=== PATIENT | male | born 1945 | race Caucasian/White ===

== ENCOUNTER 2021-04-20 09:08 | Emergency (ER) | payer MEDICARE, SELFPAY ==
--- NOTE | ~2021-04-20 | XR_ITS ---
EXAMINATION: XR ribs RT 2V DATE: 04/20/2021 10:26 INDICATION: Right low anterior chest pain after sneezing. TECHNIQUE: 2 views of the right ribs on 3 radiographs were obtained. COMPARISON: None. FINDINGS: A calcified right lung nodule is consistent with old granulomatous disease. No right-sided pleural effusion or pneumothorax. There is no rib fracture. IMPRESSION: 1. No rib fracture. Reviewed, dictated and finalized at location A. F EDUCATOR IMPRESSION: 1. No rib fracture.
[2021-04-20 09:38] VITALS: BP 144/67; PULSE 69; RESP 16; TEMP 37; O2SAT 96
--- NOTE | 2021-04-20 10:17 | ED.GENADULT ---
HPI - General Adult General Chief complaint: Unspecified Stated complaint: sharp pain under rib right side Time Seen by Provider: 04/20/21 10:07 Source: patient and RN notes reviewed Mode of arrival: ambulatory Limitations: no limitations History of Present Illness HPI narrative: Patient presents today complaining of right lower rib pain since 530 this morning after he sneezed. Pain increases with deep breath, coughing, and movement. Currently rates his pain 10/10. He has tried heat, cold, and ibuprofen without relief. MD complaint: Rib pain Related Data Home Medications Medication Instructions Recorded Confirmed aspirin 81 mg PO DAILY 04/20/21 04/20/21 atorvastatin 40 mg PO DAILY 04/20/21 04/20/21 levothyroxine 150 mcg PO DAILY 04/20/21 04/20/21 naproxen 500 mg PO PRN PRN 04/20/21 04/20/21 nitroglycerin 0.4 mg SUBLINGUAL PRN PRN 04/20/21 04/20/21 ramipril 10 mg PO DAILY 04/20/21 04/20/21 ropinirole 2 mg PO DAILY 04/20/21 04/20/21 sildenafil 25 mg PO DAILY PRN 04/20/21 04/20/21 Allergies Allergy/AdvReac Type Severity Reaction Status Date / Time No Known Allergies Allergy Unverified 07/24/17 12:37 Review of Systems Review of Systems: CONSTITUTIONAL: Denies body aches, fever, chills, or sweats. EYES: Denies visual changes, redness, or discharge. ENT: Denies rhinorrhea, congestion, sore throat, or otalgia. CARDIOVASCULAR: Denies chest pain, palpitations, or edema.+ Rib pain RESPIRATORY: Denies cough or dyspnea. GASTROINTESTINAL: Denies abdominal pain, nausea, vomiting, or diarrhea. GENITOURINARY: Denies dysuria or hematuria. SKIN: Denies rash, itching, or wounds. MUSCULOSKELETAL: Denies back pain, joint pain, or myalgia. NEUROLOGIC: Denies headache, numbness, tingling, or weakness. PSYCH: Denies depression or anxiety. [facility] Past Medical History Medical History (Updated 04/20/21 @ 10:45 by Milly Cornejo, MUSEUM SERVICE SCHEDULER, ) COPD (chronic obstructive pulmonary disease) High cholesterol History of bladder cancer Hypertension Comments At time of signature, I have reviewed and agree with nursing past medical, surgical, social and family history unless otherwise noted. Please see nursing chart for further information. There is no relevant family history pertinent to the presenting complaint Exam Narrative: GENERAL: Well-appearing, well-nourished, and in no acute distress. HEAD: Normocephalic, atraumatic. EYES: EOMI. No redness or drainage. Conjunctivae normal. ENT: Mucous membranes pink and moist. NECK: Normal AROM. Supple. No lymphadenopathy. CHEST: No respiratory distress. Clear to auscultation. Tenderness to the right anterior lower ribs. No deformity or crepitus noted. HEART: Regular rate and rhythm. No murmur appreciated. Normal peripheral pulses. ABDOMEN: Soft, nontender, nondistended, normal active bowel sounds. MUSCULOSKELETAL: No bony tenderness. EXTREMITIES: Normal range of motion. No edema. SKIN: Warm, dry, no rash. Capillary refill normal. Normal skin turgor. NEURO: No focal deficits. Alert and oriented x3. Gait steady. PSYCH: Normal affect. No signs of depression or anxiety. Course Vital Signs Vital signs: Vital Signs Temperature 98.6 F 04/20/21 09:38 Pulse Rate 69 04/20/21 09:38 Respiratory Rate 16 04/20/21 09:38 Blood Pressure 144/67 H 04/20/21 09:38 Pulse Oximetry 96 04/20/21 09:38 Temperature 98.6 F 04/20/21 09:38 Pulse Rate 69 04/20/21 09:38 Respiratory Rate 16 04/20/21 09:38 Blood Pressure 144/67 H 04/20/21 09:38 Pulse Oximetry 96 04/20/21 09:38 Medical Decision Making Differential Diagnosis Differential Diagnosis: Rib strain, rib fracture Vital Signs Vital Signs: Vital Signs Temperature 98.6 F 04/20/21 09:38 Pulse Rate 69 04/20/21 09:38 Respiratory Rate 16 04/20/21 09:38 Blood Pressure 144/67 H 04/20/21 09:38 Pulse Oximetry 96 04/20/21 09:38 Temperature 98.6 F 04/20/21 09:38 Pulse Rate 69 04/20/21 09:38
== END 2021-04-20 10:55 | disposition home or self-care (01) ==
PROVIDERS: Emergency Provider Nurse Practitioner; PCP Family Medicine
DX: S29.011A Strain of muscle and tendon of front wall of thorax, initial encounter (principal); S21.301A Unspecified open wound of right front wall of thorax with penetration into thoracic cavity, initial encounter; X50.9XXA Other and unspecified overexertion or strenuous movements or postures, initial encounter; J44.9 Chronic obstructive pulmonary disease, unspecified; E78.00 Pure hypercholesterolemia, unspecified; I10 Essential (primary) hypertension; Z85.51 Personal history of malignant neoplasm of bladder
CPT/HCPCS: 71100; 99203; G0463

== ENCOUNTER 2024-06-23 17:28 | Emergency (ER) | payer OTHER, MEDICARE, SELFPAY ==
--- NOTE | ~2024-06-23 | XR_ITS ---
HISTORY: LAT FALL, DISTAL LAT PAIN,UNABLE TO STRAIGHTEN KNEE COMPARISON: None TECHNIQUE: . 3 views of the right knee were performed FINDINGS: No acute displaced fracture within the distal femur, tibia or fibula. Medial and lateral tibiofemoral joint space narrowing is identified. Suprapatellar joint effusion is identified. The infrapatellar joint space is clear. Indeterminate lucency within the patella for which a sunrise view is recommended. 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 Indeterminate lucency within the patella for which a sunrise view is recommended. Reviewed, dictated and finalized at location A. 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 Indeterminate lucency within the patella for which a sunrise view is recommende maribel
--- NOTE | ~2024-06-23 | XR_ITS ---
HISTORY: abnormal x ray COMPARISON: Radiograph evaluation of the right knee performed 1 hour earlier. TECHNIQUE: [place] view of the right knee FINDINGS: No acute fracture is identified within the patella. IMPRESSION: No acute fracture Reviewed, dictated and finalized at location A. ER IMPRESSION: No acute fracture
[2024-06-23 17:36] VITALS: BP 164/59; PULSE 65; RESP 20; TEMP 36.6; O2SAT 97
--- NOTE | 2024-06-23 19:07 | ED.GENADULT ---
HPI - General Adult General Chief complaint: Extremity Injury, Lower Stated complaint: Fall Injury/Right Knee Source: patient and family Mode of arrival: ambulatory Limitations: no limitations History of Present Illness HPI narrative: Patient presents for evaluation of right knee pain. He indicates he slipped on ice outside of the [employer] [place] [employer]. He fell and believes he twisted his right knee. He hit his back on the ground. He did not hit his head. No LOC. He is anticoagulated with Eliquis for atrial fibrillation. He was able to get up off the ground. He is having difficulty with weightbearing. He denies pain at rest but with weightbearing his pain in the right knee increases to a level of 12 on scale of 1-10. He took 650 mg of Tylenol for symptoms. He has underlying restless leg syndrome and peripheral neuropathy. He denies any other injuries. Denies other complaints of pain. Related Data Home Medications ?Medication ?Instructions ?Recorded ?Confirmed ?Last Taken ?Type aspirin 81 mg tablet 81 mg PO DAILY 04/20/21 04/20/21 Unknown History atorvastatin 40 mg tablet 40 mg PO DAILY 04/20/21 04/20/21 Unknown History levothyroxine 150 mcg tablet 150 mcg PO DAILY 04/20/21 04/20/21 Unknown History naproxen 500 mg tablet 500 mg PO PRN PRN Pain 04/20/21 04/20/21 Unknown History nitroglycerin 0.4 mg sublingual 0.4 mg sublingual PRN PRN Chest 04/20/21 04/20/21 Unknown History tablet Pain ramipril 10 mg capsule 10 mg PO DAILY 04/20/21 04/20/21 Unknown History ropinirole 2 mg tablet 2 mg PO DAILY 04/20/21 06/23/24 Unknown History sildenafil 25 mg tablet 25 mg PO DAILY PRN Erectile 04/20/21 04/20/21 Unknown History Dysfunction amlodipine 5 mg tablet 5 mg PO DAILY 06/23/24 Unknown History apixaban 5 mg tablet (Eliquis) 5 mg PO Q12H 06/23/24 Unknown History metoprolol succinate 25 mg 25 mg PO Q24H 06/23/24 Unknown History tablet,extended release 24 hr ropinirole 4 mg tablet 4 mg PO QPM 06/23/24 Unknown History Allergies Allergy/AdvReac Type Severity Reaction Status Date / Time No Known Allergies Allergy Verified 06/23/24 17:41 Review of Systems Review of Systems: CONSTITUTIONAL: Denies fever, chills, or sweats. EYES: Denies visual changes, redness, or discharge. ENT: Denies rhinorrhea, congestion, sore throat, or otalgia. CARDIOVASCULAR: Denies chest pain, palpitations, or edema. RESPIRATORY: Denies cough or dyspnea. GASTROINTESTINAL: Denies abdominal pain, nausea, vomiting, or diarrhea. GENITOURINARY: Denies dysuria or hematuria. SKIN: Denies rash or itching. MUSCULOSKELETAL: Reports right knee pain. Denies back pain NEUROLOGIC: Denies headache, numbness, dizziness, or weakness. PSYCHIATRIC: Denies anxiety or depression. [facility] Past Medical History Medical History History of bladder cancer High cholesterol Hypertension COPD (chronic obstructive pulmonary disease) Surgical History Surgical History History of prostate surgery History of bladder surgery Family History Family History Mother Family history non-contributory Social History Social History Living arrangements: with family Gender identity (if verbalized by the patient): Male Sexual Orientation (if Verbalized by the Patient): Straight or Heterosexual Spiritual care concerns: No Exam Narrative: GENERAL: Well-appearing, well-nourished, and in no acute distress. HEAD: Normocephalic, atraumatic. EYES: PERRLA and EOMI. ENT: Nares clear, no rhinorrhea or epistaxis. Mucous membranes moist. Oropharynx without tonsillar hypertrophy exudate or other lesions. Bilateral TMs pearly elam nonbulging NECK: Supple. No adenopathy or masses. No carotid bruits or JVD CHEST: Clear to auscultation. No respiratory distress. No wheezes rales or rhonchi HEART: Regular rate and rhythm. No murmur heard. Normal peripheral pulses. ABDOMEN: Soft, nontender, nondistended, normal active bowel sounds. EXTREMITIES: Tenderness in the anterolateral aspect of the right knee. There is crepitus in the right knee. There is no obvious deformity. Full range of motion but extension reproduces pain in the right knee SKIN: Warm, dry, no rash. NEURO: No focal deficits. Alert and oriented x3. PSYCH: Normal mood and affect. Course Course Emergency Course: This is a 78-year-old male who presented for evaluation of right knee pain. X-ray negative for fracture. He has a walker and cane available at home. Recommend he get a hinged knee brace. In the meantime we provided him with a knee immobilizer. He has tolerated hydrocodone in the past. He is provided with a prescription for that tonight. He cannot take NSAIDs due to Eliquis use. He has no other injuries. He is advised to follow-up with orthopedics. Increase hydration. [id number] agents for symptom management. Follow up with primary provider. Go to the ER for worsening symptoms. Patient in agreement with plan of care. Level of Care: Express Care Visit Vital Signs Vital signs: Vital Signs Temperature 36.6 C 06/23/24 17:36 Pulse Rate 06/23/24 17:36 Respiratory Rate 06/23/24 17:36 Blood Pressure 164/59 H 06/23/24 17:36 Pulse Oximetry 97 06/23/24 17:36 Oxygen Delivery Room Air 06/23/24 17:36 Temperature 36.6 C 06/23/24 17:36 Pulse Rate 06/23/24 17:36 Respiratory Rate 06/23/24 17:36 Blood Pressure 164/59 H 06/23/24 17:36 Pulse Oximetry 97 06/23/24 17:36 Oxygen Delivery Room Air 06/23/24 17:36 Medical Decision Making Vital Signs Vital Signs: Vital Signs Temperature 36.6 C 06/23/24 17:36 Pulse Rate 06/23/24 17:36 Respiratory Rate 06/23/24 17:36 Blood Pressure 164/59 H 06/23/24 17:36 Pulse Oximetry 97 06/23/24 17:36 Oxygen Delivery Room Air 06/23/24 17:36 Temperature 36.6 C 06/23/24 17:36 Pulse Rate 65 06/23/24 17:36 Respiratory Rate 20 06/23/24 17:36 Blood Pressure 164/59 H 06/23/24 17:36 Pulse Oximetry 97 06/23/24 17:36 Oxygen Delivery Room Air 06/23/24 17:36 Imaging Data Radiologist's impression: Ordering Physician: Davonte Briseno APRN Date of Service: 06/23/24 Procedure(s): XR knee RT min 4V Accession Number(s): [id number] cc: Davonte Briseno APRN; Bubba, Tanmay Hewitt MD~ HISTORY: LAT FALL, DISTAL LAT PAIN,UNABLE TO STRAIGHTEN KNEE COMPARISON: None TECHNIQUE: . 3 views of the right knee were performed FINDINGS: No acute displaced fracture within the distal femur, tibia or fibula. Medial and lateral tibiofemoral joint space narrowing is identified. Suprapatellar joint effusion is identified. The infrapatellar joint space is clear. Indeterminate lucency within the patella for which a sunrise view is recommended. 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 Indeterminate lucency within the patella for which a sunrise view is recommended. Ordering Physician: Davonte Briseno APRN Date of Service: 06/23/24 Procedure(s): XR knee 1-2V RT Accession Number(s): [id number] cc: Davonte Briseno APRN; Bubba, Tanmay Hewitt MD~ HISTORY: abnormal x ray COMPARISON: Radiograph evaluation of the right knee performed 1 hour earlier. TECHNIQUE: [place] view of the right knee FINDINGS: No acute fracture is identified within the patella. IMPRESSION: No acute fracture Discharge Plan Discharge Clinical Impression: Muscle strain of right knee Patient Disposition: Home, Self-Care Condition: Stable Instructions: Antibiotic Form, Knee Pain (ED) Patient Language: [place] Prescriptions: New hydrocodone-acetaminophen 5-325 mg tablet 1 - 2 tablet PO Q6H PRN (Reason: pain) Qty: 20 0RF No Action atorvastatin 40 mg tablet 40 mg PO DAILY naproxen 500 mg tablet 500 mg PO PRN PRN (Reason: Pain) ropinirole 2 mg tablet 2 mg PO DAILY levothyroxine 150 mcg tablet 150 mcg PO DAILY nitroglycerin 0.4 mg tablet, sublingual 0.4 mg sublingual PRN PRN (Reason: Chest Pain) ramipril 10 mg capsule 10 mg PO DAILY sildenafil 25 mg Tablet 25 mg PO DAILY PRN (Reason: Erectile Dysfunction) aspirin 81 mg Tablet 81 mg PO DAILY amlodipine 5 mg tablet 5 mg PO DAILY metoprolol succinate 25 mg tablet extended release 24 hr 25 mg PO Q24H ropinirole 4 mg tablet 4 mg PO QPM Eliquis 5 mg tablet 5 mg PO Q12H Follow-up/Referrals: Harms,Tanmay Hewitt M.D. [Primary Care Provider] - Romulo Szymanski MD [Physician] - Time of Disposition: 19:52
[2024-06-23] MEDS: ACETAMINOPHEN 325 MG TABLET PO (19:20)
--- OUTSIDE RECORDS SUMMARY | 2024-06-25 03:24 | XMS_ITS ---
Author Organization [facility] Address [address] [place] [address] Phone Care Team Providers Care Caretaker Name Role Phone Unavailable Unavailable Unavailable Plan of Treatment No Plan of Treatment Recorded Assessments Includes: Assessments for all patient encounters No Assessments Recorded Medical Equipment - Implanted Devices Includes: Current and historical Devices No Medical Equipment Recorded Medications Administered Includes: Administered Medications in patient's chart No Administered Medications Recorded Results Includes: Results from 06/25/2023 through 06/25/2024 No Results Recorded For Specified Dates History of Present Illness History of Present Illness not supported for this document type No History of Present Illness Recorded Social History No Social History Recorded - Smoking Status Unknown Medical History Includes: Medical History in patient's chart No Medical History Recorded Family History Includes: Family History in patient's chart No Family History Recorded Review of Systems Review of Systems not supported for this document type No Review of Systems Recorded Mental Status No Mental Status Recorded Functional Status No Functional Status Recorded Physical Exam Physical Exam not supported for this document type No Physical Exam Recorded Clinical Notes Includes: Signed Clinical Notes starting from 06/21/2022 No Clinical Notes Recorded
--- OUTSIDE RECORDS SUMMARY | 2024-06-25 03:24 | XMS_ITS ---
Care Plan - [facility] Created on: June 25, 2024 JOSE NDIAYE : 1945 Sex: Male Author Organization [facility] Address [address] [place] [address] Phone Care Team Providers Care Dairy Clerk Name Role Phone Unavailable Unavailable Unavailable
--- OUTSIDE RECORDS SUMMARY | 2024-06-25 03:25 | XMS_ITS | Clinical Summary ---
Author Organization [facility] Address [address] [place] [address] Phone Care Team Providers Care Wool Hanker Name Role Phone Unavailable Unavailable Unavailable Reason for Visit and Chief Complaint GENERAL OFFICE VISIT Plan of Treatment No Plan of Treatment Recorded Assessments Includes: Assessments from this encounter No Assessments Recorded Medical Equipment - Implanted Devices Includes: Current Devices No Medical Equipment Recorded Medications Administered Includes: Administered Medications from this encounter No Administered Medications Recorded Results Includes: Results discussed during this encounter No Results Recorded For Specified Dates History of Present Illness Includes: History of Present Illness from this encounter No History of Present Illness Recorded Social History No Social History Recorded - Smoking Status Unknown Medical History Includes: Medical History addressed during this encounter No Medical History Recorded Family History Includes: Family History addressed during this encounter No Family History Recorded Review of Systems Includes: Review of Systems from this encounter No Review of Systems Recorded Mental Status Includes: Mental Status from this encounter No Mental Status Recorded Functional Status Includes: Functional Status from this encounter No Functional Status Recorded Physical Exam Includes: Physical Exam from this encounter No Physical Exam Recorded Encounters Encounter Provider Location Date Check-In Time Check- Out Time Diagnosis GENERAL OFFICE VISIT [facility] 8 9:45AM 11:59PM Clinical Notes Includes: Clinical Notes from this encounter No Clinical Notes Recorded
--- OUTSIDE RECORDS SUMMARY | 2024-06-25 03:25 | XMS_ITS | Clinical Summary ---
Author Organization [facility] Address [address] [place] [address] Care Team Providers Care Dress Shoe Inspector Name Role Phone Tanmay Mac MD Primary Care Provider [phone] Roger De MD Unavailable [phone] Jose Joyce MD Unavailable Stanley Hurtado MD Unavailable [phone] Allergies Active Allergy Reactions Criticality Noted Date Comments Duloxetine Diarrhea,Other (See comments) Low 02/05/2023 Blood Pressure increase Medications melatonin 5 mg tablet Take 1 tablet (5 mg total) by mouth nightly Active aspirin 81 mg enteric coated tablet Take 1 tablet (81 mg total) by mouth daily 30 tablet 0 Active gjjebaix-zcs-F U-zqyxzfc-expy in 0.4-300-250 mg-mcg-mcg tabletIndicati ons:Vitamin Deficiency Prevention 1 tablet Active iron, carbonyl 25 mg iron tablet Take by mouth Active magnesium gluconate 200 mg tabletIndicati ons:hypomagnes emia 1 tablet (200 mg total) Active ramipriL (ALTACE) 10 mg capsule TAKE 2 CAPSULES BY MOUTH DAILY 180 capsule 3 4 Active atorvastatin (LIPITOR) 40 mg tablet TAKE 1 TABLET BY MOUTH EVERY DAY 90 tablet 1 4 Active triamcinolone (KENALOG) 0.1 % cream Apply to affected area 1-2 times daily as needed. Avoid face and groin. 80 g 5 4 02/09/20 25 Active Additional Information Patient not taking.Reported on 06/21/2024 metoprolol XL (TOPROL-XL) 25 mg extended release tablet Take 2 tablets (50 mg total) by mouth daily for 30 doses 60 tablet 4 Active apixaban (ELIQUIS) 5 mg tablet Take 1 tablet (5 mg total) by mouth 2 (two) times a day 60 tablet 11 4 Active amLODIPine (NORVASC) 5 mg tablet Take 1 tablet (5 mg total) by mouth daily 30 tablet 11 4 03/23/20 25 Active levothyroxine (SYNTHROID) 150 mcg tablet TAKE 1 TABLET BY MOUTH EVERY DAY 100 tablet 1 4 Active pramipexole (MIRAPEX) 1 mg tablet Take 1 tablet (1 mg total) by mouth nightly 30 tablet 1 5 Active rOPINIRole (REQUIP) 4 mg tablet TAKE 1 TABLET BY MOUTH EVERY DAY NIGHTLY 90 tablet 3 4 06/21/19 25 Discontin ued(Alter chintan therapy) Active Problems Problem Noted Date Diagnosed Date RLS (restless legs syndrome) 06/21/2024 Assessment & Plan (06/21/2024 9:11 AM RIBBON CUTTER): WIll switch from ropinirole to mirapex and will follwor esponse. Spinal stenosis of lumbar re gion with neurogenic claudication 06/21/2024 Assessment & Plan (06/21/2024 9:12 AM RIBBON CUTTER): Refer for MRI. Pain radiating into the lower extremities. Does much better leaning forward with extended walking. Script given for rollator walker. Dyspepsia 06/21/2024 Assessment & Plan (06/21/2024 9:13 AM RIBBON CUTTER): NO evidence of an acute abdomen. No prior EGD. M Most likely body habitus related and while travelling. Stop iron supplemetnation. WIll montiro respnose. Check ultrasound for biliary pathology. Nicotine dependence with current use 04/07/2024 Assessment & Plan (04/07/2024 11:47 AM RIBBON CUTTER): Encouraged cutting back. Hospital discharge follow-up 04/07/2024 Assessment & Plan (04/07/2024 11:46 AM RIBBON CUTTER): IMahsa NP have personally reviewed pertinent inpatient and/or ED records, including discharge medications and Clindesk if applicable. This patient's discharge medication list has been reviewed and reconciled with his outpatient medication list and has also been reviewed with patient and/or caregiver. I have noted any changes. BMI 37.0-37.9, adult 02/09/2024 Assessment & Plan (06/21/2024 9:11 AM RIBBON CUTTER): ENcourage 150min/week aerobic exericse. Follow response. Assessment & Plan (02/09/2024 9:58 AM CDT): Encoruage 150min/week aerobic exericse. Healthy food chocies. Severe obesity (BMI 35.0-39.9) with comorbidity 02/09/2024 Assessment & Plan (06/21/2024 9:11 AM RIBBON CUTTER): Encourage 150min/weeka erobic exercise. WIll follow response. Assessment & Plan (02/09/2024 9:58 AM CDT): As above. Annual physical exam 02/09/2024 Assessment & Plan (02/09/2024 9:58 AM CDT): Reviewed lifsetyle changes related to prediabetes and will montior response. Continue colon/prostate cancer screneing. Reviewed dermatology evaluatoin and suns/kin cancer screening. Reivewed mobility changes. Prediabetes 02/09/2024 Assessment & Plan (02/09/2024 9:59 AM CDT): Reviewedi mpact of exercise and BMI on glucose regulation. WIll follow response. Chest pain 01/27/2024 SOB (shortness of breath) 01/27/2024 Paroxysmal atrial fibrillation (CMS/HCC) 024 Overview (01/15/2024): Some atrial fibrillation noted on cardiac monitoring in December 2023. It occurred less than 1% of the time. Eliquis 5 mg p.o. b.i.d. suggested (Rick Vasc score of 3 with a 3.2% yearly stroke risk) but patient is not taking it. Assessment & Plan (06/21/2024 9:11 AM RIBBON CUTTER): Contiues on metoprolol XL and apixaban. WIll follow response. Assessment & Plan (04/07/2024 11:48 AM RIBBON CUTTER): Rate controlled. Continue metoprolol, eliquis. Continue f/u with Cardiology. Red flags reviewed. Assessment & Plan (03/23/2024 12:27 PM CDT): Apparently had an episode of atrial fibrillation recently requiring ER visit. Increase in Toprol-XL was suggested but he was reluctant because he runs low heart rate in the 50s. The same record showed rather high blood pressures in the 170 mm systolic range. I will add a 3rd antihypertensive agent with Norvasc 5 mg p.o. q.d.. I advised him to keep a blood pressure record and show it to Dr. Mac in a few weeks. He had cranberry juice with vodka just prior to the rapid episode. In addition, he still has a nicotine patch. We discussed his chads Vasc score of 3 and now he is willing to get started on Eliquis 5 mg p.o. b.i.d.. I gave him usual bleeding precautions. We discussed possible need for permanent pacemaker for tachy-charly syndrome. Assessment & Plan (01/15/2024 12:18 PM CDT): Patient had a rapid heart rate around 150 beats per minute on 09 November 2023 and was seen in the ED. By the time he came in to the emergency room, he converted back to normal and EKG then indeed showed sinus rhythm. He will need Eliquis 5 mg p.o. b.i.d.. I will start this after the cardiac catheterization done. Chest wall muscle strain 04/18/2022 Former cigarette smoker 12/28/2020 Class 2 severe obesity due t o excess calories with serious comorbidity and body mass index (BMI) of 38.0 to 38.9 in adult 08/01/2020 Assessment & Plan (08/01/2020 10:41 AM RIBBON CUTTER): Reviewed need to lose weight, reviewed health benefits. Reviewed recommendations for daily intake & activity 20-30 minutes/day. Discussed healthy diet and importance of regular physical activity. Centrilobular emphysema 07/18/2020 Assessment & Plan (04/07/2024 2:54 PM RIBBON CUTTER): No recent exacerbations. Highly encouraged to continue cutting back tobacco. We will also avoid nicotine gum. Red flags reviewed. Assessment & Plan (08/01/2020 10:42 AM RIBBON CUTTER): COPD remains stable. [facility] (Dr Mohamud). Discussed monitoring symptoms and use of quick-relief medications; to contact us early in course of exacerbation. Warning signs of respiratory distress were reviewed with Jose Em. Will continue current treatment at this time. Encounter for Medicare annual wellness exam 07/03 Assessment & Plan (08/01/2020 10:42 AM RIBBON CUTTER): 1. Eat a healthy diet: focus on lean meats and proteins, more fruits, vegetables and whole grains and low in sugars and fats. Limit red meat and avoid processed meat. 2. Maintain a healthy weight; avoid being overweight. Aim for a normal body mass index (BMI) of 18.5-24.9. Help learning to eat healthier, we can set up appointment with fabrication mig welder/rubber moulding machine operator. 3. Have an active lifestyle, strive for 30 minutes of moderate exercise 5 times a week and strength or resistance training at least twice a week. 4. Use broad-spectrum (UVA+UVB) sunscreen with SPF 30 or greater, is water resistant, limit time spent in the sun (10 am-4pm), wear hat, wear UV protective clothing, wear sunglasses. Never use a tanning bed. Skin that was irradiated may be more sensitive over your lifetime. 5. Does not smoke or chew tobacco. 6. Limit alcohol intake, 2 drinks per day for a man. Malignant neoplasm of urinary bladder 05/10/2020 Assessment & Plan (06/21/2024 9:10 AM RIBBON CUTTER): Continue annual f/u with urology. No recurrent hematuria or other abonralities. Assessment & Plan (02/09/2024 9:57 AM CDT): Continue f/u with Dr. Barclay. No evidence fo recurrence. Assessment & Plan (08/01/2020 10:44 AM RIBBON CUTTER): Managed by Dr Joyce. Completed BCG 05/2020. Enlarged prostate 12/10/2019 Overview (12/10/2019): Added automatically from request for surgery [id number] Gross hematuria 12/01/2019 Bladder mass 11/26/2019 Overview (11/26/2019): Added automatically from request for surgery [id number] Hematuria 07/13/2019 Abnormal glucose 04/19/2019 Assessment & Plan (12/23/2019 10:00 AM CDT): I've suggested weight loss, if this is ineffective consideration to low-dose metformin could be considered. Bilateral carotid artery stenosis 04/19/2019 Overview (12/28/2020): Carotid ultrasound 12/27/2019: Conclusions: 1. Mild (20-50%) atherosclerosis with no evidence of significant stenosis of the extracranial carotid arteries bilaterally. 2. Bilateral antegrade vertebral flow. 3. A follow-up study may be performed after 1 year. Assessment & Plan (12/28/2020 8:34 AM CDT): Patient remains asymptomatic with his known carotid disease. I will re-evaluate it again this year, if no change has occurred I will likely wait 2 years inbetween surveillance. Assessment & Plan (12/23/2019 10:06 AM CDT): Patient has follow-up carotid ultrasound planned for the coming week, we will be in touch with him by phone with those results. Essential hypertension 03/26/2019 Assessment & Plan (08/01/2020 10:43 AM RIBBON CUTTER): The blood pressure is under good control. Ideally it should be under 130/80. Continue medications without adjustment. Continue efforts to eat well (4-5 fruits and veggies) daily and exercise for about 30 min nearly every day. Watch salt intake, keeping to less than 2000mg per day. Limit alcohol. Include strategies to cope with stress. Elevated LDL cholesterol level 03/26/2019 Overview (03/23/2024): LDL of 112 mg/dL on 26 March 2019. LDL of 45 mg/dL on 17 June 2019. LDL of 40 mg/dL on 12 September 2021. LDL of 54 mg/dL on 13 August 2022. LDL of 62 mg/dL on 16 July 2023. LDL of 59 mg/dL on 16 January 2024. On Lipitor 40 mg p.o. q.d.. Assessment & Plan (01/15/2024 12:17 PM CDT): Discussed LDL cholesterol goal of less than 70 mg/dL. He has been at goal since 2020. No change in medical regimen here. Assessment & Plan (10/07/2023 11:46 AM CDT): Discussed LDL cholesterol goal of less than 70 mg/dL. He has been at goal over the past 4 years. No change in medical regimen here. Assessment & Plan (08/08/2022 2:33 PM RIBBON CUTTER): We discussed LDL cholesterol goal of less than 70 mg/dL. He has been at goal since 2020. No change in medical regimen here. Assessment & Plan (12/28/2020 8:32 AM CDT): Patient's LDL cholesterol in July was 63. I suggested he continue to work on weight management. Assessment & Plan (08/01/2020 10:40 AM RIBBON CUTTER): 06/17/19 BT=588 HDL=39 EU=076 LDL=45 TC/HDL=3.0 08/01/20 FZ=260 HDL=36 KH=441 LDL=63 TC/HDL=3.6 Atorvastatin 40mg daily. Needs to increase activity. The 10-year ASCVD risk score (Christopher NELSON Jr., et al., 2013) is: 23.5% Values used to calculate the score: Age: 74 years Sex: Male Is Non- : No Diabetic: No Tobacco smoker: No Systolic Blood Pressure: 134 mmHg Is BP treated: Yes HDL Cholesterol: 39 mg/dL Total Cholesterol: 130 mg/dL Patient should focus on limiting bad fats in the diet and using exercise as a way to improve the lipid status. Secondary prevention. Reviewed medications. Denies any statin Ses. Reviewed diet/exercise recommendations. Reviewed red flags. Assessment & Plan (06/27/2020 10:28 AM RIBBON CUTTER): Patient's LDL cholesterol previously was 45 but it is about time to re-evaluate this. If it has gone relatively unchanged he should have no need for alteration to his medical regimen. Assessment & Plan (12/23/2019 9:59 AM CDT): Patient remains free of any symptoms to suggest angina. His LDL cholesterol was less than 50 mg/dL. His hemoglobin A1c was 6.0. He will continue with his current medical regimen. Coronary artery disease invo lving [place] coronary artery of sk[place] heart without angina pectoris 03/26/2019 Overview (08/08/2022): Status post ARETHA to mid LAD and ARETHA to mid RCA on 26 March 2019 (RL). Normal Cardiolite on 05 July 2020. LVEF of 69%. Assessment & Plan (06/21/2024 9:10 AM RIBBON CUTTER): Seconddary prevneiton. Continues on asa and statin terhapy. Assessment & Plan (03/23/2024 12:26 PM CDT): We discussed cardiac intervention from 5 years ago. He has not had any chest pain or shortness of breath with activities. Assessment & Plan (02/09/2024 9:57 AM CDT): Secondary rpevneitno. COntinue on aspirin and statin therapy. Upcoming diagnostic catheterization. Assessment & Plan (01/15/2024 12:17 PM CDT): He has been having exertional shortness of breath with moderate exertion. Room to room walking is okay. Also had an episode of chest discomfort lasting 15 minutes a few weeks ago when his heart rate was going 150 beats per minute. We discussed the option of either another pharmacologic nuclear stress test or a cardiac catheterization. We decided on doing a cardiac catheterization in the next week or two. Assessment & Plan (11/13/2023 12:41 PM CDT): Continue secondary prevention with atorvastatin aspirin, LDL is at goal. Congratulated patient on quitting smoking. Assessment & Plan (10/07/2023 11:45 AM CDT): Discussed cardiac intervention from 5 years ago. He has not had any chest pain or shortness of breath with activities. Readily admits that he has gained 5-10 lb since the last visit. I recommended a regular walking program. He wanted a cheeseburger, surely he was joking. Assessment & Plan (08/08/2022 2:33 PM RIBBON CUTTER): We discussed cardiac catheterization and interventional result from 2019. He had shortness of breath at that time. No more shortness of breath since procedure was done. He has really not been doing much because of neuropathy. No change in medical regimen here. Assessment & Plan (12/28/2020 8:32 AM CDT): Patient remains free of any symptoms to suggest angina or heart failure. He will continue with aggressive secondary risk factor modification. Assessment & Plan (08/01/2020 10:42 AM RIBBON CUTTER): Managed by Dr Wallace at [facility] Assessment & Plan (06/27/2020 10:29 AM RIBBON CUTTER): Patient's episode of chest discomfort may represent angina but this time without evidence for recurrence despite active lifestyle I will adjust his metoprolol dose to 50 mg daily and evaluate this further with Lexiscan stress testing on his beta-magda. If no significant area of ischemia exists he will continue with his current medical regimen and I will review his care in about 6 months. Because of the patient's use of sildenafil. I have suggested he discontinue his sublingual nitroglycerin. Assessment & Plan (12/23/2019 10:06 AM CDT): Patient remains free of any symptoms to suggest angina or heart failure he will continue with his current medical regimen and aggressive secondary risk factor modification. Recurrent right inguinal hernia 05/07/2018 Assessment & Plan (05/07/2018 2:15 PM RIBBON CUTTER): Will obtain CT abdomen and pelvis for surgical planning due to previous hernia repair with mesh. Keratosis, senilis 02/26/2017 Lumbar radiculopathy 01/14/2017 Psoriasis 05/22/2016 Assessment & Plan (06/21/2024 9:10 AM RIBBON CUTTER): Referral to dermatology for second opinion. Prior sensitometrist tried to prescribe skyrizi but copay was not feasible. Continues on gold valdivia psoriasis therapy. Assessment & Plan (02/09/2024 9:57 AM CDT): Trial of triamcinolone sent to pharmacy. No s/s of secondary bacterial infection. Eczema 05/22/2016 Cyst of breast 09/27/2015 Overview (09/05/2016): Breast cyst SVT (supraventricular tachycardia) ([facility]) Overview (08/08/2022): Status post ablation of AVNRT and atrial flutter on 23 February 2015 (DG). Assessment & Plan (03/23/2024 12:24 PM CDT): We discussed ablation procedure from 9 years ago. Assessment & Plan (02/09/2024 9:56 AM CDT): Contniues f/u with Cardiology. Roselineing for presence of afib. Assessment & Plan (11/13/2023 12:40 PM CDT): Normal sinus rhythm today in office, denies any recurrence of tachycardia, chest pain or shortness breath. Continue to monitor closely. Following with Cardiology as well. Assessment & Plan (10/07/2023 11:46 AM CDT): Patient denies any palpitations, dizziness or syncope. Exam in the office today revealed a regular rhythm likely sinus. Assessment & Plan (08/08/2022 2:36 PM RIBBON CUTTER): Patient could not remember the location or the physician so we had to dig it up. Ever since the ablation, he has not had any palpitations. Obstructive sleep apnea syndrome 01/17/2014 Overview (09/05/2016): Obstructive sleep apnea Assessment & Plan (02/09/2024 9:56 AM CDT): Reviewed import of nightly CPAP. WIll follow respnose. Decreased fatigue and will montior resopnse. Assessment & Plan (08/01/2020 10:44 AM RIBBON CUTTER): Reports 100% compliance w/CPAP. Hypothyroidism 01/17/2014 Overview (09/05/2016): Hypothyroidism Assessment & Plan (02/09/2024 9:57 AM CDT): Clinicaly and chemically euthryoid. No change at the present time. Assessment & Plan (08/01/2020 10:50 AM RIBBON CUTTER): TSH/T4 ordered; will contact with results when received. Reviewed med SE & scheduling. Reviewed sxs hypo/hyperthyroidism. No changes at this time. Has not had TFTs checked since 2018. Resolved Problems Problem Noted Date Diagnosed Date Resolved Date BMI 36.0-36.9,adult 08/01/2020 08/02/19 21 Urine troubles 07/13/2019 07/18/2020 Severe obesity (BMI 35.0-39. 9) with comorbidity 07/02/2019 07/18/2020 Smokeless tobacco use 03/26/20192020 Right testicular pain 05/07/20182020 Assessment & Plan (05/07/2018 2:16 PM RIBBON CUTTER): Ct will also evaluate for any abnormality, but long discussion with the patient regarding odds of pain due to previous hernia, he stated that the symptoms were severe to the right testicle prior to first right inguinal hernia repair. Discussed possible pain management referral. Tinea pedis 06/25/2016 07/18/2020 Thumb pain 07/11/2014 07/18/2020 Overview (09/05/2016): Pain in thumb Pain of hand 07/11/2014 07/18/2020 Overview (09/05/2016): Pain in hand Encounters Date Type Department Care Team Description 06/21/2024 8:30 AM RIBBON CUTTER Office Visit [facility] [address] [id number] Tanmay Mac MD Dyspepsia (Primary Dx); Spinal stenosis of lumbar region with neurogenic claudication; Coronary artery disease involving [place] coronary artery of sk[place] heart without angina pectoris; Malignant neoplasm of urinary bladder, unspecified site (HCC); Paroxysmal atrial fibrillation (CMS/HCC) (HCC); RLS (restless legs syndrome); BMI 37.0-37.9, adult; Severe obesity (BMI 35.0-39.9) with comorbidity (HCC); Psoriasis 06/16/2024 Nurse Triage [facility] [address] [address] Tanmay Mac MD 05/02/2024 [facility] Accountable Care Organization [address] [place] [id number] Phuong Valdivia MA 04/20/2024 [facility] Care Organization [address] [place] [id number] Maude Edouard CMA 04/08/2024 9:50 AM RIBBON CUTTER Lab [facility] [address] [place] [address] 04/07/2024 11:30 AM RIBBON CUTTER Office Visit [facility] [address] [place] [address] Mahsa Bunn NP Paroxysmal atrial fibrillation (CMS/HCC) (HCC) (Primary Dx); Centrilobular emphysema (HCC); Nicotine dependence with current use; Hospital discharge follow-up; Class 2 severe obesity due to excess calories with serious comorbidity and body mass index (BMI) of 39.0 to 39.9 in adult (HCC) from Last 3 Months Immunizations Name Administration Dates Next Due Influenza, Quad, Adjuvantate d, Intramuscular 03/09/2023,03/08/2021 Influenza, Quadrivalent, Hig h Dose, Preservative Free, Intrr 03/14/2022,03/28/2020 Influenza, Quadrivalent, Spl it, Preservative Free, Intramuscular 02/27/2015 Influenza, Trivalent, High D ose, Split, Preservative Free, Intramuscular 03/04/2024,03/11/2018,04/03/2017,02/11 Influenza, Trivalent, IM (MDV) 01/31/2014 Influenza, Unspecified 02/05/2023(Deferr ed: Patient Refused),02/07/2021(Deferred: Patient Refused),03/08/2019 Moderna SARS-CoV-2 Monovalen t Vaccination (12+ YRS) 04/06/2021,08/21/2020,07/13/2020 Pneumococcal Conjugate PCV 13 05/01/2018, 016 Pneumococcal Conjugate Pcv20 03/04/2024 Pneumococcal Polysaccharide PPV23 05/07/2019,06/2012,06/02/2012 RSV Vaccine, Pref, Recombina nt, Subunit, Adjuvanted, PF, IM (Arexvy) 07/16/2023 TD Preservative Free 07/04/2016 ZOSTER Recombinant 12/30/2020,09/02/2018, 019 Surgical History Surgery Date Site/Laterality Comments CARDIAC ELECTROPHYSIOLOGY STUDY AND ABLATION Cardiac ablation OTHER SURGICAL HISTORY 10/13/2015 Bilateral TEP endoscopic bilateral inguinal hernia OTHER SURGICAL HISTORY 10/13/2015 Right Right Mastectomy / Benign COLONOSCOPY 06/02/2013 - 06/01/2014 HERNIA REPAIR 06/30/2018 Right Laparoscopic Robotic Assisted Right Inguinal Hernia Repair BREAST BIOPSY 06/02/2015 - 06/01/2016 Right benign BLADDER SURGERY PROSTATE SURGERY 01/01/2020 - 01/31/2020 CARDIAC CATHETERIZATION 06/02/2018 - 06/01/2019 Medical History Medical History Date Comments Cardiovascular disease Coronary artery disease Hx Other Medical 2007 bundle branch t achacardia; Comments: PLD 01/17/2014 - Hx Other Medical 1999 underactive thy roid; Comments: PLD 01/17/2014 - Hx Other Medical 2012 psoriasis; Comm ents: PLD 01/17/2014 - Hypertension Hypertension Hx Other Medical Restless leg sy ndrome; Comments: GDS 09/27/2015 - Sleep apnea Hypothyroidism Chronic leg pain Psoriasis Inguinal hernia Chest pain 03/2019 Hematuria Erectile dysfunction Hyperlipidemia Coronary artery disease cardiac stents x 2 COPD (chronic obstructive pu lmonary disease) (HCC) Cancer (CMS/HCC) (HCC) bladder Carotid artery disease (HCC) Peripheral neuropathy Emphysema of lung (HCC) Family History Medical History Relation Name Comments Cancer Father Augusto Em Multiple myeloma Father Augusto Em Hypertension Maternal Grandfather Darrick Kasper Arthritis Mother Tena Em Cancer Mother Tena Em Other Mother Tena Em Alive and we ll; /Age 90 wih arthritis.; Cancer Other 1 Family history of Cancer; Heart disease Other 2 Osteoarthritis Other 2 Family histor y of Osteoarthritis; Diabetes Paternal Grandmother Gloria Em Relation Name Status Comments Father Augusto Em Maternal Grandfather Darrick Kasper Mother Tena Em Other 1 Other 2 Paternal Grandmother Gloria Em Social History Tobacco Use Types Packs/Day Years Used Date Smoking Tobacco: Former Cigarettes 0.8 56 1 959 - 2015 Smokeless Tobacco: Never Tobacco Cessation:Counseling Given: Not Answered Alcohol Use Standard Drinks/Week Comments No 0 (1 standard drink = 0.6 oz pur e alcohol) AUDIT-C Answer Date Recorded Q1: How often do you have a drink containing alc ohol? Monthly or less 07/29/2022 Q2: How many drinks containi ng alcohol do you have on a typical day when you are drinking? 1 or 2 07/29/2022 Q3: How often do you have si x or more drinks on one occasion? Never 07/29/2022 Overall Financial Resource Strain (CARDIA) Answe r Date Recorded How hard is it for you to pa y for the very basics like food, housing, medical care, and heating? Not hard at all 12/03/2019 PHQ-2 Answer Date Recorded PHQ-2 Total Score (If total score is 3 or more points, staff should administer the PHQ-9) 0 06/21/2024 Hunger Vital Sign Answer Date Recorded Within the past 12 months, y ou worried that your food would run out before you got the money to buy more. Never true 12/03/19 20 Within the past 12 months, t he food you bought just didn't last and you didn't have money to get more. Never true 12/03/2019 PRAPARE - Transportation Answer Date Re corded In the past 12 months, has l ack of transportation kept you from medical appointments or from getting medications? No 08/2019 In the past 12 months, has l ack of transportation kept you from meetings, work, or from getting things needed for daily living? No 12/03/2019 Personal Safety Answer Date Recorded Have you ever been in or are you currently in a harmful physical or emotional relationship or is someone making you feel afraid or unsafe? Denies 03/20/2024 Sex and Gender Information Value Date Recorded Sex Assigned at Not on file Legal Sex Male 10:06 AM RIBBON CUTTER Gender Identity Male 04/08/2021 3:39 PM RIBBON CUTTER Sexual Orientation Straight 04/08/2021 3: 39 PM RIBBON CUTTER Obstetrics History Last Filed Vital Signs Vital Sign Reading Time Taken Comments Blood Pressure 128/72 06/21/2024 8:14 AM RIBBON CUTTER Pulse 55 06/21/2024 8:14 AM RIBBON CUTTER Temperature 36.4 ??C (97.6 ??F) 06/21/2024 8:14 AM CS T Respiratory Rate 18 06/21/2024 8:14 AM RIBBON CUTTER Oxygen Saturation 97% 06/21/2024 8:14 AM RIBBON CUTTER room air Inhaled Oxygen Concentration - - Weight 115.2 kg (254 lb) 06/21/2024 8:14 AM RIBBON CUTTER Height 175.3 cm (5' 9 ) 06/21/2024 8:14 AM RIBBON CUTTER Body Mass Index 37.51 06/21/2024 8:14 AM RIBBON CUTTER Plan of Treatment Health Maintenance Due Date Last Done Comments Hepatitis B Screening 09/25/1963 DTaP/Tdap/Td Vaccine (1 - Tdap) 07/05/2016 7 Covid-19 Vaccine (4 2023-2 5 season) 2024 04/06/2021, 08/21/2020, 07/13/2020 Lung Cancer Screening 07/10/2024 07/10/2023 , 07/05/2022, 06/18/2021, Additional history exists Well Visit 65+ 02/08/2025 02/09/2024, 07/04, 08/01/2020, Additional history exists Depression Screening 06/21/2025 06/21/2024, 04/07/2024, 02/09/2024, Additional history exists Fall Risk Assessment 06/21/2025 06/21/2024, 02/23/2024, 02/09/2024, Additional history exists Colon Cancer Screening-CT Colonography Discontinued 07/02/2016 Colon Cancer Screening-Colonoscopy Discontinued 07/02/2016 Colon Cancer Screening-DNA Stool Discontinued 07/02/19 Colon Cancer Screening-FIT Discontinued 07/02/2016 Colon Cancer Screening-FOBT Discontinued 07/02/2016 Colon Cancer Screening-Sigmoidoscopy Discontinued 07/02/2016 Colorectal Cancer Screening Discontinued Abdominal Aortic Aneurysm (A AA) Screen Completed 05/15/2018, 12/09/2016 Zoster Vaccine Completed 12/30/2020, 04/0 07/2018, 06/18/2018 Influenza Vaccine Completed 03/04/2024, , 03/14/2022, Additional history exists Pneumococcal vaccine 65+ Completed 024, 05/07/2019, 05/01/2018, Additional history exists Hepatitis C Screening Completed 04/08/2024 Medical Devices Implanted Type Area Stringer Machine Tender Device Identifier Shelf Expiration Date Model / Serial / Lot [employer] [id number] Progrip 15x9cm Self Gold Assayer Rectangle Mesh Surgical Polyester Hernia - [id number] Implanted:Qty: 1 on 06/30/2018 by Shane Garcia MD at [facility] Mesh Right: Groin [employer] 07/30/2022 [id number] / / [id number] [employer] [id number] System Coronary Stent Xience Megha Everolimus L18 Mm Od3.25 Mm Rapid Exchange - [id number] Implanted:Qty: 1 on 03/26/2019 by Roger De MD at [facility] Stent [employer] 09/09/2019 [id number] / / [id number] [employer] [id number] Synergy 3.5mm 16mm 144cm Radiopaque 1 Access Port Inflation Lumen - [id number] Implanted:Qty: 1 on 03/26/2019 by Roger De MD at [facility] Stent [employer] Kirk 12/29/2020 [id number] / / [id number] Daig [employer] [id number] Angio-Seal Evolution 6fr .035in Guidewire Bypass Tube Suture - [id number] Implanted:Qty: 1 on 03/26/2019 by Roger De MD at [facility] [employer]ig [employer] 11/30/2019 [id number] / / [id number] Procedures Procedure Name Priority Date/Time Associated Diagnosis Comments HEPATITIS B SURFACE ANTIBODY (IMMUNE STATUS) Routine 04/08/2024 3:03 PM RIBBON CUTTER T-SPOT.TB Routine 04/08/2024 10:41 AM RIBBON CUTTER EGFR Routine 04/08/2024 9:50 AM RIBBON CUTTER DIFFERENTIAL AUTO Routine 04/08/2024 9:5 0 AM RIBBON CUTTER LIPID PANEL Routine 04/08/2024 9:50 AM RIBBON CUTTER HEPATIC FUNCTION PANEL Routine 04/08/2024 9:50 AM RIBBON CUTTER CBC WITH AUTO DIFFERENTIAL Routine 04/08/2024 9:50 AM RIBBON CUTTER BASIC METABOLIC PANEL Routine 04/08/2024 9:50 AM RIBBON CUTTER HEPATITIS C ANTIBODY Routine 04/08/2024 9:[address] LUNG CANCER SCREENING Schedule Routine, Read Routine (OP Routine) 07/10/2023 10:25 AM RIBBON CUTTER Personal history of nicotine dependence CT ABDOMEN PELVIS W CONTRAST Today 05/15/2018 8:53 AM RIBBON CUTTER Recurrent right inguinal hernia COLONOSCOPY 07/02/2016 12:00 AM RIBBON CUTTER from Last 3 Months or Most Recently Relevant to Health Maintenance Results * Hepatitis B surface antibody (immune status) Blood (04/08/2024 3:03 PM RIBBON CUTTER) HBsAb (immune status) Nonreactive Comment: Interpretive Data Nonreactive: This result is consistent with a lack of immunity to Hepatitis B Virus when used in the setting of routine screening. Equivocal: The immune status of the individual should be further assessed, if appropriate, after consideration of clinical status, risk factors, and additional diagnostic information. Reactive: This result is consistent with immunity to Hepatitis B Virus when used in the setting of routine screening. Current interpretive data was last revised on 19. Testing performed by: [facility], [address] [place] [address]., [facility] Blood 04/08/2024 3:03 PM RIBBON CUTTER 04/08/2024 3:03 PM RIBBON CUTTER Tim Robison MD LAB MICROBIOLOGY - [facility] AL ORDERABLES Final Result [facility] RHODHISS) 1 [facility] Department [place] [address] * T-SPOT.TB Blood (04/08/2024 10:41 AM RIBBON CUTTER) T-SPOT.TB Negative SeeBelow Comment: Normal Value: Negative A negative test result does not exclude the possibility of exposure to or infection with Mycobacterium tuberculosis (M. tuberculosis). ??Patients with recent exposure to TB infected individuals exhibiting a negative T-SPOT.TB result should be considered for retesting within 6 weeks or if other relevant clinical symptoms indicate. ??Results from T-SPOT.TB testing must be used in conjunction with each individual's epidemiological history, current medical status, and results of other diagnostic evaluations. ??The T-SPOT.TB test is qualitative and results are reported as positive, borderline or negative, given that the test controls perform as expected. In line with the Centers for Disease Control and Prevention's 2010 recommendation to report quantitative measurements alongside the qualitative result, the laboratory provides spot counts for informational purposes only. ??The T-SPOT.TB test should not be interpreted as a quantitative test. Testing performed by: [facility], [address] [place] [address], [id number] T-SPOT.TB Panel A Spot Count 0 [facility] (MARY) Comment:Testing performed by : [facility], [address] [place] [address], [id number] T-SPOT.TB Panel B Spot Count 0 [facility] (MARY) Comment:Testing performed by : [facility], [address] [place] [address], [id number] T-SPOT.TB Negative Control Passed [facility] (MARY) Comment:Testing performed by : [facility], [address] [place] [address], [id number] T-SPOT.TB Positive Control Passed [facility] (MARY) Comment: Test Performed at: [facility], [facility] [address] [place] [address] ??[phone] ? TISH OVIEDO,PHD Testing performed by: [facility], [address] [place] [address], [id number] Blood 04/08/2024 10:4 1 AM RIBBON CUTTER 04/08/2024 2:22 PM RIBBON CUTTER Tim Robison MD LAB MICROBIOLOGY - GENER AL ORDERABLES Final Result [facility] (MARY) 1 [facility] Department [place] [address] * eGFR (04/08/2024 9:50 AM RIBBON CUTTER) eGFR 85 >=60 mL/min/1. 73 m2 Comment: Interpretive Data Reference Interval Normal ?>/= 90 mL/min/1.73m2 Mildly decreased* ? 60 - 89 mL/min/1.73m2 Mildly to moderately decreased ?45 - 59 mL/min/1.73m2 Moderately to severely decreased ??30 - 44 mL/min/1.73m2 Severely decreased ?15 - 29 mL/min/1.73m2 Kidney Failure ?< 15 ??mL/min/1.73m2 *Relative to young adult level Estimated glomerular filtration rate is determined by the 2020 CKD-EPI equation recommended by the National Kidney Foundation (A Unifying Approach to GFR Estimation: Recommendations of the NKF-ASK Task Force on Reassessing the Inclusion of Race in Diagnosing Kidney Disease, JASN 2020). The CKD-EPI equation should not be used for patients with unstable renal function and has not been validated in children and those over 70. Current interpretive data was last reviewed 2021. Testing performed by: [address] [address] Blood 04/08/2024 9:50 AM RIBBON CUTTER 04/08/2024 2:43 PM RIBBON CUTTER Tim Robison MD LAB BLOOD ORDERABLES Fin al Result [facility] ([facility]OD[facility]ISS) 1 [facility] Department [place] [address] * Differential, auto (04/08/2024 9:50 AM RIBBON CUTTER) Neutrophil abs 4.4 1.5 - 6.5 K/cumm Comment:Testing performed by : [facility], [address] [place] [address]., [id number] Imm gran abs 0.0 0.0 - 0.1 K/cumm [facility] (MARY) Comment:Testing performed by : [facility], [address] [place] [address]., [id number] Lymphocyte abs 1.8 0.8 - 3.3 K/cumm [facility] (MARY) Comment:Testing performed by : [facility], [address] [place] [address], [id number] Monocyte abs 0.5 0.2 - 0.8 K/cumm [facility] ([facility]) Comment:Testing performed by : [facility], [address] [place] [address]., [id number] Eosinophil abs 0.1 0.0 - 0.5 K/cumm [facility] (MARY) Comment:Testing performed by : [facility], [address] [place] [address]., [address] Basophil abs 0.0 0.0 - 0.1 K/cumm [facility] (MARY) Comment:Testing performed by : [facility], [address] [place] [address]., [address] Neutrophil pct 64.6 % [facility] (MARY) Comment: Interpretive Data Percent cell count reference ranges are not reported, since discordance with absolute values may lead to misinterpretation of CBC data. Current Interpretive Data was last revised on 2017. Testing performed by: [address] [address] Imm gran pct 0.4 % [facility] ([facility]) Comment: Interpretive Data Percent cell count reference ranges are not reported, since discordance with absolute values may lead to misinterpretation of CBC data. Current Interpretive Data was last revised on 2017. Testing performed by: [address] [address] Lymphocyte pct 25.7 % [facility] ([facility]) Comment: Interpretive Data Percent cell count reference ranges are not reported, since discordance with absolute values may lead to misinterpretation of CBC data. Current Interpretive Data was last revised on 2017. Testing performed by: [address] [address] Monocyte pct 7.9 % [facility] ([facility]) Comment: Interpretive Data Percent cell count reference ranges are not reported, since discordance with absolute values may lead to misinterpretation of CBC data. Current Interpretive Data was last revised on 2017. Testing performed by: [address] [address] Eosinophil pct 1.0 % [facility] ([facility]) Comment: Interpretive Data Percent cell count reference ranges are not reported, since discordance with absolute values may lead to misinterpretation of CBC data. Current Interpretive Data was last revised on 2017. Testing performed by: [facility], [address] [place] [address]., [address] Basophil pct 0.4 % [facility] ([facility]) Comment: Interpretive Data Percent cell count reference ranges are not reported, since discordance with absolute values may lead to misinterpretation of CBC data. Current Interpretive Data was last revised on 2017. Testing performed by: [facility], [address] [place] [address]., [id number] Blood 04/08/2024 9:50 AM RIBBON CUTTER 04/08/2024 2:22 PM RIBBON CUTTER us Tim Robison MD LAB BLOOD ORDERABLES Fin al Result [facility] ([facility]) 1 [facility] Department [place] [address] * (ABNORMAL) CBC with auto differential (04/08/2024 9:50 AM RIBBON CUTTER) WBC 6.8 3.8 - 9.9 K/cumm Comment:Testing performed by : [address] [address] Hgb 14.4 13.0 - 17.5 g/dL [facility] (MARY) Comment:Testing performed by : [address] [address] Hct 45.0 38.9 - 50.3 % [facility] ([facility]) Comment:Testing performed by : [address] [address] Plt 282 150 - 400 K/cumm [facility] (MARY) Comment:Testing performed by : [address] [address] MPV 10.1 9.1 - 12.3 fL [facility] ([facility]) Comment:Testing performed by : [address], [address] RBC 4.57 4.30 - 5.80 M/cumm [facility] (MARY) Comment:Testing performed by : [address], [address] MCV 98.5(H) 81.3 - 96.4 fL [facility] (MARY) Comment:Testing performed by : [facility], [address] [place] [address]., [address] MCH 31.5 27.1 - 33.3 pg [facility] (MARY) Comment:Testing performed by : [facility], [address] [place] [address]., [address] MCHC 32.0(L) 32.3 - 35.7 g/dL [facility] (MARY) Comment:Testing performed by : [facility], [address] [place] [address], [id number] RDW CV 13.6 11.1 - 14.9 % [facility] (MARY) Comment:Testing performed by : [facility], [address] [place] [address], [address] RDW SD 49.4(H) 35.7 - 48.1 fL [facility] (MARY) Comment:Testing performed by : [facility], [address] [place] [address], [address] NRBC abs 0.00 0.00 - 0.01 K/cumm [facility] (MARY) Comment:Testing performed by : [facility], [address] [place] [address], [id number] Blood 04/08/2024 9:50 AM RIBBON CUTTER 04/08/2024 2:22 PM RIBBON CUTTER Tim Robison MD LAB BLOOD ORDERABLES Fin al Result [facility] ([place]OD[facility]ISS) 1 [facility] Department [place] [address] * Hepatitis C antibody Blood (04/08/2024 9:50 AM RIBBON CUTTER) Hep C Ab Nonreactive Nonreactive Comment: Interpretive Data Nonreactive: Antibodies to HCV not detected. Does NOT exclude the possibility of recent exposure to HCV. Equivocal: Equivocal for HCV antibodies. Supplemental molecular testing will be automatically performed to determine infection status in accordance with current CDC screening recommendations. ?? Reactive: Positive for HCV antibodies. ??This may represent current or past HCV infection. Supplemental molecular testing will be automatically performed to determine ??current infection status in accordance with current CDC screening recommendations. Interpretive data was last revised on 2019. Testing performed by: [address] [address] Blood 04/08/2024 9:50 AM RIBBON CUTTER 04/08/2024 2:23 PM RIBBON CUTTER us Tim Robison MD LAB MICROBIOLOGY - GENER AL ORDERABLES Final Result [facility] (MARY) 1 [facility] Department [place] [address] * Hepatic function panel (04/08/2024 9:50 AM RIBBON CUTTER) Bilirubin, total 0.4 0.1 - 1.2 mg/dL Comment:Testing performed by : [address], [address] Bilirubin, direct 0.1 0.1 - 0.3 mg/dL [facility] ([facility]) Comment: Lipemia present. ??Results may be affected. Testing performed by: [address] [address] Protein, pl 7.6 6.5 - 8.5 g/dL [facility] ([facility]) Comment:Testing performed by : [address] [address] Albumin 4.5 3.5 - 5.0 g/dL [facility] ([facility]) Comment:Testing performed by : [address], [address] Alk phos 69 40 - 130 Units/L [facility] ([facility]) Comment:Testing performed by : [address] [address] ALT 24 7 - 55 Units/L [facility] ([facility]) Comment:Testing performed by : [address] [address] AST 34 10 - 50 Units/L [facility] (MARY) Comment:Testing performed by : [address], [address] Blood 04/08/2024 9:50 AM RIBBON CUTTER 04/08/2024 2:22 PM RIBBON CUTTER us Tim Robison MD LAB BLOOD ORDERABLES Fin al Result [facility] (MARY) 1 [facility] Department [place] [address] * (ABNORMAL) Lipid panel (04/08/2024 9:50 AM RIBBON CUTTER) Cholesterol 143 30 - 199 mg/dL Comment: Interpretive Data Ages < or = 19 years ??Acceptable: ? <170 mg/dL ??Borderline high: ??170-199 mg/dL ??High: ? >or= 200 mg/dL Ages > or = 20 years ??Desirable: ?<200 mg/dL ??Borderline high: ??200-239 mg/dL ??High: ? >or= 240 mg/dL Literature References: 1. Expert Panel on Integrated Guidelines for Cardiovascular Health and Risk Reduction in Children and Adolescents. Pediatrics 2011;128:S213 2. NCEP Expert Panel. Circulation 2004;110:227 Current Interpretive Data was last revised on 2018. Testing performed by: [facility], [address] [place] [address]., [address] Triglycerides 159(H) <=149 mg/dL [facility] (MARY) Comment: Interpretive Data Ages < or = 9 years ??Acceptable: ? <75 mg/dL ??Borderline high: ??75-99 mg/dL ??High: ? >or= 100 mg/dL Ages 10 to 20 years ??Acceptable: ? <90 mg/dL ??Borderline high: ??90-129 mg/dL ??High: ? >or= 130 mg/dL Ages > or = 20 years ??Desirable: ?<150 mg/dL ??Borderline high: ??150-199 mg/dL ??High: ? 200-499 mg/dL ?Very high: ?? >or= 499 mg/dL Literature References: 1. Expert Panel on Integrated Guidelines for Cardiovascular Health and Risk Reduction in Children and Adolescents. Pediatrics 2011;128:S213 2. NCEP Expert Panel. Circulation 2004;110:227 Current Interpretive Data was last revised on 2018. Testing performed by: [facility], [address] [place] [address]., [address] HDL 34(L) >=40 mg/dL [facility] (MARY) Comment: Interpretive Data Ages < or = 19 years ??Acceptable: ? >45 mg/dL ??Borderline low: ?? 40-45 mg/dL ??Low: ? <40 mg/dL Ages > or = 20 years ??Desirable: ?>or= 60 mg/dL ??Low: ? <40 mg/dL Literature References: 1. Expert Panel on Integrated Guidelines for Cardiovascular Health and Risk Reduction in Children and Adolescents. Pediatrics 2011;128:S213 2. NCEP Expert Panel. Circulation 2004;110:227 Current Interpretive Data was last revised on 2018. Testing performed by: [facility], [address] [place] [address]., [address] LDL, calculated 81 <=129 mg/dL [facility] (MARY) Comment: Interpretive Data Ages < or = 19 years ??Acceptable: ? <110 mg/dL ??Borderline high: ??110-129 mg/dL ??High: ?>or= 130 mg/dL Ages > or = 20 years ??Optimal: ? <100 mg/dL ??Near optimal: ?100-129 mg/dL ??Borderline high: ?? 130-159 mg/dL ??High: ?>160 mg/dL Calculated using the Padilla LDL-C estimating equation. This equation was implemented on 2024. Prior to this date LDL-C was estimated using the Friedewald equation. Literature References: 1. Expert Panel on Integrated Guidelines for Cardiovascular Health and Risk Reduction in Children and Adolescents. Pediatrics 2011;128:S213 2. NCEP Expert Panel. Circulation 2004;110:227 3. Randy Hernandez et al. GARCIA Cardiol. 2020 September 30;5(5):540-548. doi: 10.1001/jamacardio.2020.0013 Current Interpretive Data was last revised on 2024. Testing performed by: [address] [address] Non-HDL Cholesterol 109 mg/dL [facility] (MARY) Comment: Interpretive Data Ages < or = 19 years ??Acceptable: ?<120 mg/dL ??Borderline high: ??120-144 mg/dL ??High: ?>145 mg/dL Ages > or = 20 years ??When triglycerides are >200 mg/dL, Non-HDL cholesterol is a secondary target of ? therapy with treatment goals that are 30 mg/dL greater than the LDL cholesterol target. ? Literature References: 1. Expert Panel on Integrated Guidelines for Cardiovascular Health and Risk Reduction in Children and Adolescents. Pediatrics 2011;128:S213 2. NCEP Expert Panel. Circulation 2004;110:227 Current Interpretive Data was last revised on 2018. Testing performed by: [address] [address] Chol/HDL ratio 4 [facility] (MARY) Comment:Testing performed by : [address] [address] Blood 04/08/2024 9:50 AM RIBBON CUTTER 04/08/2024 2:22 PM RIBBON CUTTER us Tim Robison MD LAB BLOOD ORDERABLES Fin al Result [facility] (MARY) 1 [facility] Department [place] [address] * Basic metabolic panel (04/08/2024 9:50 AM RIBBON CUTTER) [facility] Signature Sodium 136 135 - 145 mmol/L Comment:Testing performed by : [address] [place] [address] Potassium, pl 4.3 3.3 - 4.9 mmol/L [facility] ([facility]) Comment:Testing performed by : [facility], [address] [place] [address]., [address] Chloride 101 97 - 110 mmol/L [facility] ([facility]) Comment:Testing performed by : [facility], [address] [place] [address], [address] CO2 24 22 - 32 mmol/L [facility] (MARY) Comment:Testing performed by : [facility], [address] [place] [address], [address] Anion gap 11 2 - 15 mmol/L [facility] ([facility]) Comment:Testing performed by : [facility], [address] [place] [address], [address] BUN 20 6 - 25 mg/dL [facility] ([facility]) Comment:Testing performed by : [facility], [address] [place] [address], [address] Creatinine 0.93 0.80 - 1.30 mg/dL [facility] ([facility]) Comment:Testing performed by : [facility], [address] [place] [address], [address] Glucose 94 70 - 199 mg/dL [facility] ([facility]) Comment: Interpretive Data Fasting glucose >/= 126 mg/dl is diagnostic for diabetes. ?? Fasting is defined as no caloric intake for at least 8 hours. Fasting glucose between 100 mg/dl to 125 mg/dl is diagnostic of prediabetes. In a patient with classic symptoms of hyperglycemia or hyperglycemic crisis, a random glucose >/= 200 mg/dl is diagnostic for diabetes. In the absence of unequivocal hyperglycemia, results should be confirmed by repeat testing. The classification and Diagnosis of Diabetes Diabetes Care 202; 46: S19-S40. Current interpretive data was last revised 2022. Testing performed by: [facility], [address] [place] [address]., [id number] Calcium 9.4 8.5 - 10.3 mg/dL [facility] ([facility]) Comment:Testing performed by : [address], [address] Blood 04/08/2024 9:50 AM RIBBON CUTTER 04/08/2024 2:22 PM RIBBON CUTTER us Tim Robison MD LAB BLOOD ORDERABLES Fin al Result [facility] ARE[facility] RHODHISS) 8 [facility] Department [place] [address] * CT Lung Cancer Screening (07/10/2023 10:25 AM RIBBON CUTTER) Anatomical Region Laterality Modality Chest N/A Computed Tomogra phy 07/10/2023 11:1 7 AM RIBBON CUTTER Impressions 07/10/2023 11:17 AM RIBBON CUTTER 1. ??Lung RADS Category 1 (negative) S. ??Recommend Low dose Screening CT of chest in 12 months. 2. ??Multivessel moderate to marked coronary artery calcification. Lung RADS Categories: 1 - Negative (no nodules, or only benign calcified or fat-containing nodules) 2 - Benign Appearance or Behavior (nodules with very low likelihood of becoming a clinically active cancer due to size or lack of growth) 3 - Probably Benign (probably benign findings-short term follow up suggested; includes nodules with a low likelihood of becoming a clinically active cancer) 4A,4B,4X - Suspicious (category 3 or 4 nodules with findings for which additional diagnostic testing and/or tissue sampling is recommended) S - Other (clinically significant or potentially clinically significant findings (non-lung cancer) C - Prior Lung Cancer (modifier for patients with a prior diagnosis of lung cancer who return to screening) Electronically signed by: Gladys Langford M.D. Narrative 07/10/2023 11:17 AM RIBBON CUTTER EXAMINATION: ??Lung cancer screening CT of the Chest without intravenous contrast HISTORY: Lung Cancer Screening TECHNIQUE: ??Low radiation dose chest protocol. No intravenous contrast. Reconstructed slice width 1.[address] Dose Index 2.29 mGy. Dose-length product 124 mGy-cm. COMPARISON: CT lung cancer screening 07/05/2022. FINDINGS: ?? Lung nodules or findings of lung cancer: A calcified right upper lobe granuloma is present. No pulmonary nodule is otherwise seen.. Smoking related lung disease: None. Other findings: Normal heart size is seen without pericardial effusion. Nonaneurysmal aorta with mild to moderate calcified plaque is present. There is moderate to marked multivessel coronary artery calcification. No mediastinal lymphadenopathy is seen. Procedure Note Gladys Langford MD - 07/10/2023 EXAMINATION: Lung cancer screening CT of the Chest without intravenous contrast HISTORY: Lung Cancer Screening TECHNIQUE: Low radiation dose chest protocol. No intravenous contrast. Reconstructed slice width 1.[address] Dose Index 2.29 mGy. Dose-length product 124 mGy-cm. COMPARISON: CT lung cancer screening 07/05/2022. FINDINGS: Lung nodules or findings of lung cancer: A calcified right upper lobe granuloma is present. No pulmonary nodule is otherwise seen.. Smoking related lung disease: None. Other findings: Normal heart size is seen without pericardial effusion. Nonaneurysmal aorta with mild to moderate calcified plaque is present. There is moderate to marked multivessel coronary artery calcification. No mediastinal lymphadenopathy is seen. IMPRESSION: 1. Lung RADS Category 1 (negative) S. Recommend Low dose Screening CT of chest in 12 months. 2. Multivessel moderate to marked coronary artery calcification. Lung RADS Categories: 1 - Negative (no nodules, or only benign calcified or fat-containing nodules) 2 - Benign Appearance or Behavior (nodules with very low likelihood of becoming a clinically active cancer due to size or lack of growth) 3 - Probably Benign (probably benign findings-short term follow up suggested; includes nodules with a low likelihood of becoming a clinically active cancer) 4A,4B,4X - Suspicious (category 3 or 4 nodules with findings for which additional diagnostic testing and/or tissue sampling is recommended) S - Other (clinically significant or potentially clinically significant findings (non-lung cancer) C - Prior Lung Cancer (modifier for patients with a prior diagnosis of lung cancer who return to screening) Electronically signed by: Gladys Langford M.D. Stanley Hurtado MD [facility] CT PROCEDURES Final Result * CT Abdomen Pelvis W Contrast (05/15/2018 8:53 AM RIBBON CUTTER) Anatomical Region Laterality Modality Body N/A Computed Tomogra phy 05/15/2018 8:55 AM RIBBON CUTTER Impressions 05/15/2018 8:58 AM RIBBON CUTTER 1. ??Fat-containing right inguinal hernia. 2. ??Bosniak 1 bilateral renal cysts. 3. ??Diverticulosis. Electronically signed by: Ahsan Ozuna M.D. Narrative 05/15/2018 8:58 AM RIBBON CUTTER EXAM: CT ABDOMEN PELVIS W CONTRAST HISTORY: Unilateral inguinal hernia, without obstruction or gangrene, recurrent COMPARISON: 12/09/2016 TECHNIQUE: Following administration of axial images of the abdomen and pelvis were obtained. Sagittal and coronal ??reconstructions were performed. FINDINGS: Abdomen: Views through the lung bases reveal no acute pulmonary findings. ??A 2 cm Bosniak 1 right renal cyst is noted. ??A 1.4 cm Bosniak 1 left renal cyst is noted. ??Bilateral perinephric fat stranding is likely age-related. ??The liver, gallbladder, spleen, pancreas, and adrenal glands are normal. ??The large and small bowel appear overall normal in caliber and configuration. ??Scattered sigmoid diverticula are seen without evidence of acute diverticulitis noted. ??No free intraperitoneal air or obstruction is seen. ??The abdominal aorta appears overall normal in course and caliber. ??No significant mesenteric or retroperitoneal lymphadenopathy is noted. Pelvis: The urinary bladder is unremarkable. ??The pelvic viscera are normal. ??No free pelvic fluid is seen. ??No pelvic or lymphadenopathy is noted. ??A fat-containing right inguinal hernia is again noted. Procedure Note Ahsan Ozuna MD - 05/15/2018 EXAM: CT ABDOMEN PELVIS W CONTRAST HISTORY: Unilateral inguinal hernia, without obstruction or gangrene, recurrent COMPARISON: 12/09/2016 TECHNIQUE: Following administration of axial images of the abdomen and pelvis were obtained. Sagittal and coronal reconstructions were performed. FINDINGS: Abdomen: Views through the lung bases reveal no acute pulmonary findings. A 2 cm Bosniak 1 right renal cyst is noted. A 1.4 cm Bosniak 1 left renal cyst is noted. Bilateral perinephric fat stranding is likely age-related. The liver, gallbladder, spleen, pancreas, and adrenal glands are normal. The large and small bowel appear overall normal in caliber and configuration. Scattered sigmoid diverticula are seen without evidence of acute diverticulitis noted. No free intraperitoneal air or obstruction is seen. The abdominal aorta appears overall normal in course and caliber. No significant mesenteric or retroperitoneal lymphadenopathy is noted. Pelvis: The urinary bladder is unremarkable. The pelvic viscera are normal. No free pelvic fluid is seen. No pelvic or lymphadenopathy is noted. A fat-containing right inguinal hernia is again noted. IMPRESSION: 1. Fat-containing right inguinal hernia. 2. Bosniak 1 bilateral renal cysts. 3. Diverticulosis. Electronically signed by: Ahsan Ozuna M.D. Karen Eyers DENTAL INSURANCE BILLER IMG CT PROCEDURES Final Result * COLONOSCOPY (07/02/2016 12:00 AM RIBBON CUTTER) Anatomical Region Laterality Modality Other Narrative 07/02/2016 12:00 AM RIBBON CUTTER Ordered by an unspecified provider. Procedure Note ProviderDonis MD - 07/02/2016 12:00 AM CST PROCEDURE REPORT Patient: JOSE EM Service Date: 07/02/2016 Account: [id number] Room No: : 1945 Patient Type: [facility] Attend.: Taurus Bentley M.D. Admit Date: 07/02/2016 Dict.: Taurus Bentley M.D. Disch. Date: 07/02/2016 SURGEON Taurus Bentley MD COLONOSCOPY HISTORY A 70-year-old male presents for screening . PHYSICAL EXAM Obese gentleman. Lungs: Clear. Cardiovascular Exam: Unremarkable. PROCEDURE Colonoscopy was performed with the Olympus video endoscope. Patient was premedicated by Anesthesia. On digital exam, there are grade 3hemorrhoids. We inserted the endoscope and advanced it to the cecum. Colonic prepwas adequate. We carefully searched the mucosa on withdrawal, could find no evidence of inflammation or neoplasia anywhere through the length of the bowel. Patient tolerated procedure without difficulty. POSTOPERATIVE DIAGNOSIS Hemorrhoidal disease, otherwise normal. PLAN Surveillance 10 years. Electronically Authenticated and Edited by: Taurus Bentley MD On 07/04/2016 10:15 AM RIBBON CUTTER Taurus Bentley M.D. DR/karin TD: 07/02/2016 14:02 CC: Tanmay Mac M.D. Historical Provider ENDOSCOPY PROCEDURES Eliane l Result from Last 3 Months or Most Recently Relevant to Health Maintenance Insurance MEDICARE SOLUTIONS [place] [id number] MEDICARE SOLUTIONS MEDICARE SOLUTIONS Advance Directives For more information, please contact: [phone] * Full Code (Latest Code Status on File) Date Activated Date Inactivated Comments 11/28/2019 5:53 AM 12/02/2019 7:50 PM * Full Code Date Activated Date Inactivated Comments 03/25/2019 11:25 PM 03/27/2019 4:59 PM Care Teams Dress Shoe Inspector Relationship Specialty Start Date End Date Tanmay Mac MD [address] [place] [address] PCP - General 08/30/16 Roger De MD [address] [place] [address] Consulting Physician Cardiovascular Disease 03/27/19 Jose Joyce MD [address] [place] [address] Consulting Physician Urology 12/02/19 [place] [id number] [address] Referring Physician Pulmonary Disease 07/26/22
--- OUTSIDE RECORDS SUMMARY | 2024-06-25 03:25 | XMS_ITS ---
Author Organization [facility] Address [address] [place] [address] Care Team Providers Care Construction Scheduler Name Role Phone Tanmay Mac MD Primary Care Provider [phone] Roger De MD Unavailable [phone] Jose Joyce MD Unavailable [phone] Stanley Hurtado MD Unavailable [phone] Active Problems Problem Noted Date Diagnosed Date RLS (restless legs syndrome) 06/21/2024 Assessment & Plan (06/21/2024 9:11 AM FORMING DEPARTMENT END FINDER): WIll switch from ropinirole to mirapex and will follwor esponse. Spinal stenosis of lumbar re gion with neurogenic claudication 06/21/2024 Assessment & Plan (06/21/2024 9:12 AM FORMING DEPARTMENT END FINDER): Refer for MRI. Pain radiating into the lower extremities. Does much better leaning forward with extended walking. Script given for rollator walker. Dyspepsia 06/21/2024 Assessment & Plan (06/21/2024 9:13 AM FORMING DEPARTMENT END FINDER): NO evidence of an acute abdomen. No prior EGD. M Most likely body habitus related and while travelling. Stop iron supplemetnation. WIll montiro respnose. Check ultrasound for biliary pathology. Nicotine dependence with current use 04/07/2024 Assessment & Plan (04/07/2024 11:47 AM FORMING DEPARTMENT END FINDER): Encouraged cutting back. Hospital discharge follow-up 04/07/2024 Assessment & Plan (04/07/2024 11:46 AM FORMING DEPARTMENT END FINDER): IMahsa, ARCHITECTURAL DRAFTING INSTRUCTOR have personally reviewed pertinent inpatient and/or ED records, including discharge medications and [employer] if applicable. This patient's discharge medication list has been reviewed and reconciled with his outpatient medication list and has also been reviewed with patient and/or caregiver. I have noted any changes. BMI 37.0-37.9, adult 02/09/2024 Assessment & Plan (06/21/2024 9:11 AM FORMING DEPARTMENT END FINDER): ENcourage 150min/week aerobic exericse. Follow response. Assessment & Plan (02/09/2024 9:58 AM CDT): Encoruage 150min/week aerobic exericse. Healthy food chocies. Severe obesity (BMI 35.0-39.9) with comorbidity 02/09/2024 Assessment & Plan (06/21/2024 9:11 AM FORMING DEPARTMENT END FINDER): Encourage 150min/weeka erobic exercise. WIll follow response. [...] it. Assessment & Plan (06/21/2024 9:11 AM FORMING DEPARTMENT END FINDER): Contiues on metoprolol XL and apixaban. WIll follow response. Assessment & Plan (04/07/2024 11:48 AM FORMING DEPARTMENT END FINDER): Rate controlled. Continue metoprolol, eliquis. Continue f/u [...] 08/01/2020 Assessment & Plan (08/01/2020 10:41 AM FORMING DEPARTMENT END FINDER): Reviewed need to lose weight, reviewed health benefits. Reviewed recommendations for daily intake & activity 20-30 minutes/day. Discussed healthy diet and importance of regular physical activity. Centrilobular emphysema 07/18/2020 Assessment & Plan (04/07/2024 2:54 PM FORMING DEPARTMENT END FINDER): No recent exacerbations. Highly encouraged to continue cutting back tobacco. We will also avoid nicotine gum. Red flags reviewed. Assessment & Plan (08/01/2020 10:42 AM FORMING DEPARTMENT END FINDER): COPD remains stable. [facility] (Dr Mohamud). Discussed monitoring symptoms and use of quick-relief medications; to contact us early in course of exacerbation. Warning signs of respiratory distress were reviewed with Jarek Em. Will continue current treatment at this time. Encounter for Medicare annual wellness exam 07/03 Assessment & Plan (08/01/2020 10:42 AM FORMING DEPARTMENT END FINDER): 1. Eat a healthy diet: focus on lean meats and proteins, more fruits, vegetables and whole grains and low in sugars and fats. Limit red meat and avoid processed meat. 2. Maintain a healthy weight; avoid being overweight. Aim for a normal body mass index (BMI) of 18.5-24.9. Help learning to eat healthier, we can set up appointment with choir accompanist/tile fitter. 3. Have an active lifestyle, strive for [...] 05/10/2020 Assessment & Plan (06/21/2024 9:10 AM FORMING DEPARTMENT END FINDER): Continue annual f/u with urology. No recurrent hematuria or other abonralities. Assessment & Plan (02/09/2024 9:57 AM CDT): Continue f/u with Dr. Barclay. No evidence fo recurrence. Assessment & Plan (08/01/2020 10:44 AM FORMING DEPARTMENT END FINDER): Managed by Dr Joyce. Completed BCG 05/2020. Enlarged prostate 12/10/2019 Overview (12/10/2019): Added automatically from request for surgery [id number] Gross hematuria 12/01/2019 Bladder mass 11/26/2019 Overview (11/26/2019): Added automatically from request for surgery [id number] Hematuria 07/13/2019 Abnormal glucose 04/19/2019 Assessment & [...] 03/26/2019 Assessment & Plan (08/01/2020 10:43 AM FORMING DEPARTMENT END FINDER): The blood pressure is under good control. [...] here. Assessment & Plan (08/08/2022 2:33 PM FORMING DEPARTMENT END FINDER): We discussed LDL cholesterol goal of less than 70 mg/dL. He has been at goal since 2020. No change in medical regimen here. Assessment & Plan (12/28/2020 8:32 AM CDT): Patient's LDL cholesterol in July was 63. I suggested he continue to work on weight management. Assessment & Plan (08/01/2020 10:40 AM FORMING DEPARTMENT END FINDER): 06/17/19 GU=370 HDL=39 VC=236 LDL=45 TC/HDL=3.0 08/01/20 IK=693 HDL=36 RH=232 LDL=63 TC/HDL=3.6 Atorvastatin 40mg daily. Needs to [...] flags. Assessment & Plan (06/27/2020 10:28 AM FORMING DEPARTMENT END FINDER): Patient's LDL cholesterol previously was 45 but [...] medical regimen. Coronary artery disease invo lving [place] coronary artery of [place] heart without angina pectoris 03/26/2019 Overview (08/08/2022): Status post ARETHA to mid LAD and ARETHA to mid RCA on 26 March 2019 (RL). Normal Cardiolite on 05 July 2020. LVEF of 69%. Assessment & Plan (06/21/2024 9:10 AM FORMING DEPARTMENT END FINDER): Seconddary prevneiton. Continues on asa and statin [...] joking. Assessment & Plan (08/08/2022 2:33 PM FORMING DEPARTMENT END FINDER): We discussed cardiac catheterization and interventional result [...] modification. Assessment & Plan (08/01/2020 10:42 AM FORMING DEPARTMENT END FINDER): Managed by Dr Wallace at [facility] Assessment & Plan (06/27/2020 10:29 AM FORMING DEPARTMENT END FINDER): Patient's episode of chest discomfort may represent [...] 05/07/2018 Assessment & Plan (05/07/2018 2:15 PM FORMING DEPARTMENT END FINDER): Will obtain CT abdomen and pelvis for surgical planning due to previous hernia repair with mesh. Keratosis, senilis 02/26/2017 Lumbar radiculopathy 01/14/2017 Psoriasis 05/22/2016 Assessment & Plan (06/21/2024 9:10 AM FORMING DEPARTMENT END FINDER): Referral to dermatology for second opinion. Prior regional safety manager tried to prescribe skyrizi but copay was not feasible. Continues on gold valdivia psoriasis therapy. Assessment & Plan (02/09/2024 9:57 AM CDT): Trial of triamcinolone sent to pharmacy. No s/s of secondary bacterial infection. Eczema 05/22/2016 Cyst of breast 09/27/2015 Overview (09/05/2016): Breast cyst SVT (supraventricular tachycardia) ([facility]) Overview (08/08/2022): Status post ablation of AVNRT and atrial flutter on 23 February 2015 (DG). Assessment & Plan (03/23/2024 12:24 PM CDT): We discussed ablation procedure from 9 years ago. Assessment & Plan (02/09/2024 9:56 AM CDT): Contniues f/u with Cardiology. Montioring for presence of afib. Assessment & Plan [...] sinus. Assessment & Plan (08/08/2022 2:36 PM FORMING DEPARTMENT END FINDER): Patient could not remember the location or the physician so we had to dig it up. Ever since the ablation, he has not had any palpitations. Obstructive sleep apnea syndrome 01/17/2014 Overview (09/05/2016): Obstructive sleep apnea Assessment & Plan (02/09/2024 9:56 AM CDT): Reviewed import of nightly CPAP. WIll follow respnose. Decreased fatigue and will montior resopnse. Assessment & Plan (08/01/2020 10:44 AM FORMING DEPARTMENT END FINDER): Reports 100% compliance w/CPAP. Hypothyroidism 01/17/2014 Overview (09/05/2016): Hypothyroidism Assessment & Plan (02/09/2024 9:57 AM CDT): Clinicaly and chemically euthryoid. No change at the present time. Assessment & Plan (08/01/2020 10:50 AM FORMING DEPARTMENT END FINDER): TSH/T4 ordered; will contact with results when received. Reviewed med SE & scheduling. Reviewed sxs hypo/hyperthyroidism. No changes at this time. Has not had TFTs checked since 2018. Current Oncology Plans No current plan information found. Past Plans No past plan information found. Radiation Treatments * No radiation treatments are documented for this patient in [facility]. Treatments may have been administered in another system. Lifetime Dose Tracking * Chemical Lifetime Dose Automatic Entry Manual Entr y DLP 356 mGycm 356 mGycm 0 mGycm CTDIvol 9.02 mGy 9.02 mGy 0 mGy Resolved Problems Problem Noted Date Diagnosed Date Resolved Date BMI 36.0-36.9,adult 08/01/2020 08/02/19 21 Urine troubles 07/13/2019 07/18/2020 Severe obesity (BMI 35.0-39. 9) with comorbidity 07/02/2019 07/18/2020 Smokeless tobacco use 03/26/20192020 Right testicular pain 05/07/20182020 Assessment & Plan (05/07/2018 2:16 PM FORMING DEPARTMENT END FINDER): Ct will also evaluate for any abnormality, [...]
--- OUTSIDE RECORDS SUMMARY | 2024-06-25 03:25 | XMS_ITS | Clinical Summary ---
Author Organization [facility] Address [address] [place] [address] Phone Care Team Providers Care Shop Laborer Name Role Phone Unavailable Unavailable Unavailable Reason for Visit and Chief Complaint NEW PATIENT VISIT Plan of Treatment No Plan of [...] Date Check-In Time Check- Out Time Diagnosis NEW PATIENT VISIT [facility] 7 10:45AM 11:59PM Clinical Notes Includes: Clinical Notes from this encounter No Clinical Notes Recorded
--- OUTSIDE RECORDS SUMMARY | 2024-06-25 03:25 | XMS_ITS | CONTINUITY OF CARE DOCUMENT ---
Author Name ryan davis Address Unknown Organization [facility] Office Address [address] [place] [address] Phone [phone] Care Team Providers Care Student Life Dean Name Role Phone Nahum Huffman DO Unavailable CAROLYNE MCARTHUR, IVELISSE Cazares Unavailable [phone] ADILENE BRAGA MD Unavailable [phone] PROBLEMS Condition Status Date Provider Notes Sleep apnea, obstructive; on CPAP active Alyssa Barrios RN SVT, recurrent/refractory active Catherine Barrios RN Atrial flutter active Nahum Huffman DO ENCOUNTERS Date Type Provider Location Encounter Diagnosis - In-person encounter Office Visit Nahum Huffman DO [facility] Office Atrial flutter VITAL SIGNS Date Observation Value Provider blood pressure, diastolic 90 mm[Hg] Alyssa Gaviria blood pressure, systolic 150 mm[Hg] Jasmina Gaviria pulse rate 86 /min Cortney Gaviria oxygen saturation, oximetry 98 % Cortney Gaviria respiratory rate E&M 16 /min Cortney Gaviria Body Mass Index (Ratio) 35.01 kg/m2 Curt Gaviria weight E&M 244 [lb_av] Cortney Gaviria height E&M 70 [in_i] Cortney Gaviria ALLERGIES No Known Drug Allergies HISTORY OF MEDICATION USE Medication Status Instructions Dates Provider Indications Com ments TYLENOL PM EXTRA STRENGTH active once daily 2 Cortney [place] [facility] MELATONIN 5 MG ORAL TABLET active once daily 8 Milly [place] [facility] IRON 325 (65 Fe) MG ORAL TABLET completed once daily 8 - 2 Cortney [place] CYMBALTA 30 MG ORAL CAPSULE DELAYED RELEASE PARTICLES active once daily 8 Milly Chávez CARTIA XT 180 MG ORAL CAPSULE EXTENDED RELEASE 24 HOUR completed once daily 8 - 2 Cortney Gaviria METOPROLOL SUCCINATE ER 25 MG ORAL TABLET EXTENDED RELEASE 24 HOUR active once daily 8 Milly [place] LEVOTHYROXINE SODIUM 150 MCG ORAL TABLET active ONE TAB. DAILY 8 Milly Chávez SOCIAL HISTORY Date Observation Value Provider social history E&M S moking History: Nick beauchamp is a former smoker. Nahum Huffman DO social history reviewed E&M i ewed - no changes required Nahum Huffman DO chewing tobacco use Current Cortney Zamora cigarette use yes Cortney Gaviria smoking status Former smoker Cortney Zapata l FAMILY HISTORY Family Member Condition Father Family History of Co ronary Artery Disease: Mother Family History of Co ronary Artery Disease: INSURANCE PROVIDERS Payer name Policy type / Coverage type [place] [employer] party ID [employer] MEDICARE COMPLETE HMO Other [id number] TREATMENT PLAN Date Name Performer Cardiology/EP:s/p AV NRT & Atrial FLultter ablation 02/23/15 Nahum Huffman DO Cardiology/EP:s/p AV NRT & Atrial Flultter ablation 02/23/15 n o recurrences Nahum Huffman DO Cardiology/EP:compliant with use Nahum Huffman DO Cardiology/EP Nahum Huffman DO HISTORY OF PROCEDURES Procedure Date Procedure Name Provider Procedure Notes S tatus SNOMED-CT: 239509521 Smoking Cessation Counseling Nahum Huffman DO completed EKG Nahum Huffman DO comple johnny SNOMED-CT: 967804068 [id number] Current Medications Documented Nahum Huffman DO completed
--- OUTSIDE RECORDS SUMMARY | 2024-06-25 03:25 | XMS_ITS | Referral Summary ---
Author Organization [facility] Address [address] [place] [address] Care Team Providers Care Crester Name Role Phone Tanmay Mac MD Primary Care Provider [phone] Roger De MD Unavailable [phone] Jose Joyce MD Unavailable [phone] Stanley Hurtado MD Unavailable [phone] Encounters Date Type Department Care Team Description 06/21/2024 8:30 AM INTERNATIONAL REPRESENTATIVE Office Visit [facility] [address] [address] Tanmay Mac MD Dyspepsia (Primary Dx); Spinal stenosis of lumbar region with neurogenic claudication; Coronary artery disease involving [place] coronary artery of [place] heart without angina pectoris; Malignant neoplasm of urinary bladder, unspecified site (HCC); Paroxysmal atrial fibrillation (CMS/HCC) (HCC); RLS (restless legs syndrome); BMI 37.0-37.9, adult; Severe obesity (BMI 35.0-39.9) with comorbidity (HCC); Psoriasis 06/16/2024 Nurse Triage [facility] [address] [address] Tanmay Mac MD 05/02/2024 [facility] Care Organization [address] [place] [address] Phuong Valdivia MA 04/20/2024 ACO Quality [facility] Accountable Care Organization [address] [place] [address] Maude Edouard CMA 04/08/2024 9:50 AM INTERNATIONAL REPRESENTATIVE Lab [facility] Laboratory [address] [place] [address] 04/07/2024 11:30 AM INTERNATIONAL REPRESENTATIVE Office Visit [facility] [place] [address] [place] [address] Mahsa Bunn NP Paroxysmal atrial fibrillation (CMS/HCC) (HCC) (Primary Dx); Centrilobular emphysema (HCC); Nicotine dependence with current use; Hospital discharge follow-up; Class 2 severe obesity due to excess calories with serious comorbidity and body mass index (BMI) of 39.0 to 39.9 in adult (HCC) from Last 3 Months Allergies Active Allergy Reactions Criticality Noted Date Comments Duloxetine Diarrhea,Other (See comments) Low 02/05/2023 Blood Pressure increase Medications melatonin 5 mg tablet Take 1 tablet (5 mg total) by mouth nightly Active aspirin 81 mg enteric coated tablet Take 1 tablet (81 mg total) by mouth daily 30 tablet 0 Active jtxcavoh-gpy-L F-gcupnpw-plor in 0.4-300-250 mg-mcg-mcg tabletIndicati ons:Vitamin Deficiency Prevention [...] 06/21/2024 Assessment & Plan (06/21/2024 9:11 AM INTERNATIONAL REPRESENTATIVE): WIll switch from ropinirole to mirapex and will follwor esponse. Spinal stenosis of lumbar re gion with neurogenic claudication 06/21/2024 Assessment & Plan (06/21/2024 9:12 AM INTERNATIONAL REPRESENTATIVE): Refer for MRI. Pain radiating into the lower extremities. Does much better leaning forward with extended walking. Script given for rollator walker. Dyspepsia 06/21/2024 Assessment & Plan (06/21/2024 9:13 AM INTERNATIONAL REPRESENTATIVE): NO evidence of an acute abdomen. No prior EGD. M Most likely body habitus related and while travelling. Stop iron supplemetnation. WIll montiro respnose. Check ultrasound for biliary pathology. Nicotine dependence with current use 04/07/2024 Assessment & Plan (04/07/2024 11:47 AM INTERNATIONAL REPRESENTATIVE): Encouraged cutting back. Hospital discharge follow-up 04/07/2024 Assessment & Plan (04/07/2024 11:46 AM INTERNATIONAL REPRESENTATIVE): [facility] have personally reviewed pertinent inpatient and/or ED records, including discharge medications and Clindesk if applicable. This patient's discharge medication list has been reviewed and reconciled with his outpatient medication list and has also been reviewed with patient and/or caregiver. I have noted any changes. BMI 37.0-37.9, adult 02/09/2024 Assessment & Plan (06/21/2024 9:11 AM INTERNATIONAL REPRESENTATIVE): ENcourage 150min/week aerobic exericse. Follow response. Assessment & Plan (02/09/2024 9:58 AM CDT): Encoruage 150min/week aerobic exericse. Healthy food chocies. Severe obesity (BMI 35.0-39.9) with comorbidity 02/09/2024 Assessment & Plan (06/21/2024 9:11 AM INTERNATIONAL REPRESENTATIVE): Encourage 150min/weeka erobic exercise. WIll follow response. [...] it. Assessment & Plan (06/21/2024 9:11 AM INTERNATIONAL REPRESENTATIVE): Contiues on metoprolol XL and apixaban. WIll follow response. Assessment & Plan (04/07/2024 11:48 AM INTERNATIONAL REPRESENTATIVE): Rate controlled. Continue metoprolol, eliquis. Continue f/u [...] 08/01/2020 Assessment & Plan (08/01/2020 10:41 AM INTERNATIONAL REPRESENTATIVE): Reviewed need to lose weight, reviewed health benefits. Reviewed recommendations for daily intake & activity 20-30 minutes/day. Discussed healthy diet and importance of regular physical activity. Centrilobular emphysema 07/18/2020 Assessment & Plan (04/07/2024 2:54 PM INTERNATIONAL REPRESENTATIVE): No recent exacerbations. Highly encouraged to continue cutting back tobacco. We will also avoid nicotine gum. Red flags reviewed. Assessment & Plan (08/01/2020 10:42 AM INTERNATIONAL REPRESENTATIVE): COPD remains stable. [facility] (Dr Mohamud). Discussed monitoring symptoms and use of quick-relief medications; to contact us early in course of exacerbation. Warning signs of respiratory distress were reviewed with Jose Em. Will continue current treatment at this time. Encounter for Medicare annual wellness exam 07/03 Assessment & Plan (08/01/2020 10:42 AM INTERNATIONAL REPRESENTATIVE): 1. Eat a healthy diet: focus on lean meats and proteins, more fruits, vegetables and whole grains and low in sugars and fats. Limit red meat and avoid processed meat. 2. Maintain a healthy weight; avoid being overweight. Aim for a normal body mass index (BMI) of 18.5-24.9. Help learning to eat healthier, we can set up appointment with bass string winder/spooler. 3. Have an active lifestyle, strive for [...] 05/10/2020 Assessment & Plan (06/21/2024 9:10 AM INTERNATIONAL REPRESENTATIVE): Continue annual f/u with urology. No recurrent hematuria or other abonralities. Assessment & Plan (02/09/2024 9:57 AM CDT): Continue f/u with Dr. Barclay. No evidence fo recurrence. Assessment & Plan (08/01/2020 10:44 AM INTERNATIONAL REPRESENTATIVE): Managed by Dr Joyce. Completed BCG 05/2020. Enlarged prostate 12/10/2019 Overview (12/10/2019): Added automatically from request for surgery [id number] Gross hematuria 12/01/2019 Bladder mass 11/26/2019 Overview (11/26/2019): Added automatically from request for surgery [id number] Hematuria 07/13/2019 Abnormal glucose 04/19/2019 Assessment & [...] 03/26/2019 Assessment & Plan (08/01/2020 10:43 AM INTERNATIONAL REPRESENTATIVE): The blood pressure is under good control. [...] here. Assessment & Plan (08/08/2022 2:33 PM INTERNATIONAL REPRESENTATIVE): We discussed LDL cholesterol goal of less than 70 mg/dL. He has been at goal since 2020. No change in medical regimen here. Assessment & Plan (12/28/2020 8:32 AM CDT): Patient's LDL cholesterol in July was 63. I suggested he continue to work on weight management. Assessment & Plan (08/01/2020 10:40 AM INTERNATIONAL REPRESENTATIVE): 06/17/19 QY=562 HDL=39 GQ=137 LDL=45 TC/HDL=3.0 08/01/20 AN=497 HDL=36 VB=359 LDL=63 TC/HDL=3.6 Atorvastatin 40mg daily. Needs to increase activity. The 10-year ASCVD risk score ([place] NELSON Jr., et al., 2013) is: 23.5% [...] flags. Assessment & Plan (06/27/2020 10:28 AM INTERNATIONAL REPRESENTATIVE): Patient's LDL cholesterol previously was 45 but [...] medical regimen. Coronary artery disease invo lving [place] coronary artery of [place] heart without angina pectoris 03/26/2019 Overview (08/08/2022): Status post ARETHA to mid LAD and ARETHA to mid RCA on 26 March 2019 (RL). Normal Cardiolite on 05 July 2020. LVEF of 69%. Assessment & Plan (06/21/2024 9:10 AM INTERNATIONAL REPRESENTATIVE): Seconddary prevneiton. Continues on asa and statin [...] joking. Assessment & Plan (08/08/2022 2:33 PM INTERNATIONAL REPRESENTATIVE): We discussed cardiac catheterization and interventional result [...] modification. Assessment & Plan (08/01/2020 10:42 AM INTERNATIONAL REPRESENTATIVE): Managed by Dr Wallace at [facility] Assessment & Plan (06/27/2020 10:29 AM INTERNATIONAL REPRESENTATIVE): Patient's episode of chest discomfort may represent [...] 05/07/2018 Assessment & Plan (05/07/2018 2:15 PM INTERNATIONAL REPRESENTATIVE): Will obtain CT abdomen and pelvis for surgical planning due to previous hernia repair with mesh. Keratosis, senilis 02/26/2017 Lumbar radiculopathy 01/14/2017 Psoriasis 05/22/2016 Assessment & Plan (06/21/2024 9:10 AM INTERNATIONAL REPRESENTATIVE): Referral to dermatology for second opinion. Prior senior manager mergers & acquisitions tried to prescribe skyrizi but copay was not feasible. Continues on gold valdivia psoriasis therapy. Assessment & Plan (02/09/2024 9:57 AM CDT): Trial of triamcinolone sent to pharmacy. No s/s of secondary bacterial infection. Eczema 05/22/2016 Cyst of breast 09/27/2015 Overview (09/05/2016): Breast cyst SVT (supraventricular tachycardia) ([facility]) Overview (08/08/2022): Status post ablation of AVNRT [...] sinus. Assessment & Plan (08/08/2022 2:36 PM INTERNATIONAL REPRESENTATIVE): Patient could not remember the location or the physician so we had to dig it up. Ever since the ablation, he has not had any palpitations. Obstructive sleep apnea syndrome 01/17/2014 Overview (09/05/2016): Obstructive sleep apnea Assessment & Plan (02/09/2024 9:56 AM CDT): Reviewed import of nightly CPAP. WIll follow respnose. Decreased fatigue and will montior resopnse. Assessment & Plan (08/01/2020 10:44 AM INTERNATIONAL REPRESENTATIVE): Reports 100% compliance w/CPAP. Hypothyroidism 01/17/2014 Overview (09/05/2016): Hypothyroidism Assessment & Plan (02/09/2024 9:57 AM CDT): Clinicaly and chemically euthryoid. No change at the present time. Assessment & Plan (08/01/2020 10:50 AM INTERNATIONAL REPRESENTATIVE): TSH/T4 ordered; will contact with results when [...] 05/07/20182020 Assessment & Plan (05/07/2018 2:16 PM INTERNATIONAL REPRESENTATIVE): Ct will also evaluate for any abnormality, [...] 07/11/2014 07/18/2020 Overview (09/05/2016): Pain in hand Immunizations Name Administration Dates Next Due Influenza, [...] Preservative Free 07/04/2016 ZOSTER Recombinant 12/30/2020,09/02/2018, 019 Social History Tobacco Use Types Packs/Day Years Used Date Smoking Tobacco: Former Cigarettes 0.8 56 1 089 - 2015 Smokeless Tobacco: Never Tobacco Cessation:Counseling [...] on file Legal Sex Male 10:06 AM INTERNATIONAL REPRESENTATIVE Gender Identity Male 04/08/2021 3:39 PM INTERNATIONAL REPRESENTATIVE Sexual Orientation Straight 04/08/2021 3: 39 PM INTERNATIONAL REPRESENTATIVE Last Filed Vital Signs Vital Sign Reading Time Taken Comments Blood Pressure 128/72 06/21/2024 8:14 AM INTERNATIONAL REPRESENTATIVE Pulse 55 06/21/2024 8:14 AM INTERNATIONAL REPRESENTATIVE Temperature 36.4 ??C (97.6 ??F) 06/21/2024 8:14 AM CS T Respiratory Rate 18 06/21/2024 8:14 AM INTERNATIONAL REPRESENTATIVE Oxygen Saturation 97% 06/21/2024 8:14 AM INTERNATIONAL REPRESENTATIVE room air Inhaled Oxygen Concentration - - Weight 115.2 kg (254 lb) 06/21/2024 8:14 AM INTERNATIONAL REPRESENTATIVE Height 175.3 cm (5' 9 ) 06/21/2024 8:14 AM INTERNATIONAL REPRESENTATIVE Body Mass Index 37.51 06/21/2024 8:14 AM INTERNATIONAL REPRESENTATIVE Plan of Treatment Not on file Medical Devices Implanted Type Area Lens Generating Machine Tender Device Identifier Shelf Expiration Date Model / Serial / Lot Med[employer] Inc [id number] Progrip 15x9cm Self Retreader Rectangle Mesh Surgical Polyester Hernia - [id number] Implanted:Qty: 1 on 06/30/2018 by Shane Garcia MD at [facility] Mesh Right: Groin Med[employer] Inc 07/30/2022 [id number] / / [id number] [employer] [id number] System Coronary Stent Xience Megha Everolimus L18 Mm Od3.25 Mm Rapid Exchange - [id number] Implanted:Qty: 1 on 03/26/2019 by Roger De MD at [facility] Stent [employer] 09/09/2019 [id number] / / [id number] [place] [employer] [id number] Synergy 3.5mm 16mm 144cm Radiopaque 1 Access Port Inflation Lumen - [id number] Implanted:Qty: 1 on 03/26/2019 by Roger De MD at [facility] Stent [place] [employer] 12/29/2020 [id number] / / [id number] [employer] [id number] Angio-Seal Evolution 6fr .035in Guidewire Bypass Tube Suture - [id number] Implanted:Qty: 1 on 03/26/2019 by Roger De MD at [facility] [employer] 11/30/2019 [id number] / / [id number] Procedures Procedure Name Priority Date/Time Associated Diagnosis Comments HEPATITIS B SURFACE ANTIBODY (IMMUNE STATUS) Routine 04/08/2024 3:03 PM INTERNATIONAL REPRESENTATIVE T-SPOT.TB Routine 04/08/2024 10:41 AM INTERNATIONAL REPRESENTATIVE EGFR Routine 04/08/2024 9:50 AM INTERNATIONAL REPRESENTATIVE DIFFERENTIAL AUTO Routine 04/08/2024 9:5 0 AM INTERNATIONAL REPRESENTATIVE LIPID PANEL Routine 04/08/2024 9:50 AM INTERNATIONAL REPRESENTATIVE HEPATIC FUNCTION PANEL Routine 04/08/2024 9:50 AM INTERNATIONAL REPRESENTATIVE CBC WITH AUTO DIFFERENTIAL Routine 04/08/2024 9:50 AM INTERNATIONAL REPRESENTATIVE BASIC METABOLIC PANEL Routine 04/08/2024 9:50 AM INTERNATIONAL REPRESENTATIVE HEPATITIS C ANTIBODY Routine 04/08/2024 9:[address] LUNG CANCER SCREENING Schedule Routine, Read Routine (OP Routine) 07/10/2023 10:25 AM INTERNATIONAL REPRESENTATIVE Personal history of nicotine dependence CT ABDOMEN PELVIS W CONTRAST Today 05/15/2018 8:53 AM INTERNATIONAL REPRESENTATIVE Recurrent right inguinal hernia COLONOSCOPY 07/02/2016 12:00 AM INTERNATIONAL REPRESENTATIVE from Last 3 Months or Most Recently Relevant to Health Maintenance Results * Hepatitis B surface antibody (immune status) Blood (04/08/2024 3:03 PM INTERNATIONAL REPRESENTATIVE) HBsAb (immune status) Nonreactive Comment: Interpretive Data [...] last revised on 19. Testing performed by: [facility], [address] [place] [address], [place]., [address] Blood 04/08/2024 3:03 PM INTERNATIONAL REPRESENTATIVE 04/08/2024 3:03 PM INTERNATIONAL REPRESENTATIVE us Tim Robison MD LAB MICROBIOLOGY - GENER AL ORDERABLES Final Result RAFFAELE IRINA (ANSON) [facility] Department [place] [address] * T-SPOT.TB Blood (04/08/2024 10:41 AM INTERNATIONAL REPRESENTATIVE) [facility] T-SPOT.TB Negative SeeBelow Comment: Normal Value: Negative [...] as a quantitative test. Testing performed by: [address] [address] T-SPOT.TB Panel A Spot Count 0 RAFFAELE AREVALO (MARY) Comment:Testing performed by : [address] [address] T-SPOT.TB Panel B Spot Count 0 [facility] (MARY) Comment:Testing performed by : [address] [address] T-SPOT.TB Negative Control Passed [facility] (MARY) Comment:Testing performed by : [address] [address] T-SPOT.TB Positive Control Passed [facility] (MARY) Comment: Test Performed at: [facility], [employer] [address] [place] [address] ??[id number] ? TISH OVIEDO,PHD Testing performed by: [address] [place]., [address] Blood 04/08/2024 10:4 1 AM INTERNATIONAL REPRESENTATIVE 04/08/2024 2:22 PM INTERNATIONAL REPRESENTATIVE Tim Robison MD LAB MICROBIOLOGY - GENER AL ORDERABLES Final Result RAFFAELE AREVALO (ANSON) 1 [facility] Department [place] [address] * eGFR (04/08/2024 9:50 AM INTERNATIONAL REPRESENTATIVE) eGFR 85 >=60 mL/min/1. 73 m2 Comment: [...] was last reviewed 2021. Testing performed by: [facility], [address] [place] [address], [place]., [address] Blood 04/08/2024 9:50 AM INTERNATIONAL REPRESENTATIVE 04/08/2024 2:43 PM INTERNATIONAL REPRESENTATIVE us Tim Robison MD LAB BLOOD ORDERABLES Fin al Result [facility] ([facility]SON) [facility] Department [place] [address] * Differential, auto (04/08/2024 9:50 AM INTERNATIONAL REPRESENTATIVE) Neutrophil abs 4.4 1.5 - 6.5 K/cumm Comment:Testing performed by : [address] [address] Imm gran abs 0.0 0.0 - 0.1 K/cumm [facility] (MARY) Comment:Testing performed by : [address] [address] Lymphocyte abs 1.8 0.8 - 3.3 K/cumm [facility] (MARY) Comment:Testing performed by : [address], [address] Monocyte abs 0.5 0.2 - 0.8 K/cumm [facility] (ANSON) Comment:Testing performed by : [facility], [address] [place] [address]., [address] Eosinophil abs 0.1 0.0 - 0.5 K/cumm [facility] (MARY) Comment:Testing performed by : [address] [address] Basophil abs 0.0 0.0 - 0.1 K/cumm [facility] (ANSON) Comment:Testing performed by : [address], [address] Neutrophil pct 64.6 % [facility] (MARY) Comment: Interpretive Data Percent cell count reference ranges are not reported, since discordance with absolute values may lead to misinterpretation of CBC data. Current Interpretive Data was last revised on 2017. Testing performed by: [address], [address] Imm gran pct 0.4 % [facility] (MARY) Comment: Interpretive Data Percent cell count reference ranges are not reported, since discordance with absolute values may lead to misinterpretation of CBC data. Current Interpretive Data was last revised on 2017. Testing performed by: [facility], [address] [place] [address]., [address] Lymphocyte pct 25.7 % [facility] (MARY) Comment: Interpretive Data Percent cell count reference ranges are not reported, since discordance with absolute values may lead to misinterpretation of CBC data. Current Interpretive Data was last revised on 2017. Testing performed by: [facility], [address] [place] [address]., [address] Monocyte pct 7.9 % [facility] (MARY) Comment: Interpretive Data Percent cell count reference ranges are not reported, since discordance with absolute values may lead to misinterpretation of CBC data. Current Interpretive Data was last revised on 2017. Testing performed by: [facility], [address] [place] [address]., [address] Eosinophil pct 1.0 % [facility] (MARY) Comment: Interpretive Data Percent cell count reference ranges are not reported, since discordance with absolute values may lead to misinterpretation of CBC data. Current Interpretive Data was last revised on 2017. Testing performed by: [facility], [address] [place] [address]., [address] Basophil pct 0.4 % [facility] (MARY) Comment: Interpretive Data Percent cell count reference ranges are not reported, since discordance with absolute values may lead to misinterpretation of CBC data. Current Interpretive Data was last revised on 2017. Testing performed by: [address] [address] Blood 04/08/2024 9:50 AM INTERNATIONAL REPRESENTATIVE 04/08/2024 2:22 PM INTERNATIONAL REPRESENTATIVE us Tim Robison MD LAB BLOOD ORDERABLES Fin al Result RAFFAELE AREVALO (MARY) [facility] Department [place] [address] * (ABNORMAL) CBC with auto differential (04/08/2024 9:50 AM INTERNATIONAL REPRESENTATIVE) WBC 6.8 3.8 - 9.9 K/cumm Comment:Testing performed by : [address] [address] Hgb 14.4 13.0 - 17.5 g/dL [facility] (MARY) Comment:Testing performed by : [facility], [address] [place] [address], [address] Hct 45.0 38.9 - 50.3 % [facility] (MARY) Comment:Testing performed by : [facility], [address] [place] [address], [address] Plt 282 150 - 400 K/cumm [facility] (MARY) Comment:Testing performed by : [facility], [address] [place] [address], [address] MPV 10.1 9.1 - 12.3 fL [facility] (MARY) Comment:Testing performed by : [address], [address] RBC 4.57 4.30 - 5.80 M/cumm [facility] (MARY) Comment:Testing performed by : [address], [address] MCV 98.5(H) 81.3 - 96.4 fL [facility] (MARY) Comment:Testing performed by : [address], [address] MCH 31.5 27.1 - 33.3 pg [facility] (MARY) Comment:Testing performed by : [address], [address] MCHC 32.0(L) 32.3 - 35.7 g/dL [facility] (MARY) Comment:Testing performed by : [address], [address] RDW CV 13.6 11.1 - 14.9 % [facility] (MARY) Comment:Testing performed by : [address], [address] RDW SD 49.4(H) 35.7 - 48.1 fL [facility] (MARY) Comment:Testing performed by : [address], [address] NRBC abs 0.00 0.00 - 0.01 K/cumm [facility] (MARY) Comment:Testing performed by : [address], [address] Blood 04/08/2024 9:50 AM INTERNATIONAL REPRESENTATIVE 04/08/2024 2:22 PM INTERNATIONAL REPRESENTATIVE Tim Robison MD LAB BLOOD ORDERABLES Fin al Result Performing Organization Address City/[facility]/ZIP Co de Phone Number RAFFAELE AREVALO (ANSON) [address] [facility] [place] [address] * Hepatitis C antibody Blood (04/08/2024 9:50 AM INTERNATIONAL REPRESENTATIVE) Hep C Ab Nonreactive Nonreactive Comment: Interpretive [...] last revised on 2019. Testing performed by: [address] [address] Blood 04/08/2024 9:50 AM INTERNATIONAL REPRESENTATIVE 04/08/2024 2:23 PM INTERNATIONAL REPRESENTATIVE Tim Robison MD LAB MICROBIOLOGY - GENER AL ORDERABLES Final Result Performing Organization Address [facility] Co de Phone Number RAFFAELE AREVALO (ANSON) [address] [facility] [place] [address] * Hepatic function panel (04/08/2024 9:50 AM INTERNATIONAL REPRESENTATIVE) Bilirubin, total 0.4 0.1 - 1.2 mg/dL Comment:Testing performed by : [address] [address] Bilirubin, direct 0.1 0.1 - 0.3 mg/dL RAFFAELE AREVALO (MARY) Comment: Lipemia present. ??Results may be affected. Testing performed by: [address] [address] Protein, pl 7.6 6.5 - 8.5 g/dL [facility] (MARY) Comment:Testing performed by : [facility], [address] [place] [address]., [address] Albumin 4.5 3.5 - 5.0 g/dL [facility] (MARY) Comment:Testing performed by : [facility], [address] [place] [address]., [address] Alk phos 69 40 - 130 Units/L [facility] (MARY) Comment:Testing performed by : [facility], [address] [place] [address]., [address] ALT 24 7 - 55 Units/L [facility] (MARY) Comment:Testing performed by : [facility], [address] [place] [address]., [address] AST 34 10 - 50 Units/L [facility] (MARY) Comment:Testing performed by : [facility], [address] [place] [address], [address] Blood 04/08/2024 9:50 AM INTERNATIONAL REPRESENTATIVE 04/08/2024 2:22 PM INTERNATIONAL REPRESENTATIVE Tim Robison MD LAB BLOOD ORDERABLES Fin al Result RAFFAELE IRINA (MARY) [facility] Department of Laboratories [place], [place] [id number] * (ABNORMAL) Lipid panel (04/08/2024 9:50 AM INTERNATIONAL REPRESENTATIVE) Cholesterol 143 30 - 199 mg/dL Comment: [...] last revised on 2018. Testing performed by: [facility], [address] [place] [address]., [address] Triglycerides 159(H) <=149 mg/dL RAFFAELE AREVALO (MARY) [...] last revised on 2018. Testing performed by: [facility], [address] [place] [address]., [address] HDL 34(L) >=40 mg/dL RAFFAELE AREVALO (MARY) Comment: Interpretive Data [...] last revised on 2018. Testing performed by: [facility], [address] [place] [address]., [address] LDL, calculated 81 <=129 mg/dL RAFFAELE AREVALO (MARY) Comment: Interpretive Data Ages < or = 19 years ??Acceptable: ? <110 mg/dL ??Borderline high: ??110-129 mg/dL ??High: ?>or= 130 mg/dL Ages > or = 20 years ??Optimal: ? <100 mg/dL ??Near optimal: ?100-129 mg/dL ??Borderline high: ?? 130-159 mg/dL ??High: ?>160 mg/dL Calculated using the Randy LDL-C estimating equation. This equation was implemented [...] last revised on 2024. Testing performed by: [facility], [address] [place] [address]., [address] Non-HDL Cholesterol 109 mg/dL RAFFAELE AREVALO (MARY) [...] last revised on 2018. Testing performed by: [facility], [address] [place] [address]., [id number] Chol/HDL ratio 4 [facility] (MARY) Comment:Testing performed by : [facility], [address] [place] [address], [address] Blood 04/08/2024 9:50 AM INTERNATIONAL REPRESENTATIVE 04/08/2024 2:22 PM INTERNATIONAL REPRESENTATIVE iTm Robison MD LAB BLOOD ORDERABLES Fin al Result [facility] (MARY) [facility] Department [place] [address] * Basic metabolic panel (04/08/2024 9:50 AM INTERNATIONAL REPRESENTATIVE) Sodium 136 135 - 145 mmol/L Comment:Testing performed by : [address], [address] Potassium, pl 4.3 3.3 - 4.9 mmol/L [facility] (MARY) Comment:Testing performed by : [address], [address] Chloride 101 97 - 110 mmol/L [facility] (MARY) Comment:Testing performed by : [facility], [address] [place] [address], [address] CO2 24 22 - 32 mmol/L [facility] (MARY) Comment:Testing performed by : [address] [address] Anion gap 11 2 - 15 mmol/L [facility] (MARY) Comment:Testing performed by : [address], [address] BUN 20 6 - 25 mg/dL [facility] (MARY) Comment:Testing performed by : [address], [address] Creatinine 0.93 0.80 - 1.30 mg/dL [facility] (MARY) Comment:Testing performed by : [address], [address] Glucose 94 70 - 199 mg/dL CERNER [...] was last revised 2022. Testing performed by: [facility], [address] [place] [address]., [address] Calcium 9.4 8.5 - 10.3 mg/dL RAFFAELE AREVALO (ANSON) Comment:Testing performed by : [facility], [address] [place] [address]., [address] Blood 04/08/2024 9:50 AM INTERNATIONAL REPRESENTATIVE 04/08/2024 2:22 PM INTERNATIONAL REPRESENTATIVE Tim Robison MD LAB BLOOD ORDERABLES Fin al Result RAFFAELE [facility]VAL[facility] (ANSON) [facility] [place] [address] * CT Lung Cancer Screening (07/10/2023 10:25 AM INTERNATIONAL REPRESENTATIVE) Anatomical Region Laterality Modality Chest N/A Computed Tomogra phy 07/10/2023 11:1 7 AM INTERNATIONAL REPRESENTATIVE Impressions 07/10/2023 11:17 AM INTERNATIONAL REPRESENTATIVE 1. ??Lung RADS Category 1 (negative) S. [...] who return to screening) Electronically signed by: Galdys Langford M.D. Narrative 07/10/2023 11:17 AM INTERNATIONAL REPRESENTATIVE EXAMINATION: ??Lung cancer screening CT of the [...] by: Gladys Langford M.D. Stanley Hurtado MD IMG CT PROCEDURES Final Result * CT Abdomen Pelvis W Contrast (05/15/2018 8:53 AM INTERNATIONAL REPRESENTATIVE) Anatomical Region Laterality Modality Body N/A Computed Tomogra phy 05/15/2018 8:55 AM INTERNATIONAL REPRESENTATIVE Impressions 05/15/2018 8:58 AM INTERNATIONAL REPRESENTATIVE 1. ??Fat-containing right inguinal hernia. 2. ??Bosniak 1 bilateral renal cysts. 3. ??Diverticulosis. Electronically signed by: Ahsan Ozuna M.D. Narrative 05/15/2018 8:58 AM INTERNATIONAL REPRESENTATIVE EXAM: CT ABDOMEN PELVIS W CONTRAST HISTORY: [...] Diverticulosis. Electronically signed by: Ahsan Ozuna M.D. [facility] PROCEDURES Final Result * COLONOSCOPY (07/02/2016 12:00 AM INTERNATIONAL REPRESENTATIVE) Anatomical Region Laterality Modality Other Narrative 07/02/2016 12:00 AM INTERNATIONAL REPRESENTATIVE Ordered by an unspecified provider. Procedure Note ProviderDonis MD - 07/02/2016 12:00 AM CST PROCEDURE REPORT Patient: JOSE EM Service Date: 07/02/2016 Account: [id number] Room No: : 1945 Patient Type: SDS Attend.: Taurus Bentley M.D. Admit Date: 07/02/2016 [...] Taurus Bentley MD On 07/04/2016 10:15 AM INTERNATIONAL REPRESENTATIVE Taurus Bentley M.D. /karin TD: 07/02/2016 14:02 CC: Tanmay Mac M.D. Historical Provider ENDOSCOPY PROCEDURES Eliane l Result from Last 3 Months or Most Recently Relevant to Health Maintenance Insurance MEDICARE SOLUTIONS [facility] MEDICARE Address: [facility] [address] [place] [address] MEDICARE SOLUTIONS MEDICARE SOLUTIONS Advance Directives For more information, please contact: [phone] * Full Code (Latest Code Status on File) Date Activated Date Inactivated Comments 11/28/2019 5:53 AM 12/02/2019 7:50 PM * Full Code Date Activated Date Inactivated Comments 03/25/2019 11:25 PM 03/27/2019 4:59 PM Care Teams Crester Relationship Specialty Start Date End Date Tanmay Mac MD [address] [place] [address] PCP - General 08/30/16 Roger De MD [address] [place] [address] Consulting Physician Cardiovascular Disease 03/27/19 Joes Joyce MD [address] [place] [address] Consulting Physician Urology 12/02/19 [place] [address] [place] [address] Referring Physician Pulmonary Disease 07/26/22
--- OUTSIDE RECORDS SUMMARY | 2024-06-25 03:25 | XMS_ITS | Clinical Summary ---
Author Organization [facility] Address [address] [place] [address] Phone Care Team Providers Care Legal Financial Specialist Name Role Phone Unavailable Unavailable Unavailable Reason [...] GENERAL OFFICE VISIT [facility] 7 11:30AM 11:59PM Clinical Notes Includes: Clinical Notes from this encounter No Clinical Notes Recorded
--- OUTSIDE RECORDS SUMMARY | 2024-06-25 03:26 | XMS_ITS | Clinical Summary ---
Author Organization [facility] Address [address] [place] [address] Phone Care Team Providers Care Rag Cutting Machine Operator Name Role Phone Unavailable Unavailable Unavailable Reason [...]
--- OUTSIDE RECORDS SUMMARY | 2024-06-25 03:26 | XMS_ITS | Clinical Summary ---
Author Organization [facility] Address [address] [place] [address] Phone Care Team Providers Care Lead Ramp Service Man Name Role Phone Unavailable Unavailable Unavailable Reason [...]
--- OUTSIDE RECORDS SUMMARY | 2024-06-25 03:26 | XMS_ITS ---
Care Plan - [facility] Created on: June 25, 2024 JOSE NDIAYE : 1945 Sex: Male Author Organization [facility] Address [address] [place] [address] Phone Care Team Providers Care Manager Of Hospital Name Role Phone Unavailable Unavailable Unavailable
--- OUTSIDE RECORDS SUMMARY | 2024-06-25 03:26 | XMS_ITS | Clinical Summary ---
Author Organization [facility] Address [address] [place] [address] Phone Care Team Providers Care Medical Payment Poster Name Role Phone Unavailable Unavailable Unavailable Reason [...]
--- OUTSIDE RECORDS SUMMARY | 2024-06-25 03:26 | XMS_ITS ---
Author Organization [facility] Address [address] [place] [address] Phone Care Team Providers Care Destination Coordinator Name Role Phone Unavailable Unavailable Unavailable Plan [...]
--- OUTSIDE RECORDS SUMMARY | 2024-06-25 03:27 | XMS_ITS | CONTINUITY OF CARE DOCUMENT ---
Author Name ryan davis Address Unknown Organization [facility] Office Address [address] [address] [facility] [address] [place] [address] Phone [phone] Care Team Providers Care Automobile Service Advisor Name Role Phone Nahum Huffman DO Unavailable CAROLYNE MCARTHUR, IVELISSE Cazares Unavailable [phone] ADILENE BRAGA MD Unavailable [phone] PROBLEMS Condition Status Date Provider Notes Sleep apnea, obstructive; on CPAP active Alyssa Barrios RN SVT, recurrent/refractory active Catherine Barrios RN Atrial flutter active Nahum Huffman DO ENCOUNTERS Date Type Provider Location Encounter Diagnosis - In-person encounter Office Visit Nahum Huffman DO [facility] Office Atrial flutter VITAL SIGNS Date [...] Payer name Policy type / Coverage type [place] red [employer] party ID UHC MEDICARE COMPLETE HMO Other [id number] TREATMENT PLAN Date Name Performer Cardiology/EP:s/p AV NRT & Atrial FLultter ablation 02/23/15 Nahum Huffman DO Cardiology/EP:s/p AV NRT & Atrial Flultter ablation 02/23/15 n o recurrences Nahum Huffman DO Cardiology/EP:compliant with use Nahum Huffman DO Cardiology/EP Nahum Huffman DO HISTORY OF PROCEDURES Procedure Date Procedure Name Provider Procedure Notes S tatus SNOMED-CT: 445338372 Smoking Cessation Counseling Nahum Huffman DO completed EKG Nahum Huffman DO comple johnny SNOMED-CT: 961871205 215908 Current Medications Documented Nahum Huffman DO completed
== END 2024-06-23 20:05 | disposition home or self-care (01) ==
PROVIDERS: Emergency Provider Nurse Practitioner; PCP Family Medicine
DX: S86.911A Strain of unspecified muscle(s) and tendon(s) at lower leg level, right leg, initial encounter (principal); W00.9XXA Unspecified fall due to ice and snow, initial encounter; I48.91 Unspecified atrial fibrillation; Z79.01 Long term (current) use of anticoagulants; G25.81 Restless legs syndrome; G62.9 Polyneuropathy, unspecified; I10 Essential (primary) hypertension; J44.9 Chronic obstructive pulmonary disease, unspecified; E78.00 Pure hypercholesterolemia, unspecified; Z85.51 Personal history of malignant neoplasm of bladder; Z79.82 Long term (current) use of aspirin
CPT/HCPCS: 73560; 73564; 99213; A9270; G0463; L1830

== ENCOUNTER 2024-09-17 13:21 | Emergency (ER) | payer MEDICARE, SELFPAY ==
--- OUTSIDE RECORDS SUMMARY | 2024-09-17 13:23 | XMS_ITS | Encounter Summary ---
Author Organization [facility] Address [address] [place] [address] Care Team Providers Care Cash Processor Name Role Phone Tanmay Mac MD Primary Care Provider [phone] Roger De MD Unavailable [phone] Jose Joyce MD Unavailable [phone] Stanley Hurtado MD Unavailable [phone] Encounter Details Date Type Department Care Team (Late st Contact Info) Description 09/16/2024 Telephone [place] [employer] Repairer at [address] [place] [address] Ninfa Mchugh MA Social History Tobacco Use Types Packs/Day Years Used Date Smoking Tobacco: Former Cigarettes 0.8 56 1 959 - 2015 Smokeless Tobacco: Never Alcohol Use Standard Drinks/Week Comments No 0 (1 standard drink = 0.6 oz pur e alcohol) AUDIT-C Answer Date Recorded Q1: How often do you have a drink containing alcohol? Never 07/19/2024 Q2: How many drinks containi ng alcohol do you have on a typical day when you are drinking? Patient does not drink Q3: How often do you have si x or more drinks on one occasion? Never 07/19/2024 Overall Financial Resource Strain (CARDIA) Answe r Date Recorded How hard is it for you to pa y for the very basics like food, housing, medical care, and heating? Not hard at all 12/03/2019 PHQ-2 Answer Date Recorded PHQ-2 Total Score (If total score is 3 or more points, staff should administer the PHQ-9) 0 08/26/2024 Hunger Vital Sign Answer Date Recorded Within [...] things needed for daily living? No 12/03/2019 PHQ-9 Answer Date Recorded PHQ-9 Total Score 0 08/26/2024 Personal Safety Answer Date Recorded Have you ever been in or are you currently in a harmful physical or emotional relationship or is someone making you feel afraid or unsafe? Denies 03/20/2024 Sex and Gender Information Value Date Recorded Sex Assigned at Not on file Legal Sex Male 10:06 AM AUDIT TECH Gender Identity Male 04/08/2021 3:39 PM AUDIT TECH Sexual Orientation Straight 04/08/2021 3: 39 PM AUDIT TECH documented as of this encounter Miscellaneous Notes * Telephone Encounter - Ninfa Mchugh MA - 09/16/2024 3:41 PM CDT Talked with patient and he said the irregular pulse only happened for the one day and everything has been fine since. Does not feel a monitor is necessary. documented in this encounter Plan of Treatment Not on file documented as of this encounter Visit Diagnoses Not on filedocumented in this encounter Care Teams Cash Processor Relationship Specialty Start Date End [place] [address] PCP - General 08/30/16 Roger De MD [address] [place] [address] Consulting Physician Cardiovascular Disease 03/27/19 Jose Joyce MD [address] [place] [address] Consulting Physician Urology 12/02/19 [place] [address] [address] Referring Physician Pulmonary Disease 07/26/22 documented as of this encounter
--- OUTSIDE RECORDS SUMMARY | 2024-09-17 13:23 | XMS_ITS ---
Care Plan - [facility] Created on: September 17, 2024 JOSE NDIAYE : 1945 Sex: Male Author Organization [facility] Address [address] [place] [address] Phone Care Team Providers Care Circular Distributor Name Role Phone Unavailable Unavailable Unavailable
--- OUTSIDE RECORDS SUMMARY | 2024-09-17 13:24 | XMS_ITS | CONTINUITY OF CARE DOCUMENT ---
Author Name ryan, ryan Address Unknown Organization [facility] Office Address [address] [place] [address] Phone [phone] Care Team Providers Care Pet Care Technician Name Role Phone Nahum Huffman DO Unavailable [phone] CAROLYNE MCARTHUR, IVELISSE Cazares Unavailable [phone] ADILENE BRAGA MD Unavailable [phone] PROBLEMS Condition Status Date Provider Notes Sleep apnea, obstructive; on CPAP active Alyssa Barrios RN SVT, recurrent/refractory active Catherine Barrios RN Atrial flutter active Nahum Huffman DO ENCOUNTERS Date Type Provider Location Encounter Diagnosis - In-person encounter Office Visit Nahum Huffman DO [facility] Office Atrial flutter VITAL SIGNS [...] Payer name Policy type / Coverage type [place] [employer] party ID UHC MEDICARE COMPLETE HMO Other [id number] TREATMENT PLAN Date Name Performer Cardiology/EP:s/p AV NRT & Atrial FLultter ablation 02/23/15 Nahum Huffman DO Cardiology/EP:s/p AV NRT & Atrial Flultter ablation 02/23/15 n o recurrences Nahum Huffman DO Cardiology/EP:compliant with use Nahum Huffman DO Cardiology/EP Nahum Huffman DO HISTORY OF PROCEDURES Procedure Date Procedure Name Provider Procedure Notes S tatus SNOMED-CT: 134839502 Smoking Cessation Counseling Nahum Huffman DO completed EKG Nahum Huffman DO comple johnny SNOMED-CT: 885766694 [id number] Current Medications Documented Nahum Huffman DO completed
--- OUTSIDE RECORDS SUMMARY | 2024-09-17 13:24 | XMS_ITS ---
Author Organization [facility] Address [address] [place] [address] Phone Care Team Providers Care Rigging Up Man Name Role Phone Unavailable Unavailable Unavailable Plan of Treatment No Plan of Treatment Recorded Assessments Includes: Assessments for all patient encounters No Assessments Recorded Medical Equipment - Implanted Devices Includes: Current and historical Devices No Medical Equipment Recorded Medications Administered Includes: Administered Medications in patient's chart No Administered Medications Recorded Results Includes: Results from 09/18/2023 through 09/17/2024 No Results Recorded For Specified Dates History [...]
--- OUTSIDE RECORDS SUMMARY | 2024-09-17 13:24 | XMS_ITS | Referral Summary ---
Author Organization [facility] Address [address] [place] [address] Care Team Providers Care Railroad Operating Engineer Name Role Phone Tanmay Mac MD Primary Care Provider [phone] Roger De MD Unavailable [phone] Jose Joyce MD Unavailable [phone] Stanley Hurtado MD Unavailable Encounters Date Type Department Care Team Description 09/16/2024 Telephone [facility] at [address] [place] [address] Ninfa Mchugh MA 09/15/2024 Plan of Care Documentation [facility] [place] [id number] 09/15/2024 7:00 AM CDT Therapy [facility] [place] [address] Chelsie Chauhan, PT Piriformis syndrome of left side 08/26/2024 1:08 PM CDT - 08/26/2024 11:59 PM CDT Hospital Encounter [facility] [address] [place] [address] [address], 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 (Primary Dx); Malignant neoplasm of urinary bladder, unspecified site (HCC); RLS (restless legs syndrome); Nicotine dependence with current use; Spinal stenosis of lumbar region without neurogenic claudication; Impacted cerumen of left ear; Centrilobular emphysema (HCC); BMI 37.0-37.9, adult; Obesity (BMI 35.0-39.9 without comorbidity) 07/27/2024 4:53 PM GRIND OPERATOR - 07/27/2024 11:59 PM GRIND OPERATOR Hospital Encounter [facility] [address] [place] [id number] Personal history of nicotine dependence Discharge Disposition: Discharge to home or self care 07/23/2024 Telephone [facility] [address] [place] [phone] Tracey Roberts RN 07/23/2024 Telephone [facility] [address] [place] [address] Tracey Roberts RN 07/19/2024 2:30 PM GRIND OPERATOR Office Visit [facility] at [address] [phone] Stanley Fitzgerald DO Contusion of right knee, initial encounter (Primary Dx) 07/19/2024 7:39 AM GRIND OPERATOR - 07/19/2024 11:59 PM GRIND OPERATOR Hospital Encounter [facility] [address] [place] [phone] Spinal stenosis of lumbar region with neurogenic claudication Discharge Disposition: Discharge to home or self care 07/19/2024 7:39 AM GRIND OPERATOR - 07/19/2024 11:59 PM GRIND OPERATOR Hospital Encounter [facility] [address] [place] [address] Dyspepsia Discharge Disposition: Discharge to home or self care 06/28/2024 Telephone [facility] [address] [facility] [address], [place] [phone] Felipe Garrett MD 06/23/2024 Orders Only [facility] Health Information Management [address] [place] [address] Scanning, Provider 06/21/2024 8:30 AM GRIND OPERATOR [facility] [address] [address] Tanmay Mac MD Dyspepsia (Primary Dx); Spinal stenosis of lumbar region with neurogenic claudication; 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; Malignant neoplasm of urinary bladder, unspecified site (HCC); Paroxysmal atrial fibrillation (HCC); RLS (restless legs syndrome); BMI 37.0-37.9, adult; Severe obesity (BMI 35.0-39.9) with comorbidity (HCC); Psoriasis from Last 3 Months Allergies Active Allergy Reactions Criticality Noted Date Comments Duloxetine Diarrhea,Other (See comments) Low 02/05/2023 Blood Pressure increase Medications melatonin 5 mg tablet Take 1 tablet (5 mg total) by mouth nightly Active aspirin 81 mg enteric coated tablet Take 1 tablet (81 mg total) by mouth daily 30 tablet 0 Active tbtvlleu-luw-S V-vnxillm-yzpx in 0.4-300-250 mg-mcg-mcg tabletIndicati ons:Vitamin Deficiency Prevention 1 tablet Active magnesium gluconate 200 mg tabletIndicati ons:hypomagnes emia 1 tablet (200 mg total) Active metoprolol XL (TOPROL-XL) 25 mg extended release [...] by mouth daily 30 tablet 11 4 025 Active levothyroxine (SYNTHROID) 150 mcg tablet TAKE 1 TABLET BY MOUTH EVERY DAY 100 tablet 1 4 Active atorvastatin (LIPITOR) 40 mg tablet TAKE 1 TABLET BY MOUTH EVERY DAY 90 tablet 1 5 Active pramipexole (MIRAPEX) 1 mg tablet TAKE 1 TABLET BY MOUTH EVERY DAY NIGHTLY 90 tablet 1 5 Active varenicline tartrate (CHANTIX MAHNAZ) 0.5 mg (11)- 1 mg (42) tablet Use as directed on package instructions , try to quit smoking after 1 week. 53 tablet 5 025 Active ramipriL (ALTACE) 10 mg capsule TAKE 2 CAPSULES BY MOUTH DAILY 180 capsule 3 5 Active ramipriL (ALTACE) 10 mg capsule TAKE 2 CAPSULES BY MOUTH DAILY 180 capsule 3 4 025 Discontinued Active Problems Problem Noted Date Diagnosed Date Impacted cerumen of left ear 08/13/2024 Assessment & Plan (08/13/2024 9:59 AM CDT): Cmpoeted removal and will follwore spnse. Spinal stenosis of lumbar re gion without neurogenic claudication 08/13/2024 Assessment & Plan (08/13/2024 10:00 AM CDT): Referral to pain managemetn and will montior rspnose. Obesity (BMI 35.0-39.9 without comorbidity) 07/31 RLS (restless legs syndrome) 06/21/2024 Assessment & Plan (08/13/2024 9:59 AM CDT): Continue on mirapex and will follwor espnose. NO side effects ntoed. Assessment & Plan (06/21/2024 9:11 AM GRIND OPERATOR): WIll switch from ropinirole to mirapex and will follwor esponse. Spinal stenosis of lumbar re gion with neurogenic claudication 06/21/2024 Assessment & Plan (06/21/2024 9:12 AM GRIND OPERATOR): Refer for MRI. Pain radiating into the lower extremities. Does much better leaning forward with extended walking. Script given for rollator walker. Dyspepsia 06/21/2024 Assessment & Plan (06/21/2024 9:13 AM GRIND OPERATOR): NO evidence of an acute abdomen. No prior EGD. M Most likely body habitus related and while travelling. Stop iron supplemetnation. WIll montiro respnose. Check ultrasound for biliary pathology. Nicotine dependence with current use 04/07/2024 Assessment & Plan (08/13/2024 9:59 AM CDT): MOtivated. Sciprt given for chantix and will follow response. Assessment & Plan (04/07/2024 11:47 AM GRIND OPERATOR): Encouraged cutting back. Hospital discharge follow-up 04/07/2024 Assessment & Plan (04/07/2024 11:46 AM GRIND OPERATOR): IMahsa SENIOR SQL SERVER DBA have personally reviewed pertinent inpatient and/or ED records, including discharge medications and Clindesk if applicable. This patient's discharge medication list has been reviewed and reconciled with his outpatient medication list and has also been reviewed with patient and/or caregiver. I have noted any changes. BMI 37.0-37.9, adult 02/09/2024 Assessment & Plan (06/21/2024 9:11 AM GRIND OPERATOR): ENcourage 150min/week aerobic exericse. Follow response. Assessment & Plan (02/09/2024 9:58 AM CDT): Encoruage 150min/week aerobic exericse. Healthy food chocies. Severe obesity (BMI 35.0-39.9) with comorbidity 02/09/2024 Assessment & Plan (06/21/2024 9:11 AM GRIND OPERATOR): Encourage 150min/weeka erobic exercise. WIll follow response. [...] (shortness of breath) 01/27/2024 Paroxysmal atrial fibrillation 12/29/2023 Overview (01/15/2024): Some atrial fibrillation noted on cardiac monitoring in December 2023. It occurred less than 1% of the time. Eliquis 5 mg p.o. b.i.d. suggested (Rick Vasc score of 3 with a 3.2% yearly stroke risk) but patient is not taking it. Assessment & Plan (06/21/2024 9:11 AM GRIND OPERATOR): Contiues on metoprolol XL and apixaban. WIll follow response. Assessment & Plan (04/07/2024 11:48 AM GRIND OPERATOR): Rate controlled. Continue metoprolol, eliquis. Continue f/u [...] 08/01/2020 Assessment & Plan (08/01/2020 10:41 AM GRIND OPERATOR): Reviewed need to lose weight, reviewed health benefits. Reviewed recommendations for daily intake & activity 20-30 minutes/day. Discussed healthy diet and importance of regular physical activity. Centrilobular emphysema 07/18/2020 Assessment & Plan (08/13/2024 9:59 AM CDT): Codavid f/u with Dr. Hurtado. No increased owkr of breahting. Assessment & Plan (04/07/2024 2:54 PM GRIND OPERATOR): No recent exacerbations. Highly encouraged to continue cutting back tobacco. We will also avoid nicotine gum. Red flags reviewed. Assessment & Plan (08/01/2020 10:42 AM GRIND OPERATOR): COPD remains stable. Followed by [facility] (Dr Mohamud). Discussed monitoring symptoms and use of quick-relief medications; to contact us early in course of exacerbation. Warning signs of respiratory distress were reviewed with Jose Em. Will continue current treatment at this time. Encounter for Medicare annual wellness exam 07/03 Assessment & Plan (08/01/2020 10:42 AM GRIND OPERATOR): 1. Eat a healthy diet: focus on lean meats and proteins, more fruits, vegetables and whole grains and low in sugars and fats. Limit red meat and avoid processed meat. 2. Maintain a healthy weight; avoid being overweight. Aim for a normal body mass index (BMI) of 18.5-24.9. Help learning to eat healthier, we can set up appointment with solution make up operator/metal machine operator. 3. Have an active lifestyle, [...] of urinary bladder 05/10/2020 Assessment & Plan (08/13/2024 9:58 AM CDT): Continue f/u with urology and will montior response. No gross hematuria. Assessment & Plan (06/21/2024 9:10 AM GRIND OPERATOR): Continue annual f/u with urology. No recurrent hematuria or other abonralities. Assessment & Plan (02/09/2024 9:57 AM CDT): Continue f/u with Dr. Barclay. No evidence fo recurrence. Assessment & Plan (08/01/2020 10:44 AM GRIND OPERATOR): Managed by Dr Joyce. Completed BCG 05/2020. Enlarged prostate 12/10/2019 Overview (12/10/2019): Added automatically from request for surgery [id number] Gross hematuria 12/01/2019 Bladder mass 11/26/2019 Overview (11/26/2019): Added automatically from request for surgery [id number] Hematuria 07/13/2019 Abnormal glucose 04/19/2019 Assessment & [...] 03/26/2019 Assessment & Plan (08/01/2020 10:43 AM GRIND OPERATOR): The blood pressure is under good control. [...] mg/dL. He has been at goal since 2019. No change in medical regimen here. Assessment & Plan (10/07/2023 11:46 AM CDT): Discussed LDL cholesterol goal of less than 70 mg/dL. He has been at goal over the past 4 years. No change in medical regimen here. Assessment & Plan (08/08/2022 2:33 PM GRIND OPERATOR): We discussed LDL cholesterol goal of less than 70 mg/dL. He has been at goal since 2019. No change in medical regimen here. Assessment & Plan (12/28/2020 8:32 AM CDT): Patient's LDL cholesterol in July was 63. I suggested he continue to work on weight management. Assessment & Plan (08/01/2020 10:40 AM GRIND OPERATOR): 06/17/19 KX=845 HDL=39 EV=125 LDL=45 TC/HDL=3.0 08/01/20 NI=392 HDL=36 UR=611 LDL=63 TC/HDL=3.6 Atorvastatin 40mg daily. Needs to increase activity. The 10-year ASCVD risk score (Christopherag NELSON Jr., et al., 2013) is: 23.5% [...] flags. Assessment & Plan (06/27/2020 10:28 AM GRIND OPERATOR): Patient's LDL cholesterol previously was 45 but [...] medical regimen. Coronary artery disease invo lving cahto coronary artery of cahto heart without angina pectoris 03/26/2019 Overview (08/08/2022): Status post ARETHA to mid LAD and ARETHA to mid RCA on 26 March 2019 (RL). Normal Cardiolite on 05 July 2020. LVEF of 69%. Assessment & Plan (08/13/2024 9:58 AM CDT): Secondarypernvetion. WIll cotinue on antiplatelet and statin tehrpay. Cardiac cath UTD. Assessment & Plan (06/21/2024 9:10 AM GRIND OPERATOR): Seconddary prevneiton. Continues on asa and statin [...] joking. Assessment & Plan (08/08/2022 2:33 PM GRIND OPERATOR): We discussed cardiac catheterization and interventional result [...] modification. Assessment & Plan (08/01/2020 10:42 AM GRIND OPERATOR): Managed by Dr Wallace at [facility] Assessment & Plan (06/27/2020 10:29 AM GRIND OPERATOR): Patient's episode of chest discomfort may represent [...] 05/07/2018 Assessment & Plan (05/07/2018 2:15 PM GRIND OPERATOR): Will obtain CT abdomen and pelvis for surgical planning due to previous hernia repair with mesh. Keratosis, senilis 02/26/2017 Lumbar radiculopathy 01/14/2017 Psoriasis 05/22/2016 Assessment & Plan (06/21/2024 9:10 AM GRIND OPERATOR): Referral to dermatology for second opinion. Prior crate opener tried to prescribe skyrizi but copay was not feasible. Continues on gold valdivia psoriasis therapy. Assessment & Plan (02/09/2024 9:57 AM CDT): Trial of triamcinolone sent to pharmacy. No s/s of secondary bacterial infection. Eczema 05/22/2016 Cyst of breast 09/27/2015 Overview (09/05/2016): Breast cyst SVT (supraventricular tachycardia) (CMS/HCC) Overview (08/08/2022): Status post ablation of AVNRT [...] sinus. Assessment & Plan (08/08/2022 2:36 PM GRIND OPERATOR): Patient could not remember the location or the physician so we had to dig it up. Ever since the ablation, he has not had any palpitations. Obstructive sleep apnea syndrome 01/17/2014 Overview (09/05/2016): Obstructive sleep apnea Assessment & Plan (02/09/2024 9:56 AM CDT): Reviewed import of nightly CPAP. WIll follow respnose. Decreased fatigue and will montior resopnse. Assessment & Plan (08/01/2020 10:44 AM GRIND OPERATOR): Reports 100% compliance w/CPAP. Hypothyroidism 01/17/2014 Overview (09/05/2016): Hypothyroidism Assessment & Plan (02/09/2024 9:57 AM CDT): Clinicaly and chemically euthryoid. No change at the present time. Assessment & Plan (08/01/2020 10:50 AM GRIND OPERATOR): TSH/T4 ordered; will contact with results when [...] 05/07/20182020 Assessment & Plan (05/07/2018 2:16 PM GRIND OPERATOR): Ct will also evaluate for any abnormality, [...] 07/18/2020 Overview (09/05/2016): Pain in hand Immunizations Immunization Administration Dates Next Due Influenza, Quad, Adjuvantate [...] on file Legal Sex Male 10:06 AM GRIND OPERATOR Gender Identity Male 04/08/2021 3:39 PM GRIND OPERATOR Sexual Orientation Straight 04/08/2021 3: 39 PM GRIND OPERATOR Last Filed Vital Signs Vital Sign Reading Time Taken Comments Blood Pressure 164/66 08/26/2024 1:22 PM CDT Pulse 62 08/26/2024 1:22 PM CDT Temperature 36.7 C (98 F) 08/13/2024 9:13 AM CDT Respiratory Rate 18 08/26/2024 1:22 PM CDT Oxygen Saturation 97% 08/26/2024 1:22 PM CDT Inhaled Oxygen Concentration - - Weight 115.7 kg (255 lb) 08/13/2024 9:13 AM CDT Height 175.3 cm (5' 9 ) 08/13/2024 9:13 AM CDT Body Mass Index 37.66 08/13/2024 9:13 AM CDT Plan of Treatment Not on file Medical Devices Implanted Type Area Broadloom Weaver Device Identifier Shelf Expiration Date Model / Serial / Lot [employer] [id number] Progrip 15x9cm Self Tape Keller Operator Rectangle Mesh Surgical Polyester Hernia - [id number] Implanted:Qty: 1 on 06/30/2018 by Shane Garcia MD at [facility] Mesh Right: Groin [employer] 07/30/2022 [id number] / / [id number] [employer] [id number] System Coronary Stent Xience Megha Everolimus L18 Mm Od3.25 Mm Rapid Exchange - [id number] Implanted:Qty: 1 on 03/26/2019 by Roger De MD at [facility] Stent [employer] 09/09/2019 [id number] / / [id number] [employer] [id number] Synergy 3.5mm 16mm 144cm Radiopaque 1 Access Port Inflation Lumen - [id number] Implanted:Qty: 1 on 03/26/2019 by Roger De MD at [facility] Stent [employer] 12/29/2020 [id number] / / [id number] Daig [employer] [id number] Angio-Seal Evolution 6fr .035in Guidewire Bypass Tube Suture - [id number] Implanted:Qty: 1 on 03/26/2019 by Roger De MD at [facility] Daig [employer] 11/30/2019 [id number] / / [id number] Procedures Procedure Name Priority Date/Time Associated Diagnosis Comments CT LUNG CANCER SCREENING Schedule Routine, Read Routine (OP Routine) 07/27/2024 5:22 PM GRIND OPERATOR Personal history of nicotine dependence US ABDOMEN COMPLETE Schedule Routine, Read Routine (OP Routine) 07/19/2024 10:17 AM GRIND OPERATOR Dyspepsia MRI LUMBAR SPINE WO CONTRAST Schedule Routine, Read Routine (OP Routine) 07/19/2024 9:22 AM GRIND OPERATOR Spinal stenosis of lumbar region with neurogenic claudication SCAN - RADIOLOGY/IMAGING 06/23/2024 HEPATITIS C ANTIBODY Routine 04/08/2024 9:[address] ABDOMEN PELVIS W CONTRAST Today 05/15/2018 8:53 AM GRIND OPERATOR Recurrent right inguinal hernia COLONOSCOPY 07/02/2016 12:00 AM GRIND OPERATOR from Last 3 Months or Most Recently Relevant to Health Maintenance Results * CT Lung Cancer Screening (07/27/2024 5:22 PM GRIND OPERATOR) Anatomical Region Laterality Modality Chest N/A Computed Tomogra phy 08/01/2024 7:47 AM GRIND OPERATOR Narrative 08/01/2024 7:54 AM GRIND OPERATOR EXAM DESCRIPTION: CT LUNG CANCER SCREENING REASON FOR STUDY: Screening CT of the chest in a current smoker with a 50 pack year smoking history. Additional history: None. TECHNIQUE: Low dose CT scan of the chest was performed without intravenous contrast using helical scanning technique. The exam extends from the lung apices through the lung bases. Automatic exposure control was used as a dose optimization technique. NOTE: This study was performed for the specific purposes of lung cancer screening and is not an alternative to diagnostic chest CT. The sensitivity for detection of solid visceral lesions is diminished without the use of intravenous contrast. RADIATION DOSE: CT dose index volume (CTDIvol) = 2.2 mGy COMPARISON: CT chest 03/21/2024, 07/10/2023 FINDINGS: SMOKING RELATED LUNG DISEASE: Minimal pulmonary emphysema. Minimal atelectasis or scarring the lung bases. LUNG NODULES: No definite noncalcified pulmonary nodule. PLEURAE: No pneumothorax or pleural effusion. MEDIASTINUM/BILL: No mediastinal or hilar lymphadenopathy within the limitations of a noncontrast exam. HEART: Heart size is normal with no pericardial effusion. CORONARY ARTERY CALCIFICATION: Severe VASCULATURE: No thoracic aortic aneurysm. AXILLAE: No lymphadenopathy. CHEST WALL: No masses. No subcutaneous air. HARDWARE/LINES/TUBES: None. UPPER ABDOMEN: No significant abnormality. MUSCULOSKELETAL: Moderate thoracic spondylosis. IMPRESSION: No definite noncalcified pulmonary nodule. Minimal pulmonary emphysema. Severe coronary artery calcification. Lung-RADS category 1: Negative. Recommendation: Low dose Screening CT of chest in 12 months. THIS IS AN ELECTRONICALLY VERIFIED FINAL REPORT 08/01/2024 7:54 AM - Electronically signed by Aldo Gardner M.D. LB: MAYURI Report ID: [id number] Reading Location: [id number] Procedure Note Aldo Gardner MD - 08/01/2024 EXAM DESCRIPTION: CT LUNG CANCER SCREENING REASON FOR STUDY: Screening CT of the chest in a current smoker with a50 pack year smoking history. Additional history: None. TECHNIQUE: Low dose CT scan of the chest was performed without intravenous contrast using helical scanning technique. The exam extends from the lung apices through the lung bases. Automatic exposure control was used as adose optimization technique. NOTE: This study was performed for the specific purposes of lung cancer screening and is not an alternative to diagnostic chest CT. Thesensitivity for detection of solid visceral lesions is diminished without the use of intravenous contrast. RADIATION DOSE: CT dose index volume (CTDIvol) = 2.2 mGy COMPARISON: CT chest 03/21/2024, 07/10/2023 FINDINGS: SMOKING RELATED LUNG DISEASE: Minimal pulmonary emphysema. Minimal atelectasis or scarring the lung bases. LUNG NODULES: No definite noncalcified pulmonary nodule. PLEURAE: No pneumothorax or pleural effusion. MEDIASTINUM/BILL: No mediastinal or hilar lymphadenopathy within the limitations of a noncontrast exam. HEART: Heart size is normal with no pericardial effusion. CORONARY ARTERY CALCIFICATION: Severe VASCULATURE: No thoracic aortic aneurysm. AXILLAE: No lymphadenopathy. CHEST WALL: No masses. No subcutaneous air. HARDWARE/LINES/TUBES: None. UPPER ABDOMEN: No significant abnormality. MUSCULOSKELETAL: Moderate thoracic spondylosis. IMPRESSION: No definite noncalcified pulmonary nodule. Minimal pulmonary emphysema. Severe coronary artery calcification. Lung-RADS category 1: Negative. Recommendation: Low dose Screening CT of chest in 12 months. THIS IS AN ELECTRONICALLY VERIFIED FINAL REPORT 08/01/2024 7:54 AM - Electronically signed by Aldo Gardner M.D. LB: MAYURI Report ID: [id number] Reading Location: [id number] Stanley Hurtado MD IMG CT PROCEDURES Final Result * US Abdomen Complete (07/19/2024 10:17 AM GRIND OPERATOR) Anatomical Region Laterality Modality Abdomen N/A Ultrasound 07/21/2024 7:00 AM GRIND OPERATOR Narrative 07/21/2024 7:03 AM GRIND OPERATOR EXAM DESCRIPTION: US ABDOMEN COMPLETE REASON FOR STUDY: Dyspepsia for few months. TECHNIQUE: Dynamic and static images acquired of the abdomen and recorded on PACS. Additional selected color Doppler and spectral images recorded. COMPARISON: CT abdomen and pelvis 05/13/2022. FINDINGS: PANCREAS: Visualized portions of the pancreas are within normal limits. Portions of the pancreatic body and tail are obscured due to bowel gas. LIVER: Measures 15.2 cm and is increased in echogenicity. There is a coarsened hepatic echotexture. There is no focal hepatic lesion. LIVER VASCULATURE: Normal directional flow of the main portal and hepatic veins. GALLBLADDER: No echogenic gallstones, gallbladder wall thickening, pericholecystic fluid, or Barr's sign. BILIARY: No intrahepatic ductal dilatation. Common bile duct measures 0.4 cm. INFERIOR VENA CAVA: Unremarkable. AORTA: No abdominal aortic aneurysm. RIGHT KIDNEY: Kidney measures 11.1 cm. There is slight increased echogenicity and normal cortical thickness. There is no hydronephrosis. Upper pole right kidney anechoic lesion 3.2 x 2.9 x 2.8 cm with increased through transmission evidence of a cyst. LEFT KIDNEY: Kidney measures 11.2 cm. There is slightly increased echogenicity and normal cortical thickness. There is no hydronephrosis. Hypoechoic lesion left kidney with low level internal echoes may be a mildly complicated cyst, this is 1.9 x 1.9 x 1.6 cm. This measured fluid attenuation on the prior CT. SPLEEN: Measures 7.7 cm with no focal lesion. PERITONEAL AND PLEURAL SPACES: No ascites or pleural effusion. OTHER: No other significant abnormality. IMPRESSION: No evidence of an acute abnormality. Hepatic steatosis and coarsened hepatic echotexture. Bilateral renal cysts. Slightly echogenic kidneys suggesting medical renal disease. THIS IS AN ELECTRONICALLY VERIFIED FINAL REPORT 07/21/2024 7:03 AM - Electronically signed by Jac Boyce M.D. CH: ARIANNE Report ID: [id number] Reading Location: [place] [id number] Procedure Note Jac Boyce Jr., MD - 07/21/2024 EXAM DESCRIPTION: US ABDOMEN COMPLETE REASON FOR STUDY: Dyspepsia for few months. TECHNIQUE: Dynamic and static images acquired of the abdomen and recordedon PACS. Additional selected color Doppler and spectral images recorded. COMPARISON: CT abdomen and pelvis 05/13/2022. FINDINGS: PANCREAS: Visualized portions of the pancreas are within normal limits. Portions of the pancreatic body and tail are obscured due to bowel gas. LIVER: Measures 15.2 cm and is increased in echogenicity. There is a coarsened hepatic echotexture. There is no focal hepatic lesion. LIVER VASCULATURE: Normal directional flow of the main portal and hepatic veins. GALLBLADDER: No echogenic gallstones, gallbladder wall thickening, pericholecystic fluid, or Barr's sign. BILIARY: No intrahepatic ductal dilatation. Common bile duct measures 0.4 cm. INFERIOR VENA CAVA: Unremarkable. AORTA: No abdominal aortic aneurysm. RIGHT KIDNEY: Kidney measures 11.1 cm. There is slight increased echogenicity and normal cortical thickness. There is no hydronephrosis.Upper pole right kidney anechoic lesion 3.2 x 2.9 x 2.8 cm with increasedthrough transmission evidence of a cyst. LEFT KIDNEY: Kidney measures 11.2 cm. There is slightly increased echogenicity and normal cortical thickness. There is no hydronephrosis. Hypoechoic lesion left kidney with low level internal echoes may be amildly complicated cyst, this is 1.9 x 1.9 x 1.6 cm. This measured fluidattenuation on the prior CT. SPLEEN: Measures 7.7 cm with no focal lesion. PERITONEAL AND PLEURAL SPACES: No ascites or pleural effusion. OTHER: No other significant abnormality. IMPRESSION: No evidence of an acute abnormality. Hepatic steatosis and coarsened hepatic echotexture. Bilateral renal cysts. Slightly echogenic kidneys suggesting medical renal disease. THIS IS AN ELECTRONICALLY VERIFIED FINAL REPORT 07/21/2024 7:03 AM - Electronically signed by Jac Boyce M.D. CH: ARIANNE Report ID: [id number] Reading Location: [place] [address] us Tanmay Mac MD IMG US PROCEDURES Final R esult * MRI Lumbar Spine WO Contrast (07/19/2024 9:22 AM GRIND OPERATOR) Anatomical Region Laterality Modality Spine N/A Magnetic Resonan ce 07/19/2024 11:5 8 AM GRIND OPERATOR Narrative 07/19/2024 12:03 PM GRIND OPERATOR EXAM DESCRIPTION: MRI LUMBAR SPINE WO CONTRAST REASON FOR STUDY: L/S-spine canal stenosis, Low back pain, symptoms persist with > 6 wks treatment Chronic back pain for over 15 years with pain into bilateral legs and feet, no known injury, no surgery TECHNIQUE: Sagittal and Axial imaging includes T1, T2, STIR sequences. COMPARISON: Lumbar spine MRI dated 01/17/2017. Lumbar spine radiographs dated 01/14/2017. Relevant portions of the CT urogram dated 07/14/2021. FINDINGS: SEGMENTATION: 5 qlr-dht-hdcawqn lumbar type vertebral bodies. ALIGNMENT: Mild retrolisthesis of L2 on L3, L3 on L4 and L5 on S1. VERTEBRAE: No acute compression fracture in the lumbar spine. Pdui-xe-xkwopgzs endplate degenerative changes and marginal spur formation. Rounded T1 and T2 hyperintense foci including in the L1 vertebral body in keeping with intraosseous hemangioma. DISC HEIGHT: Multilevel disc desiccation and height loss. HARDWARE: None in the spine. CORD/CAUDA: Conus medullaris terminates at L2. LOWER THORACIC: Incompletely imaged. No high-grade spinal canal stenosis. INDIVIDUAL DISC LEVELS: L1-L2: No significant disc bulge, spinal canal or neural foraminal narrowing. L2-L3: Retrolisthesis of L2 on L3 with unroofing of the disc. Thickened ligamentum flavum and facet arthropathy. Trace facet joint effusion. No significant spinal canal or neural foraminal narrowing. L3-L4: Disc bulge with marginal spur formation. Superimposed central disc protrusion. Thickened ligamentum flavum and facet arthropathy. Mild spinal canal stenosis. Lateral recess effacement on both sides. Mild neural foraminal narrowing. L4-L5: Minor disc bulge with thickened ligamentum flavum and facet arthropathy. No significant spinal canal or neural foraminal narrowing. L5-S1: Disc bulge with marginal spur formation. Bilateral facet arthropathy. No significant spinal canal stenosis. Ngfm-os-yfucadkw left and mild right neural foraminal narrowing. Portion of the disc/marginal spur abuts the undersurface of the exiting L5 nerve roots. VISUALIZED UPPER ABDOMEN: Partially imaged kidneys with rounded T2 hyperintense foci in both sides are incompletely characterized on this MRI, please refer to the dedicated CT urogram report dated 07/14/2021. IMPRESSION: 1. Hyxr-zv-ipmdguwp lumbar disc degeneration with thickened ligamentum flavum and more advanced facet arthropathy has slightly worsened when compared to the previous lumbar spine MRI dated 01/17/2017 as described. There is no high-grade spinal canal stenosis. 2. Neural foraminal stenosis and additional findings as above. THIS IS AN ELECTRONICALLY VERIFIED FINAL REPORT 07/19/2024 12:03 PM - Electronically signed by Jelani Bishop D.O. AP: AP Report ID: [id number] Reading Location: [place] [address] Procedure Note Jelani Bishop, DO - 07/19/2024 EXAM DESCRIPTION: MRI LUMBAR SPINE WO CONTRAST REASON FOR STUDY: L/S-spine canal stenosis, Low back pain, symptomspersist with > 6 wks treatment Chronic back pain for over 15 years with pain into bilateral legs andfeet, no known injury, no surgery TECHNIQUE: Sagittal and Axial imaging includes T1, T2, STIR sequences. COMPARISON: Lumbar spine MRI dated 01/17/2017. Lumbar spine radiographs dated 01/14/2017. Relevant portions of the CT urogram dated 07/14/2021. FINDINGS: SEGMENTATION: 5 gte-wte-ezddnff lumbar type vertebral bodies. ALIGNMENT: Mild retrolisthesis of L2 on L3, L3 on L4 and L5 on S1. VERTEBRAE: No acute compression fracture in the lumbar spine. Pykr-pm-maasigfs endplate degenerative changes and marginal spurformation. Rounded T1 and T2 hyperintense foci including in the L1 vertebral body in keeping with intraosseous hemangioma. DISC HEIGHT: Multilevel disc desiccation and height loss. HARDWARE: None in the spine. CORD/CAUDA: Conus medullaris terminates at L2. LOWER THORACIC: Incompletely imaged. No high-grade spinal canalstenosis. INDIVIDUAL DISC LEVELS: L1-L2: No significant disc bulge, spinal canal or neural foraminalnarrowing. L2-L3: Retrolisthesis of L2 on L3 with unroofing of the disc. Thickened ligamentum flavum and facet arthropathy. Trace facet joint effusion. No significant spinal canal or neural foraminal narrowing. L3-L4: Disc bulge with marginal spur formation. Superimposed central disc protrusion. Thickened ligamentum flavum and facet arthropathy. Mildspinal canal stenosis. Lateral recess effacement on both sides. Mild neural foraminal narrowing. L4-L5: Minor disc bulge with thickened ligamentum flavum and facet arthropathy. No significant spinal canal or neural foraminal narrowing. L5-S1: Disc bulge with marginal spur formation. Bilateral facetarthropathy. No significant spinal canal stenosis. Gdwx-dz-ljfwpfqi left and mildright neural foraminal narrowing. Portion of the disc/marginal spur abuts the undersurface of the exiting L5 nerve roots. VISUALIZED UPPER ABDOMEN: Partially imaged kidneys with rounded T2 hyperintense foci in both sides are incompletely characterized on thisMRI, please refer to the dedicated CT urogram report dated 07/14/2021. IMPRESSION: 1. Mopg-bk-sxempdow lumbar disc degeneration with thickened ligamentum flavum and more advanced facet arthropathy has slightly worsened whencompared to the previous lumbar spine MRI dated 01/17/2017 as described. There isno high-grade spinal canal stenosis. 2. Neural foraminal stenosis and additional findings as above. THIS IS AN ELECTRONICALLY VERIFIED FINAL REPORT 07/19/2024 12:03 PM - Electronically signed by Jelani Bishop D.O. AP: SHELLIE Report ID: [id number] Reading Location: [place] [address] Tanmay Mac MD [facility] [place]ED[place] Final Result * SCAN - RADIOLOGY/IMAGING (06/23/2024) Anatomical Region Laterality Modality Other Provider Scanning Final Result * Hepatitis C antibody Blood (04/08/2024 9:50 AM GRIND OPERATOR) Hep C Ab Nonreactive Nonreactive Comment: Interpretive Data Nonreactive: Antibodies to HCV not detected. Does NOT exclude the possibility of recent exposure to HCV. Equivocal: Equivocal for HCV antibodies. Supplemental molecular testing will be automatically performed to determine infection status in accordance with current CDC screening recommendations. Reactive: Positive for HCV antibodies. This may represent current or past HCV infection. Supplemental molecular testing will be automatically performed to determine current infection status in accordance with current CDC screening recommendations. Interpretive data was last revised on 2019. Testing performed by: [facility], [address] [place] [address], [place] [address] Blood 04/08/2024 9:50 AM GRIND OPERATOR 04/08/2024 2:23 PM GRIND OPERATOR us Tim Robison MD LAB MICROBIOLOGY - GENER AL ORDERABLES Final Result RAFFAELE AREVALO ([place]) 1 [facility] Department [place] [address] * CT Abdomen Pelvis W Contrast (05/15/2018 8:53 AM GRIND OPERATOR) Anatomical Region Laterality Modality Body N/A Computed Tomogra phy 05/15/2018 8:55 AM GRIND OPERATOR Impressions 05/15/2018 8:58 AM GRIND OPERATOR 1. Fat-containing right inguinal hernia. 2. Bosniak 1 bilateral renal cysts. 3. Diverticulosis. Electronically signed by: Ahsan Ozuna M.D. Narrative 05/15/2018 8:58 AM GRIND OPERATOR EXAM: CT ABDOMEN PELVIS W CONTRAST HISTORY: [...] Electronically signed by: Ahsan Ozuna M.D. [facility]ED[facility] Final Result * COLONOSCOPY (07/02/2016 12:00 AM GRIND OPERATOR) Anatomical Region Laterality Modality Other Narrative 07/02/2016 12:00 AM GRIND OPERATOR Ordered by an unspecified provider. Procedure Note ProviderDonis MD - 07/02/2016 12:00 AM CST PROCEDURE REPORT Patient: JOSE EM Service Date: 07/02/2016 Account: [id number] Room No: : 1945 Patient Type: SDS [...] Taurus Bentley MD On 07/04/2016 10:15 AM GRIND OPERATOR Taurus Bentley M.D. DR/karin TD: 07/02/2016 14:02 CC: Tanmay Mac M.D. us Historical Provider ENDOSCOPY PROCEDURES Eliane l Result from Last 3 Months or Most Recently Relevant to Health Maintenance Insurance [facility] MEDICARE [facility]VANT[facility] MEDIC[facility] Address: [facility] [address] [place] [address] [facility] MEDICARE ADVANTAGE [facility]ICARE Address: [address] [address] [facility] MEDICARE AD[facility]AGE [facility] MEDIC[facility] Address: [address] [address] Advance Directives For more information, please contact: [phone] * Full Code (Latest Code Status on File) Date Activated Date Inactivated Comments 11/28/2019 5:53 AM 12/02/2019 7:50 PM * Full Code Date Activated Date Inactivated Comments 03/25/2019 11:25 PM 03/27/2019 4:59 PM Care Teams Railroad Operating Engineer Relationship Specialty Start Date End Date Tanmay Mac MD [address] [place] [address] PCP - General 08/30/16 Roger De MD [address] [place] [address] Consulting Physician Cardiovascular Disease 03/27/19 Jose Joyce MD [address] [place] [address] Consulting Physician Urology 12/02/19 [place] [id number] [address] Referring Physician Pulmonary Disease 07/26/22
--- OUTSIDE RECORDS SUMMARY | 2024-09-17 13:24 | XMS_ITS | Clinical Summary ---
Author Organization [facility] Address [address] [place] [address] Care Team Providers Care Wood Ski Maker Name Role Phone Tanmay Mac MD Primary Care Provider [phone] Roger De MD Unavailable [phone] Jose Joyce MD Unavailable [phone] Stanley Hurtado MD Unavailable [phone] Allergies Active Allergy Reactions Criticality Noted Date Comments Duloxetine Diarrhea,Other (See comments) Low 02/05/2023 Blood Pressure increase Medications melatonin 5 mg tablet Take 1 tablet (5 mg total) by mouth nightly Active aspirin 81 mg enteric coated tablet Take 1 tablet (81 mg total) by mouth daily 30 tablet 0 Active igmsnjkx-mgo-U X-eqigoaz-bauf in 0.4-300-250 mg-mcg-mcg tabletIndicati ons:Vitamin Deficiency Prevention [...] ntoed. Assessment & Plan (06/21/2024 9:11 AM MAINTENANCE FITTER): WIll switch from ropinirole to mirapex and will follwor esponse. Spinal stenosis of lumbar re gion with neurogenic claudication 06/21/2024 Assessment & Plan (06/21/2024 9:12 AM MAINTENANCE FITTER): Refer for MRI. Pain radiating into the lower extremities. Does much better leaning forward with extended walking. Script given for rollator walker. Dyspepsia 06/21/2024 Assessment & Plan (06/21/2024 9:13 AM MAINTENANCE FITTER): NO evidence of an acute abdomen. No prior EGD. M Most likely body habitus related and while travelling. Stop iron supplemetnation. WIll montiro respnose. Check ultrasound for biliary pathology. Nicotine dependence with current use 04/07/2024 Assessment & Plan (08/13/2024 9:59 AM CDT): MOtivated. Sciprt given for chantix and will follow response. Assessment & Plan (04/07/2024 11:47 AM MAINTENANCE FITTER): Encouraged cutting back. Hospital discharge follow-up 04/07/2024 Assessment & Plan (04/07/2024 11:46 AM MAINTENANCE FITTER): IMahsa FURNITURE REFINISHER have personally reviewed pertinent inpatient and/or ED records, including discharge medications and Clindesk if applicable. This patient's discharge medication list has been reviewed and reconciled with his outpatient medication list and has also been reviewed with patient and/or caregiver. I have noted any changes. BMI 37.0-37.9, adult 02/09/2024 Assessment & Plan (06/21/2024 9:11 AM MAINTENANCE FITTER): ENcourage 150min/week aerobic exericse. Follow response. Assessment & Plan (02/09/2024 9:58 AM CDT): Encoruage 150min/week aerobic exericse. Healthy food chocies. Severe obesity (BMI 35.0-39.9) with comorbidity 02/09/2024 Assessment & Plan (06/21/2024 9:11 AM MAINTENANCE FITTER): Encourage 150min/weeka erobic exercise. WIll follow response. [...] it. Assessment & Plan (06/21/2024 9:11 AM MAINTENANCE FITTER): Contiues on metoprolol XL and apixaban. WIll follow response. Assessment & Plan (04/07/2024 11:48 AM MAINTENANCE FITTER): Rate controlled. Continue metoprolol, eliquis. Continue f/u [...] 08/01/2020 Assessment & Plan (08/01/2020 10:41 AM MAINTENANCE FITTER): Reviewed need to lose weight, reviewed health benefits. Reviewed recommendations for daily intake & activity 20-30 minutes/day. Discussed healthy diet and importance of regular physical activity. Centrilobular emphysema 07/18/2020 Assessment & Plan (08/13/2024 9:59 AM CDT): Codavid f/u with Dr. Hurtado. No increased owkr of breahting. Assessment & Plan (04/07/2024 2:54 PM MAINTENANCE FITTER): No recent exacerbations. Highly encouraged to continue cutting back tobacco. We will also avoid nicotine gum. Red flags reviewed. Assessment & Plan (08/01/2020 10:42 AM MAINTENANCE FITTER): COPD remains stable. [facility] (Dr Mohamud). Discussed monitoring symptoms and use of quick-relief medications; to contact us early in course of exacerbation. Warning signs of respiratory distress were reviewed with Jose Em. Will continue current treatment at this time. Encounter for Medicare annual wellness exam 07/03 Assessment & Plan (08/01/2020 10:42 AM MAINTENANCE FITTER): 1. Eat a healthy diet: focus on lean meats and proteins, more fruits, vegetables and whole grains and low in sugars and fats. Limit red meat and avoid processed meat. 2. Maintain a healthy weight; avoid being overweight. Aim for a normal body mass index (BMI) of 18.5-24.9. Help learning to eat healthier, we can set up appointment with glass sander/jewelry store manager. 3. Have an active lifestyle, strive for [...] hematuria. Assessment & Plan (06/21/2024 9:10 AM MAINTENANCE FITTER): Continue annual f/u with urology. No recurrent hematuria or other abonralities. Assessment & Plan (02/09/2024 9:57 AM CDT): Continue f/u with Dr. Barclay. No evidence fo recurrence. Assessment & Plan (08/01/2020 10:44 AM MAINTENANCE FITTER): Managed by Dr Joyce. Completed BCG 05/2020. Enlarged prostate 12/10/2019 Overview (12/10/2019): Added automatically from request for surgery [id number] Gross hematuria 12/01/2019 Bladder mass 11/26/2019 Overview (11/26/2019): Added automatically from request for surgery [id number] Hematuria 07/13/2019 Abnormal glucose 04/19/2019 Assessment & [...] 03/26/2019 Assessment & Plan (08/01/2020 10:43 AM MAINTENANCE FITTER): The blood pressure is under good control. [...] here. Assessment & Plan (08/08/2022 2:33 PM MAINTENANCE FITTER): We discussed LDL cholesterol goal of less than 70 mg/dL. He has been at goal since 2020. No change in medical regimen here. Assessment & Plan (12/28/2020 8:32 AM CDT): Patient's LDL cholesterol in July was 63. I suggested he continue to work on weight management. Assessment & Plan (08/01/2020 10:40 AM MAINTENANCE FITTER): 06/17/19 JY=677 HDL=39 RL=177 LDL=45 TC/HDL=3.0 08/01/20 KL=877 HDL=36 TJ=381 LDL=63 TC/HDL=3.6 Atorvastatin 40mg daily. Needs to increase activity. The 10-year ASCVD risk score ([place] LESLIE Jr., et al., 2013) is: 23.5% Values [...] flags. Assessment & Plan (06/27/2020 10:28 AM MAINTENANCE FITTER): Patient's LDL cholesterol previously was 45 but [...] medical regimen. Coronary artery disease invo lving [place] coronary artery of [place] heart without angina pectoris 03/26/2019 Overview (08/08/2022): Status post ARETHA to mid LAD and ARETHA to mid RCA on 26 March 2019 (RL). Normal Cardiolite on 05 July 2020. LVEF of 69%. Assessment & Plan (08/13/2024 9:58 AM CDT): Secondarypernvetion. WIll cotinue on antiplatelet and statin tehrpay. Cardiac cath UTD. Assessment & Plan (06/21/2024 9:10 AM MAINTENANCE FITTER): Seconddary prevneiton. Continues on asa and statin [...] joking. Assessment & Plan (08/08/2022 2:33 PM MAINTENANCE FITTER): We discussed cardiac catheterization and interventional result [...] modification. Assessment & Plan (08/01/2020 10:42 AM MAINTENANCE FITTER): Managed by Dr Wallace at [facility] Assessment & Plan (06/27/2020 10:29 AM MAINTENANCE FITTER): Patient's episode of chest discomfort may represent [...] 05/07/2018 Assessment & Plan (05/07/2018 2:15 PM MAINTENANCE FITTER): Will obtain CT abdomen and pelvis for surgical planning due to previous hernia repair with mesh. Keratosis, senilis 02/26/2017 Lumbar radiculopathy 01/14/2017 Psoriasis 05/22/2016 Assessment & Plan (06/21/2024 9:10 AM MAINTENANCE FITTER): Referral to dermatology for second opinion. Prior cemetery laborer tried to prescribe skyrizi but copay was not feasible. Continues on gold valdivia psoriasis therapy. Assessment & Plan (02/09/2024 9:57 AM CDT): Trial of triamcinolone sent to pharmacy. No s/s of secondary bacterial infection. Eczema 05/22/2016 Cyst of breast 09/27/2015 Overview (09/05/2016): Breast cyst SVT (supraventricular tachycardia) ([facility]) Overview (08/08/2022): Status post ablation of AVNRT [...] sinus. Assessment & Plan (08/08/2022 2:36 PM MAINTENANCE FITTER): Patient could not remember the location or the physician so we had to dig it up. Ever since the ablation, he has not had any palpitations. Obstructive sleep apnea syndrome 01/17/2014 Overview (09/05/2016): Obstructive sleep apnea Assessment & Plan (02/09/2024 9:56 AM CDT): Reviewed import of nightly CPAP. WIll follow respnose. Decreased fatigue and will montior resopnse. Assessment & Plan (08/01/2020 10:44 AM MAINTENANCE FITTER): Reports 100% compliance w/CPAP. Hypothyroidism 01/17/2014 Overview (09/05/2016): Hypothyroidism Assessment & Plan (02/09/2024 9:57 AM CDT): Clinicaly and chemically euthryoid. No change at the present time. Assessment & Plan (08/01/2020 10:50 AM MAINTENANCE FITTER): TSH/T4 ordered; will contact with results when [...] 05/07/20182020 Assessment & Plan (05/07/2018 2:16 PM MAINTENANCE FITTER): Ct will also evaluate for any abnormality, [...] Type Department Care Team Description 09/16/2024 Telephone [place] [facility] at [facility] [address] [facility] [address] [place] [address] Ninfa Mchugh MA 09/15/2024 7:00 AM CDT Therapy [facility] [place] [address] [place] [address] Chelsie Chauhan, PT Piriformis syndrome of left side 09/15/2024 Plan of Care Documentation [facility] [address] [place] [address] 08/26/2024 1:08 PM CDT - 08/26/2024 11:59 PM CDT Hospital Encounter [facility] [address] [place] [address] [address], [address] [place] [address] Taya Ivory NP Lumbar radiculopathy (Primary Dx); Spinal stenosis of lumbar region without neurogenic claudication; Left hip pain Discharge Disposition: Discharge to home or self care 08/13/2024 9:30 AM CDT Office Visit [facility] [address] [phone] Tanmay Mac MD Coronary artery disease involving [place] coronary artery of [place] heart without angina pectoris (Primary Dx); Malignant neoplasm of urinary bladder, unspecified site (HCC); RLS (restless legs syndrome); Nicotine dependence with current use; Spinal stenosis of lumbar region without neurogenic claudication; Impacted cerumen of left ear; Centrilobular emphysema (HCC); BMI 37.0-37.9, adult; Obesity (BMI 35.0-39.9 without comorbidity) 07/27/2024 4:53 PM MAINTENANCE FITTER - 07/27/2024 11:59 PM MAINTENANCE FITTER Hospital Encounter [facility] [address] [place] [address] Personal history of nicotine dependence Discharge Disposition: Discharge to home or self care 07/23/2024 Telephone [facility] [address] [place] [address] Tracey Roberts RN 07/23/2024 Telephone [facility] [address] [place] [address] Tracey Roberts RN 07/19/2024 2:30 PM MAINTENANCE FITTER Office Visit [facility] at [address] [place] [address] Stanley Fitzgerald DO Contusion of right knee, initial encounter (Primary Dx) 07/19/2024 7:39 AM MAINTENANCE FITTER - 07/19/2024 11:59 PM MAINTENANCE FITTER Hospital Encounter [facility] [address] [place] [address] Spinal stenosis of lumbar region with neurogenic claudication Discharge Disposition: Discharge to home or self care 07/19/2024 7:39 AM MAINTENANCE FITTER - 07/19/2024 11:59 PM MAINTENANCE FITTER Hospital Encounter [facility] [address] [place] [address] Dyspepsia Discharge Disposition: Discharge to home or self care 06/28/2024 Telephone [facility] [address] [address] [place] [phone] Felipe Garrett MD 06/23/2024 Orders Only [facility] Health Information Management [address] [place] [address] Scanning, Provider 06/21/2024 8:30 AM MAINTENANCE FITTER Office Visit [facility] [address] [phone] Tanmay Mac MD Dyspepsia (Primary Dx); Spinal stenosis of lumbar region with neurogenic claudication; Coronary artery disease involving [place] coronary artery of [place] heart without angina pectoris; Malignant neoplasm of urinary bladder, unspecified site (HCC); Paroxysmal atrial fibrillation (HCC); RLS (restless legs syndrome); BMI 37.0-37.9, adult; Severe obesity (BMI 35.0-39.9) with comorbidity (HCC); Psoriasis from Last 3 Months Immunizations Immunization Administration Dates Next Due Influenza, [...] disease Coronary artery disease Hx Other Medical 2008 bundle branch t achacardia; Comments: PLD 01/17/2014 [...] (chronic obstructive pu lmonary disease) (HCC) Cancer (HCC) bladder Carotid artery disease Peripheral neuropathy Emphysema of lung (HCC) Family [...] Father Augusto Em Maternal Grandfather Darrick Kasper Alive Mother Tena Em Other 1 Other 2 [...] on file Legal Sex Male 10:06 AM MAINTENANCE FITTER Gender Identity Male 04/08/2021 3:39 PM MAINTENANCE FITTER Sexual Orientation Straight 04/08/2021 3: 39 PM MAINTENANCE FITTER Obstetrics History Last Filed Vital Signs Vital [...] 08/13/2024 9:13 AM CDT Plan of Treatment Health Maintenance Due Date Last Done Comments Hepatitis B Screening 09/25/1963 DTaP/Tdap/Td Vaccine (1 - Tdap) 07/05/2016 7 Covid-19 Vaccine (2023-2 5 season) 2024 04/06/2021, 08/21/2020, 07/13/2020 Well Visit 65+ 02/08/2025 02/09/2024, 07/04, 08/01/2020, Additional history exists Lung Cancer Screening 07/28/2025 07/27/2024 , 07/10/2023, 07/05/2022, Additional history exists Fall Risk Assessment 08/13/2025 08/13/2024, 06/21/2024, 02/23/2024, Additional history exists Depression Screening 08/26/2025 08/26/2024, 08/26/2024, 08/13/2024, Additional history exists Colon Cancer Screening-CT Colonography [...] Completed 04/08/2024 Medical Devices Implanted Type Area Loan Clerk Device Identifier Shelf Expiration Date Model / Serial / Lot Medtronic Inc [id number] Progrip 15x9cm Self Women'S Apparel Salesperson Rectangle Mesh Surgical Polyester Hernia - [id number] Implanted:Qty: 1 on 06/30/2018 by Shane Garcia MD at [facility] Mesh Right: Groin Medtronic Inc 07/30/2022 [id number] / / [id number] [employer] [id number] System Coronary Stent Xience Megha Everolimus L18 Mm Od3.25 Mm Rapid Exchange - [id number] Implanted:Qty: 1 on 03/26/2019 by Roger De MD at [facility] Stent [employer] 09/09/2019 [id number] [place] [employer] Kirk [id number] Synergy 3.5mm 16mm 144cm Radiopaque 1 Access Port Inflation Lumen - [id number] Implanted:Qty: 1 on 03/26/2019 by Roger De MD at [facility] Stent [place] [employer] Kirk 12/29/2020 [id number] / / [id number] Daig Kirk[employer] [id number] Angio-Seal Evolution 6fr .035in Guidewire Bypass Tube Suture - [id number] Implanted:Qty: 1 on 03/26/2019 by Roger De MD at [facility] Multichannel/[employer] 11/30/2019 [id number] / / [id number] Procedures Procedure Name Priority Date/Time Associated Diagnosis Comments CT LUNG CANCER SCREENING Schedule Routine, Read Routine (OP Routine) 07/27/2024 5:22 PM MAINTENANCE FITTER Personal history of nicotine dependence US ABDOMEN COMPLETE Schedule Routine, Read Routine (OP Routine) 07/19/2024 10:17 AM MAINTENANCE FITTER Dyspepsia MRI LUMBAR SPINE WO CONTRAST Schedule Routine, Read Routine (OP Routine) 07/19/2024 9:22 AM MAINTENANCE FITTER Spinal stenosis of lumbar region with neurogenic claudication SCAN - RADIOLOGY/IMAGING 06/23/2024 HEPATITIS C ANTIBODY Routine 04/08/2024 9:[address] ABDOMEN PELVIS W CONTRAST Today 05/15/2018 8:53 AM MAINTENANCE FITTER Recurrent right inguinal hernia COLONOSCOPY 07/02/2016 12:00 AM MAINTENANCE FITTER from Last 3 Months or Most Recently Relevant to Health Maintenance Results * CT Lung Cancer Screening (07/27/2024 5:22 PM MAINTENANCE FITTER) Anatomical Region Laterality Modality Chest N/A Computed Tomogra phy 08/01/2024 7:47 AM MAINTENANCE FITTER Narrative 08/01/2024 7:54 AM MAINTENANCE FITTER EXAM DESCRIPTION: CT LUNG CANCER SCREENING REASON [...] Electronically signed by Aldo Gardner M.D. LB: LB Report ID: [id number] Reading Location: [place] [address] Procedure Note Aldo Gardner MD - 08/01/2024 [...] Electronically signed by Aldo Gardner M.D. LB: LB Report ID: [id number] Reading Location: [place] [address] us Stanley Hurtado MD IMG CT PROCEDURES Final Result * US Abdomen Complete (07/19/2024 10:17 AM MAINTENANCE FITTER) Anatomical Region Laterality Modality Abdomen N/A Ultrasound 07/21/2024 7:00 AM MAINTENANCE FITTER Narrative 07/21/2024 7:03 AM MAINTENANCE FITTER EXAM DESCRIPTION: US ABDOMEN COMPLETE REASON FOR [...] Jac Boyce M.D. CH: ARIANNE Report ID: [id number] Reading Location: [id number] Procedure Note Jac Boyce Jr., MD - [...] Electronically signed by Jac Boyce M.D. CH: Report ID: [id number] Reading Location: [id number] us Tanmay Mac MD IMG US PROCEDURES Final R esult * MRI Lumbar Spine WO Contrast (07/19/2024 9:22 AM MAINTENANCE FITTER) Anatomical Region Laterality Modality Spine N/A Magnetic Resonan ce 07/19/2024 11:5 8 AM MAINTENANCE FITTER Narrative 07/19/2024 12:03 PM MAINTENANCE FITTER EXAM DESCRIPTION: MRI LUMBAR SPINE WO CONTRAST [...] CT urogram dated 07/14/2021. FINDINGS: SEGMENTATION: 5 vpv-okl-dzkxvta lumbar type vertebral bodies. ALIGNMENT: Mild retrolisthesis of L2 on L3, L3 on L4 and L5 on S1. VERTEBRAE: No acute compression fracture in the lumbar spine. Hshh-sv-kedrucer endplate degenerative changes and marginal spur formation. [...] facet arthropathy. No significant spinal canal stenosis. Wwkd-rr-lqfyvpeh left and mild right neural foraminal narrowing. Portion of the disc/marginal spur abuts the undersurface of the exiting L5 nerve roots. VISUALIZED UPPER ABDOMEN: Partially imaged kidneys with rounded T2 hyperintense foci in both sides are incompletely characterized on this MRI, please refer to the dedicated CT urogram report dated 07/14/2021. IMPRESSION: 1. Lphj-xk-bcptkwim lumbar disc degeneration with thickened ligamentum flavum [...] Jelani Bishop D.O. AP: AP Report ID: [id number] Reading Location: [place] [address] Procedure Note Jelani Bishop, DO - 07/19/2024 [...] CT urogram dated 07/14/2021. FINDINGS: SEGMENTATION: 5 xqu-mib-egvtbiy lumbar type vertebral bodies. ALIGNMENT: Mild retrolisthesis of L2 on L3, L3 on L4 and L5 on S1. VERTEBRAE: No acute compression fracture in the lumbar spine. Nvvr-cd-omksxlku endplate degenerative changes and marginal spurformation. Rounded [...] Bilateral facetarthropathy. No significant spinal canal stenosis. Ngje-cp-ozbrrbpe left and mildright neural foraminal narrowing. Portion of the disc/marginal spur abuts the undersurface of the exiting L5 nerve roots. VISUALIZED UPPER ABDOMEN: Partially imaged kidneys with rounded T2 hyperintense foci in both sides are incompletely characterized on thisMRI, please refer to the dedicated CT urogram report dated 07/14/2021. IMPRESSION: 1. Krua-bf-xdgtjwxi lumbar disc degeneration with thickened ligamentum flavum and more advanced facet arthropathy has slightly worsened whencompared to the previous lumbar spine MRI dated 01/17/2017 as described. There isno high-grade spinal canal stenosis. 2. Neural foraminal stenosis and additional findings as above. THIS IS AN ELECTRONICALLY VERIFIED FINAL REPORT 07/19/2024 12:03 PM - Electronically signed by Jelani Bishop D.O. AP: AP Report ID: [id number] Reading Location: [place] [address] us Tanmay Mac MD IMG MRI PROCEDURES Final Result * SCAN - RADIOLOGY/IMAGING (06/23/2024) Anatomical Region Laterality Modality Other us Provider Scanning Final Result * Hepatitis C antibody Blood (04/08/2024 9:50 AM MAINTENANCE FITTER) Hep C Ab Nonreactive Nonreactive Comment: Interpretive [...] last revised on 2019. Testing performed by: [facility], [address] [place] [address], [place] [address] Blood 04/08/2024 9:50 AM MAINTENANCE FITTER 04/08/2024 2:23 PM MAINTENANCE FITTER us Tim Robison MD LAB MICROBIOLOGY - [facility] AL ORDERABLES Final Result RAFFAELE AREVALO CLEMMONS [address] [facility] Department [place] [address] * CT Abdomen Pelvis W Contrast (05/15/2018 8:53 AM MAINTENANCE FITTER) Anatomical Region Laterality Modality Body N/A Computed Tomogra phy 05/15/2018 8:55 AM MAINTENANCE FITTER Impressions 05/15/2018 8:58 AM MAINTENANCE FITTER 1. Fat-containing right inguinal hernia. 2. Bosniak 1 bilateral renal cysts. 3. Diverticulosis. Electronically signed by: Ahsan Ozuna M.D. Narrative 05/15/2018 8:58 AM MAINTENANCE FITTER EXAM: CT ABDOMEN PELVIS W CONTRAST HISTORY: [...] Electronically signed by: Ahsan Ozuna M.D. Karen Eyerasheeda FURNITURE REFINISHER IMG CT PROCEDURES Final Result * COLONOSCOPY (07/02/2016 12:00 AM MAINTENANCE FITTER) Anatomical Region Laterality Modality Other Narrative 07/02/2016 12:00 AM MAINTENANCE FITTER Ordered by an unspecified provider. Procedure Note Provider, MD Donis - 07/02/2016 12:00 AM CST PROCEDURE REPORT Patient: JOSE EM Service Date: 07/02/2016 Account: [id number] Room No: : 1945 Patient Type: [facility] Attend.: Taurus Bentley M.D. Admit Date: 07/02/2016 [...] Taurus Bentley MD On 07/04/2016 10:15 AM MAINTENANCE FITTER Taurus Bentley M.D. DR/karin TD: 07/02/2016 14:02 CC: Tanmay Mac M.D. Historical Provider ENDOSCOPY PROCEDURES Eliane l Result from Last 3 Months or Most Recently Relevant to Health Maintenance Insurance MEDICARE ADVANTAGE Member Subscriber Plan / Payer (Ef fective 2022-Present) Name:Jose Em Relation to Subscriber:Self Name:Jose Em Payer ID:[id number] (NAIC) Type:[facility] MED[facility] Address: [place] [id number] MEDICARE ADVANTAGE Member Subscriber Plan / Payer (Ef fective 2022-Present) Name:Jose Em Relation to Subscriber:Self Name:Jose Em Payer ID:[id number] (NAIC) Type:[facility] MEDICARE Address: [place] [id number] [place] [id number] MEDICARE ADVANTAGE Advance Directives For more information, please contact: [phone] * Full Code (Latest Code Status on File) Date Activated Date Inactivated Comments 11/28/2019 5:53 AM 12/02/2019 7:50 PM * Full Code Date Activated Date Inactivated Comments 03/25/2019 11:25 PM 03/27/2019 4:59 PM Care Teams Wood Ski Maker Relationship Specialty Start Date End Date Tanmay Mac MD [address] [place] [address] PCP - General 08/30/16 Roger De MD [address] [place] [address] Consulting Physician Cardiovascular Disease 03/27/19 Jose Joyce MD [address] [place] [address] Consulting Physician Urology 12/02/19 [place] [id number] [address] Referring Physician Pulmonary Disease 07/26/22
--- OUTSIDE RECORDS SUMMARY | 2024-09-17 13:24 | XMS_ITS | Clinical Summary ---
Author Organization [facility] Address [address] [place] [address] Phone Care Team Providers Care Tar Kettle Runner Name Role Phone Unavailable Unavailable Unavailable Reason [...]
--- OUTSIDE RECORDS SUMMARY | 2024-09-17 13:24 | XMS_ITS ---
Author Organization [facility] Address [address] [place] [address] Care Team Providers Care Drug Abuse Social Worker Name Role Phone Tanmay Mac MD Primary Care Provider [phone] Roger De MD Unavailable [phone] Jose Joyce MD Unavailable [phone] Stanley Hurtado MD Unavailable Active Problems Problem Noted Date Diagnosed Date [...] ntoed. Assessment & Plan (06/21/2024 9:11 AM ACCOUNT CONSULTANT): WIll switch from ropinirole to mirapex and will follwor esponse. Spinal stenosis of lumbar re gion with neurogenic claudication 06/21/2024 Assessment & Plan (06/21/2024 9:12 AM ACCOUNT CONSULTANT): Refer for MRI. Pain radiating into the lower extremities. Does much better leaning forward with extended walking. Script given for rollator walker. Dyspepsia 06/21/2024 Assessment & Plan (06/21/2024 9:13 AM ACCOUNT CONSULTANT): NO evidence of an acute abdomen. No prior EGD. M Most likely body habitus related and while travelling. Stop iron supplemetnation. WIll montiro respnose. Check ultrasound for biliary pathology. Nicotine dependence with current use 04/07/2024 Assessment & Plan (08/13/2024 9:59 AM CDT): MOtivated. Sciprt given for chantix and will follow response. Assessment & Plan (04/07/2024 11:47 AM ACCOUNT CONSULTANT): Encouraged cutting back. Hospital discharge follow-up 04/07/2024 Assessment & Plan (04/07/2024 11:46 AM ACCOUNT CONSULTANT): Mahsa Justice, CHIEF TECHNOLOGY OFFICER have personally reviewed pertinent inpatient and/or ED records, including discharge medications and [employer] if applicable. This patient's discharge medication list has been reviewed and reconciled with his outpatient medication list and has also been reviewed with patient and/or caregiver. I have noted any changes. BMI 37.0-37.9, adult 02/09/2024 Assessment & Plan (06/21/2024 9:11 AM ACCOUNT CONSULTANT): ENcourage 150min/week aerobic exericse. Follow response. Assessment & Plan (02/09/2024 9:58 AM CDT): Encoruage 150min/week aerobic exericse. Healthy food chocies. Severe obesity (BMI 35.0-39.9) with comorbidity 02/09/2024 Assessment & Plan (06/21/2024 9:11 AM ACCOUNT CONSULTANT): Encourage 150min/weeka erobic exercise. WIll follow response. [...] it. Assessment & Plan (06/21/2024 9:11 AM ACCOUNT CONSULTANT): Contiues on metoprolol XL and apixaban. WIll follow response. Assessment & Plan (04/07/2024 11:48 AM ACCOUNT CONSULTANT): Rate controlled. Continue metoprolol, eliquis. Continue f/u [...] 08/01/2020 Assessment & Plan (08/01/2020 10:41 AM ACCOUNT CONSULTANT): Reviewed need to lose weight, reviewed health benefits. Reviewed recommendations for daily intake & activity 20-30 minutes/day. Discussed healthy diet and importance of regular physical activity. Centrilobular emphysema 07/18/2020 Assessment & Plan (08/13/2024 9:59 AM CDT): Cojgiaue f/u with Dr. Hurtado. No increased owkr of breahting. Assessment & Plan (04/07/2024 2:54 PM ACCOUNT CONSULTANT): No recent exacerbations. Highly encouraged to continue cutting back tobacco. We will also avoid nicotine gum. Red flags reviewed. Assessment & Plan (08/01/2020 10:42 AM ACCOUNT CONSULTANT): COPD remains stable. [facility] (Dr Mohamud). Discussed monitoring symptoms and use of quick-relief medications; to contact us early in course of exacerbation. Warning signs of respiratory distress were reviewed with Jarek Em. Will continue current treatment at this time. Encounter for Medicare annual wellness exam 07/03 Assessment & Plan (08/01/2020 10:42 AM ACCOUNT CONSULTANT): 1. Eat a healthy diet: focus on lean meats and proteins, more fruits, vegetables and whole grains and low in sugars and fats. Limit red meat and avoid processed meat. 2. Maintain a healthy weight; avoid being overweight. Aim for a normal body mass index (BMI) of 18.5-24.9. Help learning to eat healthier, we can set up appointment with oil burner journeyman/cash specialist. 3. Have an active lifestyle, strive for [...] hematuria. Assessment & Plan (06/21/2024 9:10 AM ACCOUNT CONSULTANT): Continue annual f/u with urology. No recurrent hematuria or other abonralities. Assessment & Plan (02/09/2024 9:57 AM CDT): Continue f/u with Dr. Barclay. No evidence fo recurrence. Assessment & Plan (08/01/2020 10:44 AM ACCOUNT CONSULTANT): Managed by Dr Joyce. Completed BCG 05/2020. Enlarged prostate 12/10/2019 Overview (12/10/2019): Added automatically from request for surgery [id number] Gross hematuria 12/01/2019 Bladder mass 11/26/2019 Overview (11/26/2019): Added automatically from request for surgery [id number] Hematuria 07/13/2019 Abnormal glucose 04/19/2019 Assessment & [...] 03/26/2019 Assessment & Plan (08/01/2020 10:43 AM ACCOUNT CONSULTANT): The blood pressure is under good control. [...] here. Assessment & Plan (08/08/2022 2:33 PM ACCOUNT CONSULTANT): We discussed LDL cholesterol goal of less than 70 mg/dL. He has been at goal since 2020. No change in medical regimen here. Assessment & Plan (12/28/2020 8:32 AM CDT): Patient's LDL cholesterol in July was 63. I suggested he continue to work on weight management. Assessment & Plan (08/01/2020 10:40 AM ACCOUNT CONSULTANT): 06/17/19 CX=683 HDL=39 NQ=228 LDL=45 TC/HDL=3.0 08/01/20 XU=954 HDL=36 IN=794 LDL=63 TC/HDL=3.6 Atorvastatin 40mg daily. Needs to increase activity. The 10-year ASCVD risk score ([place] NELSON Jr., et al., 2013) is: 23.5% [...] flags. Assessment & Plan (06/27/2020 10:28 AM ACCOUNT CONSULTANT): Patient's LDL cholesterol previously was 45 but [...] medical regimen. 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 Normal Cardiolite on 05 July 2020. LVEF of 69%. Assessment & Plan (08/13/2024 9:58 AM CDT): Secondarypernvetion. WIll cotinue on antiplatelet and statin tehrpay. Cardiac cath UTD. Assessment & Plan (06/21/2024 9:10 AM ACCOUNT CONSULTANT): Seconddary prevneiton. Continues on asa and statin [...] joking. Assessment & Plan (08/08/2022 2:33 PM ACCOUNT CONSULTANT): We discussed cardiac catheterization and interventional result [...] modification. Assessment & Plan (08/01/2020 10:42 AM ACCOUNT CONSULTANT): Managed by Dr Wallace at [facility] Assessment & Plan (06/27/2020 10:29 AM ACCOUNT CONSULTANT): Patient's episode of chest discomfort may represent [...] 05/07/2018 Assessment & Plan (05/07/2018 2:15 PM ACCOUNT CONSULTANT): Will obtain CT abdomen and pelvis for surgical planning due to previous hernia repair with mesh. Keratosis, senilis 02/26/2017 Lumbar radiculopathy 01/14/2017 Psoriasis 05/22/2016 Assessment & Plan (06/21/2024 9:10 AM ACCOUNT CONSULTANT): Referral to dermatology for second opinion. Prior medical chief technician tried to prescribe skyrizi but copay was not feasible. Continues on gold valdivia psoriasis therapy. Assessment & Plan (02/09/2024 9:57 AM CDT): Trial of triamcinolone sent to pharmacy. No s/s of secondary bacterial infection. Eczema 05/22/2016 Cyst of breast 09/27/2015 Overview (09/05/2016): Breast cyst SVT (supraventricular tachycardia) ([facility]) Overview (08/08/2022): Status post ablation of [...] sinus. Assessment & Plan (08/08/2022 2:36 PM ACCOUNT CONSULTANT): Patient could not remember the location or the physician so we had to dig it up. Ever since the ablation, he has not had any palpitations. Obstructive sleep apnea syndrome 01/17/2014 Overview (09/05/2016): Obstructive sleep apnea Assessment & Plan (02/09/2024 9:56 AM CDT): Reviewed import of nightly CPAP. WIll follow respnose. Decreased fatigue and will montior resopnse. Assessment & Plan (08/01/2020 10:44 AM ACCOUNT CONSULTANT): Reports 100% compliance w/CPAP. Hypothyroidism 01/17/2014 Overview (09/05/2016): Hypothyroidism Assessment & Plan (02/09/2024 9:57 AM CDT): Clinicaly and chemically euthryoid. No change at the present time. Assessment & Plan (08/01/2020 10:50 AM ACCOUNT CONSULTANT): TSH/T4 ordered; will contact with results when received. Reviewed med SE & scheduling. Reviewed sxs hypo/hyperthyroidism. No changes at this time. Has not had TFTs checked since 2018. Current Treatment and Therapy Plans No current plan information found. Past Treatment and Therapy Plans No past plan information found. Lifetime Dose Tracking * Chemical Lifetime Dose Automatic Entry Manual Entr y DLP 432.4 mGycm 432.4 mGycm 0 mGycm CTDIvol 11.22 mGy 11.22 mGy 0 mGy Resolved Problems Problem Noted Date Diagnosed Date Resolved Date BMI 36.0-36.9,adult 08/01/2020 08/02/19 21 Urine troubles 07/13/2019 07/18/2020 Severe obesity (BMI 35.0-39. 9) with comorbidity 07/02/2019 07/18/2020 Smokeless tobacco use 03/26/20192020 Right testicular pain 05/07/20182020 Assessment & Plan (05/07/2018 2:16 PM ACCOUNT CONSULTANT): Ct will also evaluate for any abnormality, [...]
--- OUTSIDE RECORDS SUMMARY | 2024-09-17 13:24 | XMS_ITS | Clinical Summary ---
Author Organization [facility] Address [address] [place] [address] Phone Care Team Providers Care Otr Refrigerated Cdl Truck Driver Name Role Phone Unavailable Unavailable Unavailable Reason [...]
--- OUTSIDE RECORDS SUMMARY | 2024-09-17 13:24 | XMS_ITS | Clinical Summary ---
Author Organization [facility] Address [address] [place] [address] Phone Care Team Providers Care Neurology Technologist Name Role Phone Unavailable Unavailable Unavailable Reason [...]
--- OUTSIDE RECORDS SUMMARY | 2024-09-17 13:26 | XMS_ITS | CONTINUITY OF CARE DOCUMENT ---
Author Name ryan, ryan Address Unknown Organization [facility] Office Address [address] [place] [address] Phone [phone] Care Team Providers Care [facility] Name Role Phone Nahum Huffman DO Unavailable CAROLYNE MCARTHUR, IVELISSE Cazares Unavailable [phone] ADILENE BRAGA MD Unavailable [phone] PROBLEMS Condition Status Date Provider Notes Sleep apnea, obstructive; on CPAP active Alyssa Barrios RN SVT, recurrent/refractory active Catherine Barrios RN Atrial flutter active Nahum Hfufman DO ENCOUNTERS Date Type Provider Location Encounter Diagnosis - In-person encounter Office Visit Nahum Huffman DO Psychiatric Office Atrial flutter VITAL SIGNS Date Observation [...] Payer name Policy type / Coverage type [place] [employer] party ID [employer] MEDICARE COMPLETE HMO Other [id number] TREATMENT PLAN Date Name Performer Cardiology/EP:s/p AV NRT & Atrial FLultter ablation 02/23/15 Nahum Huffman DO Cardiology/EP:s/p AV NRT & Atrial Flultter ablation 02/23/15 n o recurrences Nahum Huffman DO Cardiology/EP:compliant with use Nahum Huffman DO Cardiology/EP Nahum Huffman DO HISTORY OF PROCEDURES Procedure Date Procedure Name Provider Procedure Notes S tatus SNOMED-CT: 989444960 Smoking Cessation Counseling Nahum Huffman DO completed EKG Nahum Huffman DO comple johnny SNOMED-CT: 895956799 [id number] Current Medications Documented Nahum Huffman DO completed
[2024-09-17 13:31] VITALS: BP 145/75; PULSE 65; RESP 18; TEMP 36.6; O2SAT 97
--- NOTE | 2024-09-17 14:10 | ED.URI ---
HPI - URI/Sore Throat General Chief Complaint: Upper Respiratory Infection Stated Complaint: Chest Congestion/Cough Time Seen by Provider: 09/17/24 14:00 Source: patient, RN notes reviewed and old records reviewed Mode of arrival: ambulatory Limitations: no limitations History of Present Illness HPI Narrative: 78 year old male who presets to express care with complaints of having sore throat starting on Friday and having non productive cough with some chest tightness with cough also. Patient reports no shortness of breath has been taking Tylenol and some Expectorant for his symptoms, denies any fevers chills sweats or any body aches. Patient reports that grand-daughter recently had bronchitis. He reports that he did home COVID test which was negative MD elicited complaint: cough (chest congestion) and sore throat Onset (ago): day(s) (day 3 of symptoms) Severity: moderate Description of mucous: clear Able to tolerate fluids by mouth: Yes Treatments prior to arrival: acetaminophen and other (expectorant) Related Data Home Medications ?Medication ?Instructions ?Recorded ?Confirmed ?Last Taken ?Type aspirin 81 mg tablet 81 mg PO DAILY 04/20/21 04/20/21 Unknown History atorvastatin 40 mg tablet 40 mg PO DAILY 04/20/21 09/17/24 Unknown History levothyroxine 150 mcg tablet 150 mcg PO DAILY 04/20/21 09/17/24 Unknown History naproxen 500 mg tablet 500 mg PO PRN PRN Pain 04/20/21 04/20/21 Unknown History nitroglycerin 0.4 mg sublingual 0.4 mg sublingual PRN PRN Chest 04/20/21 04/20/21 Unknown History tablet Pain ramipril 10 mg capsule 10 mg PO DAILY 04/20/21 09/17/24 Unknown History ropinirole 2 mg tablet 2 mg PO DAILY 04/20/21 06/23/24 Unknown History sildenafil 25 mg tablet 25 mg PO DAILY PRN Erectile 04/20/21 04/20/21 Unknown History Dysfunction amlodipine 5 mg tablet 5 mg PO DAILY 06/23/24 09/17/24 Unknown History apixaban 5 mg tablet (Eliquis) 5 mg PO Q12H 06/23/24 09/17/24 Unknown History metoprolol succinate 25 mg 25 mg PO Q24H 06/23/24 09/17/24 Unknown History tablet,extended release 24 hr ropinirole 4 mg tablet 4 mg PO QPM 06/23/24 Unknown History pramipexole 1 mg tablet mg 09/17/24 Unknown History varenicline tartrate 0.5 mg (11)-1 ea 09/17/24 Unknown History mg (42) tablets in a dose pack Allergies Allergy/AdvReac Type Severity Reaction Status Date / Time No Known Allergies Allergy Verified 09/17/24 13:32 Review of Systems Review of Systems: CONSTITUTIONAL: Denies malaise, chills, sweats, or fever. EYES: Denies visual changes, redness, or discharge. ENT: Reports rhinorrhea, congestion,no sinus pain, no otalgia and positive for sore throat. CARDIOVASCULAR: Denies chest pain, palpitations, or edema. RESPIRATORY: Reports nonproductive cough.? Denies dyspnea, states some tightness chest with cough and cough worse when lying down. GASTROINTESTINAL: Denies abdominal pain, nausea, vomiting, diarrhea SKIN: Denies rash or itching. MUSCULOSKELETAL: Denies myalgia. NEUROLOGIC: Denies headache. All systems reviewed & are unremarkable except as noted in HPI and below PMFSH Past Medical History Medical History (Updated 09/18/24 @ 10:56 by Ana Cool NP) Paroxysmal A-fib on blood thinner History of bladder cancer High cholesterol Hypertension COPD (chronic obstructive pulmonary disease) Surgical History Surgical History (Updated 09/18/24 @ 10:51 by Ana Cool NP) H/O bilateral inguinal hernia repair History of cardiac radiofrequency ablation History of prostate surgery History of bladder surgery Family History Family History Mother Family history non-contributory Social History Social History (Updated 09/18/24 @ 10:52 by Ana Cool NP) Smoking packs per day: 1 Smoking cigarettes per day: 20.0 Years smoked: 50 Smoking pack-years: 50.00 Smoking status: Former smoker Tobacco type: cigarettes Living arrangements: with family Gender identity (if verbalized by the patient): Male Sexual Orientation (if Verbalized by the Patient): Straight or Heterosexual Spiritual care concerns: No Comments At time of signature, agree with nursing past medical, surgical, social and family history. There is no relevant family history pertinent to the presenting complaint Exam Narrative: GENERAL: Well-appearing, well-nourished, and in no acute distress. HEAD: Normocephalic EYES: PERRLA, conjunctivae clear ENT: Nares clear, turbinates edematous and erythematous, clear discharge. Mucous membranes moist. TM pearly elam with dull light reflex bilaterally; no tragal tenderness. Oropharynx erythematous without lesions. Tonsils not enlarged and without exudate, no drooling, no hoarseness, no trismus, uvula red and swollen, post nasal drainage NECK: Supple. No lymphadenopathy CHEST: Clear to auscultation, breath sounds equal. No wheezing, rhonchi, rales, or stridor. No respiratory distress, speaks in full sentences.cough SAO2 97% on room air HEART: Regular rate and rhythm. No murmur heard. SKIN: Warm, dry, no rash. NEURO: Alert and oriented x3. PSYCH: Normal mood and affect Course Course Emergency Course: Patient is aware of diagnosis, understands and agrees to treatment plan.? Anticipatory guidance given.? Patient agrees to follow-up as directed and is aware of reasons to seek care at the emergency department. Portions of this record may have been created with voice recognition software Level of Care: Express Care Visit Vital Signs Vital signs: Vital Signs Temperature 36.6 C 09/17/24 13:31 Pulse Rate 65 09/17/24 13:31 Respiratory Rate 18 09/17/24 13:31 Blood Pressure 145/75 H 09/17/24 13:31 Pulse Oximetry 97 09/17/24 13:31 Oxygen Delivery Room Air 09/17/24 13:31 Temperature 36.6 C 09/17/24 13:31 Pulse Rate 65 09/17/24 13:31 Respiratory Rate 18 09/17/24 13:31 Blood Pressure 145/75 H 09/17/24 13:31 Pulse Oximetry 97 09/17/24 13:31 Oxygen Delivery Room Air 09/17/24 13:31 Reviewed MDM - URI/Sore Throat MDM Narrative Medical decision making narrative: Differential diagnosis considered: Rose virus, strep pharyngitis, allergic rhinitis, upper respiratory tract infection, sinusitis, rhinosinusitis, nasopharyngitis. viral pharyngitis, otitis media, otitis externa, pneumonia, bronchitis, viral cough syndrome, viral syndrome, and influenza.? Exam findings show no acute concerns or changes; patient is non-toxic appearing and is in no distress.? Patient is appropriate for outpatient treatment and follow-up. Differential Diagnosis Differential diagnosis: Likely upper respiratory infection, sinusitis, viral infection, bronchitis, pharyngitis and other (strep pharyngitis) Medical Records Attestation: I reviewed the patient's medical records. Lab Data Attestation: I reviewed the patient's lab results. Lab results narrative: strep screen negative culture sent Labs: Lab Results 09/17/24 Range/Units 14:25 POC Grp A Strep Screen Negative (Negative) Critical Care Time Critical Care Time Critical Care Time: No Discharge Plan Discharge Clinical Impression: URI, acute Pharyngitis Qualifiers: Pharyngitis/tonsillitis etiology: unspecified etiology Qualified Code(s): J02.9 - Acute pharyngitis, unspecified Patient Disposition: Home Condition: Stable Instructions: Antibiotic Form Additional Instructions: Increase fluids especially juices and water [id number] cough and cold medicine of your choice for your symptoms Zyrtec Claritin Tootie daily include Coricidin brand decongestant Continue Robitussin or Delsym with expectorant Steroids as directed--take with food heat to the face 20-30 minutes 4-6 times a day for pain Salt water gargles, throat lozenges or throat sprays as desired Your strep test today was negative. A throat culture will be sent to the laboratory for further testing. IF the test is positive, you will receive a phone call within 48 hours and an appropriate antibiotic will be initiated at that time. If your symptoms persist, change or worsen significantly before you can contact your personal physician then please, without delay, go to the emergency department for further evaluation. Follow-up with PCP in 7-10 days or sooner if needed Follow up with PCP soon in regards to your blood pressure which is elevated above threshold for referral. Blood pressure above 120/80 may indicate pre-hypertension. 145/75 Patient Language: Wallisian Prescriptions: New prednisone 20 mg tablet 20 mg PO BID Qty: 10 0RF No Action atorvastatin 40 mg tablet 40 mg PO DAILY naproxen 500 mg tablet 500 mg PO PRN PRN (Reason: Pain) ropinirole 2 mg tablet 2 mg PO DAILY levothyroxine 150 mcg tablet 150 mcg PO DAILY nitroglycerin 0.4 mg tablet, sublingual 0.4 mg sublingual PRN PRN (Reason: Chest Pain) ramipril 10 mg capsule 10 mg PO DAILY sildenafil 25 mg Tablet 25 mg PO DAILY PRN (Reason: Erectile Dysfunction) aspirin 81 mg Tablet 81 mg PO DAILY pramipexole 1 mg tablet varenicline tartrate 0.5 mg (11)- 1 mg (42) tablets,dose pack amlodipine 5 mg tablet 5 mg PO DAILY metoprolol succinate 25 mg tablet extended release 24 hr 25 mg PO Q24H ropinirole 4 mg tablet 4 mg PO QPM Eliquis 5 mg tablet 5 mg PO Q12H hydrocodone-acetaminophen 5-325 mg tablet 1 - 2 tablet PO Q6H PRN (Reason: pain) Qty: 20 0RF Follow-up/Referrals: Harms,Tanmay Hewitt M.D. [Primary Care Provider] - Time of Disposition: 14:28 Quality Herminio Coma Scale Eyes: Open Verbal: Oriented and Alert Motor: Follows Commands [place] Coma Total Score: 15
[2024-09-17 14:27] LABS: EDSTREPNEGPOS1 Negative (Negative)
== END 2024-09-17 14:30 | disposition home or self-care (01) ==
PROVIDERS: Emergency Provider Registered Nurse; PCP Family Medicine
DX: J06.9 Acute upper respiratory infection, unspecified (principal); J02.9 Acute pharyngitis, unspecified; Z87.891 Personal history of nicotine dependence; I48.0 Paroxysmal atrial fibrillation; I10 Essential (primary) hypertension; E78.5 Hyperlipidemia, unspecified; J44.9 Chronic obstructive pulmonary disease, unspecified; Z85.51 Personal history of malignant neoplasm of bladder; Z79.01 Long term (current) use of anticoagulants; Z79.82 Long term (current) use of aspirin
CPT/HCPCS: 87081; 87880; 99213; G0463